=== PATIENT | female | born 1940 | race Caucasian/White ===

== ENCOUNTER 2019-02-24 22:07 | Inpatient (IN) | payer MEDICARE ==
[2019-02-24] MEDS ORDERED: NITROGLYCERIN SL TABS 0.4 MG TAB SUBLINGUAL PRN (23:20)
[2019-02-24] MEDS ORDERED: HEPARIN SODIUM,PORCINE 5,000 UNIT/ML 1 ML VIAL IV PRN (23:20)
--- NOTE | 2019-02-24 23:24 | ED ---
Weakness HPI - General Chief complaint: Chest Pain Stated complaint: Cardiac issues Time Seen by Provider: 02/24/19 22:16 Source: patient, EMS, RN notes reviewed, old records reviewed Mode of arrival: EMS Limitations: no limitations - History of Present Illness Initial comments: This is a 78-year-old female the ER for evaluation patient resents today for evaluation regards to not feel well. Patient accepted in transfer for and STEMI compounded with urinary tract infection versus pyelonephritis. Patient has no abdominal pain currently. Patient on antibiotics is elevated troponin with no chest pain. No fevers no recent travel history no sick contacts. History obtained from EMS and patient's records. Patient currently denying any chest pain some mild anterior suprapubic abdominal pain MD Complaint: generalized weakness -: unknown Location: generalized Severity: mild Improves with: none Worsens with: none Context: recent illness, recent surgery Associated Symptoms: fever/chills, nausea/vomiting - Related Data Home Medications Medication Instructions Recorded Confirmed Aspirin 81 mg PO DAILY 02/24/19 02/24/19 Atorvastatin [Lipitor] 20 mg PO DAILY 02/24/19 02/24/19 Calcium Carbonate/Vitamin D3 1 tab PO HS 02/24/19 02/24/19 [Calcium 500-Vit D3 200 Tablet] Furosemide [Lasix] 20 mg PO DAILY 02/24/19 02/24/19 Lisinopril [Zestril] 5 mg PO DAILY 02/24/19 02/24/19 Magnesium Oxide [Mag-Ox] 250 mg PO DAILY 02/24/19 02/24/19 Multivitamins, Thera [Multivitamin 1 tab PO DAILY 02/24/19 02/24/19 (formulary)] Oxybutynin Chloride [Oxybutynin 10 mg PO DAILY 02/24/19 02/24/19 Chloride ER] Tamsulosin HCl [Flomax] 0.4 mg PO DAILY 02/24/19 02/24/19 Warfarin [Coumadin] 5 mg PO MOWEFR 02/24/19 02/24/19 Warfarin [Coumadin] 7.5 mg PO SUTUTHSA 02/24/19 02/24/19 Allergies Allergy/AdvReac Type Severity Reaction Status Date / Time codeine Allergy Nausea Verified 02/24/19 23:08 Penicillins Allergy Itching Verified 02/24/19 23:08 Review of Systems ROS Statement: Those systems with pertinent positive or pertinent negative responses have been documented in the HPI. ROS Other: All systems not noted in ROS Statement are negative. Past Medical History Past Medical History: Atrial Fibrillation, Deep Vein Thrombosis (DVT), GERD/Reflux, Renal Disease, Sleep Apnea/CPAP/BIPAP, Thyroid Disorder, Vascular Disorder History of Any Multi-Drug Resistant Organisms: None Reported Past Surgical History: Ablation, Cholecystectomy, Hysterectomy Past Psychological History: No Psychological Hx Reported Smoking Status: Former smoker Past Alcohol Use History: None Reported Past Drug Use History: None Reported General Exam Limitations: no limitations General appearance: alert, in no apparent distress Head exam: Present: atraumatic, normocephalic, normal inspection Eye exam: Present: normal appearance, PERRL, EOMI. Absent: scleral icterus, conjunctival injection, periorbital swelling ENT exam: Present: normal exam, mucous membranes moist Neck exam: Present: normal inspection. Absent: tenderness, meningismus, lymphadenopathy Respiratory exam: Present: normal lung sounds bilaterally. Absent: respiratory distress, wheezes, rales, rhonchi, stridor Cardiovascular Exam: Present: regular rate, normal rhythm, normal heart sounds. Absent: systolic murmur, diastolic murmur, rubs, gallop, clicks GI/Abdominal exam: Present: soft, normal bowel sounds. Absent: distended, tenderness, guarding, rebound, rigid Extremities exam: Present: normal inspection, full ROM, normal capillary refill. Absent: tenderness, pedal edema, joint swelling, calf tenderness Back exam: Present: normal inspection Neurological exam: Present: alert, oriented X3, CN II-XII intact Psychiatric exam: Present: normal affect, normal mood Skin exam: Present: warm, dry, intact, normal color. Absent: rash Course Vital Signs 02/24/19 22:16 Temperature 98.1 F Pulse Rate 65 Respiratory 18 Rate Blood Pressure 110/55 O2 Sat by Pulse 94 L Oximetry - Reevaluation(s) Reevaluation #1: 02/24/19 23:22 Medical record and transfer paperwork have been reviewed patient does have elevated troponin, positive urinary tract infection CT head and pelvis was negative Reevaluation #2: 02/24/19 23:23 Spoke with transferring physician regarding patient, we did accept patient's transfer hospital Reevaluation #3: 02/24/19 23:23 Patient currently denies any chest pain or shortness of breath - Consultations Consultation #1: spoke w Dr Green who accepts admission Medical Decision Making - Medical Decision Making 38 female the ER for evaluation presents today for evaluation in transfer, patient with urinary tract infection complicated and NSTEMI, troponin elevation with no EKG changes, no chest pain Disposition Clinical Impression: NSTEMI (non-ST elevated myocardial infarction), UTI (urinary tract infection) Disposition: ADMITTED IP TO THIS HOSP Condition: Fair Is patient prescribed a controlled substance at d/c from ED?: No Referrals: Julieth Triana MD [Primary Care Provider] - 1-2 days
[2019-02-24] MEDS ORDERED: HEPARIN SOD,PORK IN 0.45% NACL 25,000 UNIT in 0.45% NACL 1 250ML.BAG IV SCH (23:30)
[2019-02-24] MEDS: SODIUM CHLORIDE 0.9% 1,000 ML IV SCH (23:51)
[2019-02-25 01:08] VITALS: BMI 47.2
[2019-02-25] MEDS: MORPHINE SULFATE 4 MG/ML SYRINGE IV PRN ×2 (05:45→18:04)
[2019-02-25 06:14] LABS: Mean Platelet Volume 5.8; Platelet Count 190 k/uL (150-450)
[2019-02-25 06:26] LABS: Cholesterol 133 mg/dL (<200); HDL Cholesterol 60 mg/dL (40-60); LDL Cholesterol,Calculated 59 mg/dL (0-99); Triglycerides 72 mg/dL (<150)
[2019-02-25] MEDS ORDERED: ASPIRIN 325 MG TAB PO SCH (09:00)
[2019-02-25] MEDS ORDERED: SODIUM CHLORIDE 0.9% 1,000 ML in EMPTY BAG 1 BAG IV ONE (09:03)
[2019-02-25] MEDS ORDERED: ALPRAZolam 0.25 MG TAB PO PRN (09:03)
[2019-02-25] MEDS ORDERED: ASPIRIN 325 MG TAB PO STA (09:03)
[2019-02-25] MEDS ORDERED: NITROGLYCERIN SL TABS 0.4 MG TAB SUBLINGUAL PRN (09:03)
[2019-02-25] MEDS ORDERED: ATORVASTATIN 80 MG TAB PO STA (09:03)
[2019-02-25] MEDS ORDERED: ALPRAZolam 0.5 MG TAB PO PRN (09:03)
[2019-02-25 09:20] LABS: Calcium 9.3 mg/dL (8.4-10.2); Magnesium 2.2 mg/dL (1.6-2.3); Potassium 4.3 mmol/L (3.5-5.1)
[2019-02-25 09:29] LABS: Basophils % (A) 1 %; Eosinophils % (A) 1 %; HCT 37.4 % (34.0-46.0); HGB 12.2 gm/dL (11.4-16.0); Hypochromasia Slight; Lymphocytes # (A) 0.8 k/uL (1.0-4.8); Lymphocytes % (A) 16 %; MCH 31.1 pg (25.0-35.0); MCHC 32.7 g/dL (31.0-37.0); MCV 95.1 fL (80.0-100.0); Mean Platelet Volume 6.5; Monocytes # (A) 0.4 k/uL (0-1.0); Monocytes % (A) 9 %; Neutrophils # (A) 3.3 k/uL (1.3-7.7); Neutrophils % (A) 70 %; Platelet Count 199 k/uL (150-450); RBC 3.94 m/uL (3.80-5.40); RDW 13.4 % (11.5-15.5); WBC 4.7 k/uL (3.8-10.6)
[2019-02-25] MEDS ORDERED: IV FLUID CONTINUATION 1,000 ML IV ONE (11:12)
[2019-02-25] MEDS ORDERED: fentaNYL (PF) 50 MCG/ML 2 ML AMP ONE (11:44)
[2019-02-25] MEDS ORDERED: LIDOCAINE 1% INJ 10MG/ML (20 ML MDV) SQ ONE (11:47)
[2019-02-25] MEDS ORDERED: fentaNYL (PF) 50 MCG/ML 2 ML AMP IV ONE (11:48)
[2019-02-25] MEDS ORDERED: MIDAZOLAM 2 MG/2 ML VIAL IV ONE (11:48)
--- NOTE | 2019-02-25 11:59 | P.HPIM ---
History of Present Illness 78-year-old female came in with complaints of weakness tiredness and a fall. Found to have elevated troponinof 2.5 and 1.77 patient has normal kidney function. Patient was believed to have UTI because of abnormal uterine and tiredness and apparently had some increased urinary frequency as well. Although his Fall, tiredness is probably secondary to myocardial infarction. Patient denied any syncopal episode. Patient will undergo cardiac catheterization today.patient denied any fever chills patient doesn't have any leukocytosis Review of Systems REVIEW OF SYSTEMS: CONSTITUTIONAL: as mentioned in HPI HEENT: No recent visual problems or hearing problems. Denied any sore throat. CARDIOVASCULAR: No chest pain, orthopnea, PND, no palpitations, no syncope. PULMONARY: No shortness of breath, no cough, no hemoptysis. GASTROINTESTINAL: No diarrhea, no nausea, no vomiting, no abdominal pain. NEUROLOGICAL: No headaches, no weakness, no numbness. HEMATOLOGICAL: Denies any bleeding or petechiae. GENITOURINARY: Denies any burning micturition, frequency, or urgency. MUSCULOSKELETAL/RHEUMATOLOGICAL: Denies any joint pain, swelling, or any muscle pain. ENDOCRINE: Denies any polyuria or polydipsia. The rest of the 14-point review of systems is negative. Past Medical History Past Medical History: Atrial Fibrillation, Deep Vein Thrombosis (DVT), GERD/Reflux, Renal Disease, Sleep Apnea/CPAP/BIPAP, Thyroid Disorder, Vascular Disorder History of Any Multi-Drug Resistant Organisms: None Reported Past Surgical History: Ablation, Cholecystectomy, Hysterectomy Additional Past Surgical History / Comment(s): urinary stent placed 02/23 19 Past Psychological History: No Psychological Hx Reported Smoking Status: Former smoker Past Alcohol Use History: None Reported Past Drug Use History: None Reported Medications and Allergies Home Medications Medication Instructions Recorded Confirmed Type Aspirin 81 mg PO DAILY 02/24/19 02/24/19 History Atorvastatin [Lipitor] 20 mg PO DAILY 02/24/19 02/24/19 History Calcium Carbonate/Vitamin D3 1 tab PO HS 02/24/19 02/24/19 History [Calcium 500-Vit D3 200 Tablet] Furosemide [Lasix] 20 mg PO DAILY 02/24/19 02/24/19 History Lisinopril [Zestril] 5 mg PO DAILY 02/24/19 02/24/19 History Magnesium Oxide [Mag-Ox] 250 mg PO DAILY 02/24/19 02/24/19 History Multivitamins, Thera [Multivitamin 1 tab PO DAILY 02/24/19 02/24/19 History (formulary)] Oxybutynin Chloride [Oxybutynin 10 mg PO DAILY 02/24/19 02/24/19 History Chloride ER] Tamsulosin HCl [Flomax] 0.4 mg PO DAILY 02/24/19 02/24/19 History Warfarin [Coumadin] 5 mg PO MOWEFR 02/24/19 02/24/19 History Warfarin [Coumadin] 7.5 mg PO SUTUTHSA 02/24/19 02/24/19 History Allergies Allergy/AdvReac Type Severity Reaction Status Date / Time codeine Allergy Nausea Verified 02/24/19 23:08 Penicillins Allergy Itching Verified 02/24/19 23:08 Physical Exam Vitals: Vital Signs Temp Pulse Pulse Resp BP BP Pulse Ox 02/25/19 08:00 97.9 F 63 18 134/60 96 02/25/19 04:00 97.9 F 61 19 136/81 98 02/25/19 00:00 98.1 F 60 18 134/66 94 L 02/24/19 23:53 69 18 108/60 96 02/24/19 23:41 98.4 F 60 18 133/60 94 L 02/24/19 23:20 97 02/24/19 22:16 98.1 F 65 18 110/55 94 L Intake and Output 02/24/19 02/25/19 02/25/19 22:59 06:59 14:59 Intake Total 250 Output Total 400 Balance -150 Intake: Intake, IV Titration 200 Amount Heparin Sod,Pork in 0.45% 50 NaCl 25,000 unit In 0.45 % NaCl 1 250ml.bag @ 8.33 UNITS/KG/HR 10.013 mls/ hr IV .Q24H MARILIN Rx#: [id number] Sodium Chloride 0.9% 1, 100 000 ml @ 20 mls/hr IV . Q24H [facility]ILIN Rx#:[id number] cefTRIAXone 1 gm In 50 Sodium Chloride 0.9% 50 ml @ 100 mls/hr IVPB Q24H MARILIN Rx#:[id number] Oral 50 Output: Urine 400 Other: Voiding Method Bedside Commode Bedside Commode # Voids 3 Weight 120.202 kg 121.1 kg PHYSICAL EXAMINATION: GENERAL: The patient is alert and oriented x3, not in any acute distress. obese HEENT: Pupils are round and equally reacting to light. EOMI. No scleral icterus. No conjunctival pallor. Normocephalic, atraumatic. No pharyngeal erythema. No thyromegaly. CARDIOVASCULAR: S1 and S2 present. No murmurs, rubs, or gallops. PULMONARY: Chest is clear to auscultation, no wheezing or crackles. ABDOMEN: Soft, nontender, nondistended, normoactive bowel sounds. No palpable organomegaly. MUSCULOSKELETAL: No joint swelling or deformity. EXTREMITIES: No cyanosis, clubbing, or pedal edema. NEUROLOGICAL: Gross neurological examination did not reveal any focal deficits. SKIN: No rashes. Results CBC & Chem 7: 02/25/19 05:23 02/25/19 05:23 Labs: Abnormal Lab Results - Last 24 Hours (Table) 02/24/19 02/24/19 02/25/19 Range/Units 23:40 23:40 05:23 Lymphocytes # (1.0-4.8) k/uL APTT 48.2 H 41.8 H (22.0-30.0) sec Chloride (98-107) mmol/L Troponin I 2.590 H* (0.000-0.034) ng/mL 02/25/19 02/25/19 02/25/19 Range/Units 05:23 05:23 05:23 Lymphocytes # 0.8 L (1.0-4.8) k/uL APTT (22.0-30.0) sec Chloride 110 H (98-107) mmol/L Troponin I 1.770 H* (0.000-0.034) ng/mL Thrombosis Risk Factor Assmnt - Choose All That Apply Any of the Below Risk Factors Present?: Yes Each Factor Represents 1 point: Obesity (BMI >25), Varicose veins Each Risk Factor Represents 3 Points: Age 75 years or older Thrombosis Risk Factor Assessment Total Risk Factor Score: 5 Thrombosis Risk Factor Assessment Level: High Risk Assessment and Plan Plan: -acute non-ST elevation microinfarction: that happened statin aspirin will undergo cardiac catheterization today. Patient doesn't have any chest pain. -Fatigue: Probably separate microinfarction breath and UTI -asymptomatic bacteriuria rather than urinary tract infection for now good and continue her antibiotic she received 1 dose yesterday wouldn't continue with 1 more dose today and one more dose tomorrow after that to Rocephin will be discontinued. -atrial fibrillation recent diagnosis and patient is on Coumadin which is being held for the cardiac catheterization -Gastroesophageal reflux disease -Sleep apnea -Hypothyroidism dvt prophylaxis with Pepcid
--- NOTE | 2019-02-25 12:02 | ECHOF ---
Referral Reason:lv function MEASUREMENTS -------- HEIGHT: 160.0 cm WEIGHT: 120.7 kg BP: 136/81 RVIDd: 3.4 cm (< 3.3) IVSd: 1.5 cm (0.6 - 1.1) LVIDd: 4.5 cm (3.9 - 5.3) LVPWd: 1.4 cm (0.6 - 1.1) IVSs: 1.8 cm LVIDs: 3.2 cm LVPWs: 1.8 cm LA Diam: 3.8 cm (2.7 - 3.8) LAESV Index (A-L): 31.13 ml/m Ao Diam: 3.4 cm (2.0 - 3.7) AV Cusp: 1.5 cm (1.5 - 2.6) MV EXCURSION: 15.119 mm (> 18.000) MV EF SLOPE: 67 mm/s (70 - 150) EPSS: 2.1 cm MV E Gualberto: 0.90 m/s MV DecT: 216 ms MV A Gualberto: 0.98 m/s MV E/A Ratio: 0.92 AV maxP.22 mmHg AV meanP.32 mmHg FINDINGS -------- Sinus rhythm. This was a technically adequate study. The left ventricular size is normal. There is moderate concentric left ventricular hypertrophy. O verall left ventricular systolic function is normal with, an EF between 60 - 65 %. The right ventricle is mildly enlarged. LA is midly dilated 29-33ml/m2. The right atrium is normal in size. Interatrial and interventricular septum intact. There is moderate aortic valve sclerosis. There is moderate aortic stenosis present. Peak/mean gr adient across the Aortic Valve is 51.22mmHg / 27.32mmHg. Mild mitral annular calcification present. The tricuspid valve appears structurally normal. The pulmonic valve was not well visualized. The aortic root size is normal. Normal inferior vena cava with normal inspiratory collapse consistent with estimated right atrial pre ssure of 5 mmHg. There is no pericardial effusion. CONCLUSIONS -------- 1. Sinus rhythm. 2. This was a technically adequate study. 3. The left ventricular size is normal. 4. There is moderate concentric left ventricular hypertrophy. 5. Overall left ventricular systolic function is normal with, an EF between 60 - 65 %. 6. The right ventricle is mildly enlarged. 7. LA is midly dilated 29-33ml/m2. 8. The right atrium is normal in size. 9. Interatrial and interventricular septum intact. 10. There is moderate aortic valve sclerosis. 11. There is moderate aortic stenosis present. 12. Peak/mean gradient across the Aortic Valve is 51.22mmHg / 27.32mmHg. 13. Mild mitral annular calcification present. 14. The tricuspid valve appears structurally normal. 15. The pulmonic valve was not well visualized. 16. The aortic root size is normal. 17. Normal inferior vena cava with normal inspiratory collapse consistent with estimated right atrial pressure of 5 mmHg. 18. There is no pericardial effusion. VALIDATION INTERN: Rekha Brower RDCS
--- NOTE | 2019-02-25 12:27 | CONS ---
CONSULTATION CHIEF COMPLAINT: Near syncope and chest pain. Yanna is a 78-year-old lady with history of paroxysmal atrial fibrillation, status post ablation, dyslipidemia and hypertension who had recently been diagnosed with renal stones and has had ureteric stent and also had lithotripsy. Her most recent urological intervention was 2 days ago following which she went home and felt weak, tired and was down on the ground. She was lying on the floor for an hour. She did not lose consciousness, just felt fatigued and unable to get up. She did not have any chest pain or difficulty in breathing. She was helped by her brothers and subsequently EMS was called and patient was transferred to the hospital. She has had chest discomfort that she describes as tightness, mild intensity at rest without definite radiation to neck, arm or back. Her troponin was mildly elevated. She initially presented to [facility] and from there she was transferred over to [facility]. Her troponins are elevated at 2.5 and 1.7. LABS: Show that the white cell count is normal, hemoglobin is normal. Platelet count is 199, potassium is 4.3 and creatinine is 0.8 with an LDL cholesterol of 59. The patient had acute non ST-segment elevation CT and I advised her to undergo cardiac catheterization. She also has urinary tract infection and has already received a dose of antibiotic and she does not have any fever. PAST MEDICAL HISTORY: Significant for paroxysmal atrial fibrillation status post ablation, hypertension, dyslipidemia. CURRENT MEDICATIONS: Include Coumadin, Zestril, Flomax, aspirin, Lasix, Lipitor. ALLERGIES: To CODEINE and PENICILLIN. FAMILY HISTORY: Negative for premature coronary artery disease. SOCIAL HISTORY: Negative for smoking, EtOH abuse, or drug abuse. REVIEW OF SYSTEMS: HEENT: Unremarkable. CARDIAC: As described above. RESPIRATORY: Negative. GI: Negative. GENITOURINARY: Significant for renal stones. PSYCHOSOCIAL: Negative. ENDOCRINE: Negative. DERM: Negative. CONSTITUTIONAL: Negative. ONCOLOGICAL: Negative. Rest of the system review is not relevant. PHYSICAL EXAM: Patient is comfortable at rest. Afebrile. Heart rate is 60 beats per minute, blood pressure is 136/81, respiratory rate is 18. There is no jugular venous distention. Carotid upstroke is normal. There is no bruit. CHEST: Exam reveals good air entry bilaterally. HEART: Exam reveals first and second heart sounds. No gallop. No murmur. No rub. ABDOMEN: Soft, nontender. Exam of extremities did not reveal any edema. 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 LABS: As described above. I will obtain an EKG. I will obtain an echocardiogram. ASSESSMENT: 1. Acute non ST-segment elevation myocardial infarction. 2. Paroxysmal atrial fibrillation status post ablation. PLAN: Patient will undergo cardiac catheterization and will decide on further course of action. MMODL / IJN: [id number] /
[2019-02-25] MEDS ORDERED: BIVALIRUDIN BOLUS 250 MG/50 ML IV ONE (12:32)
[2019-02-25] MEDS ORDERED: BIVALIRUDIN 250 MG in SODIUM CHLORIDE 0.9% 31 ML IV ONE (12:33)
[2019-02-25] MEDS ORDERED: CLOPIDOGREL 75 MG TAB ONE (12:44)
[2019-02-25] MEDS ORDERED: IOPAMIDOL-370 125ML BTL INJ ONE (12:46)
[2019-02-25] MEDS ORDERED: CLOPIDOGREL 75 MG TAB PO ONE (12:46)
[2019-02-25] MEDS ORDERED: WARFARIN 7.5 MG TAB PO SCH (18:00)
--- NOTE | 2019-02-25 18:10 | LTR ---
DATE OF SERVICE: 02/25/[address] Triana: I performed cardiac catheterization on Yanna Montelongo. This is a 78-year-old lady with history of paroxysmal atrial fibrillation, who presented to us with near syncope and non ST-segment elevation SD. Her cardiac catheterization revealed a 60-70 percent mid right coronary artery and patient may undergo angioplasty with stent placement of the same. Thank you for giving me the privilege to participate in the care of his pleasant lady. Sincerely, ERWIN / AIDANN: [id number] /
--- NOTE | 2019-02-25 18:10 | CC ---
CARDIAC CATHETERIZATION REPORT INDICATION: Non ST-segment elevation WI. PROCEDURE NOTE: After obtaining informed consent, left heart catheterization and coronary angiogram were performed via the right femoral artery using standard Akash catheters. Patient tolerated the procedure well without any obvious immediate complications. A femoral angiogram was performed. SEDATION: The patient received moderate conscious sedation. Total sedation time was 19 minutes. The right coronary artery was selectively engaged using a brandon catheter. FINDINGS: HEMODYNAMICS: Left ventricular end-diastolic pressure is 14-16 mm. There is no significant gradient across the aortic valve. LEFT VENTRICULOGRAM: Left ventriculogram is not performed. ANGIOGRAPHIC DATA: LEFT MAIN CORONARY ARTERY: Left main coronary artery is a normal-sized vessel and is free of stenosis. Divides into left anterior descending coronary artery and circumflex coronary artery. LEFT ANTERIOR DESCENDING CORONARY ARTERY: LAD and its branches, circumflex coronary artery and its branches are free of significant stenosis. RIGHT CORONARY ARTERY: Right coronary artery is a large dominant vessel. There is a 60- 70 percent mid RCA lesion. CONCLUSIONS: 60-70% stenosis involving mid RCA. PLAN: I am going to review angiographic data with Dr. Iza Chaney, the on-call manager discovery, and see if we should stent the mid RCA. MMODL / IJN: [id number] /
--- NOTE | 2019-02-25 18:48 | PTCA ---
PERCUTANEOUSTRANS CORORONARY ANGIOGRAPHY DATE OF SERVICE: 02/25/2019 PROCEDURE: Percutaneous transluminal coronary angioplasty and stenting of mid right coronary artery with a bare metal stent. PERFORMED BY: Dr. Iza Chaney. Moderate conscious sedation time was 15 minutes. Patient was administered Versed. Oxygen saturation, hemodynamics and EKG were monitored closely. CLINICAL INFORMATION: Mrs. Yanna Montelongo is a 78-year-old lady who has history of paroxysmal atrial fibrillation, status post ablation by Dr. Briscoe. She also has hypertension and hyperlipidemia. She is on Coumadin and lisinopril and came into the hospital upon transfer from [facility], where she presented with some nonspecific symptoms, had a troponin elevation and also had recent renal artery stones with lithotripsy and a ureteral stent. She is supposed to get her ureteral stent removal in the next week or 10 days. However, she presented to [facility], had elevated troponin of up to 2.5, was transferred here with a diagnosis of acute [id number] IN. Cardiac catheterization by Dr. Khan revealed mild disease in the left system, but there was a mid RCA plaque rupture-type lesion, best seen in the HAHN projection on picture #13 image 22. There is an eccentric 70% to 80% lesion suggestive of plaque rupture. Intervention was advised and I performed this expeditiously. Given the fact patient requires a surgical procedure for stent removal in the next one month, I recommended that we use a bare metal stent after due discussion with Dr. Khan and the patient. PROCEDURE NOTE: The existing 6-German introducer in the right femoral artery was used to perform the procedure. I used a [facility] guide catheter to cannulate the right coronary artery, a run- through wire to cross the lesion. Without predilatation, a 12 mm long, 3.0 caliber Vision bare metal stent was deployed at 12 atmospheres. Patient had mild chest pain. No significant EKG changes. Excellent angiographic result was achieved without complication. The sheath was taken out and Angio-Seal device used to secure hemostasis. Patient received Angiomax bolus and infusion as per protocol. She received 600 mg of Plavix orally. The patient can have her Ureteral stent removal ideally after one month of dual antiplatelet therapy, but if this is necessary to be done sooner, it can be done after 15 days. Results were discussed with the patient and family. I expect she will be discharged in the next 24 to 48 hours. MMYAREDL / IJN: [id number] / MTDD
[2019-02-25] MEDS: ONDANSETRON 4 MG/2 ML VIAL IVP PRN (19:01)
[2019-02-25] MEDS: METOPROLOL TARTRATE 12.5 MG TAB PO SCH (20:23)
[2019-02-25] MEDS: ATORVASTATIN 80 MG TAB PO SCH (20:23)
[2019-02-25] MEDS: LISINOPRIL 10 MG TAB PO SCH (20:23)
[2019-02-25] MEDS: FAMOTIDINE 20 MG TAB PO SCH (20:23)
[2019-02-26] MEDS: SODIUM CHLORIDE 0.9% 1,000 ML IV SCH ×2 (00:05→11:39)
[2019-02-26 00:58] LABS: Basophils # (A) 0.1 k/uL (0-0.2); Basophils % (A) 2 %; Eosinophils # (A) 0.1 k/uL (0-0.7); Eosinophils % (A) 3 %; HCT 34.2 % (34.0-46.0); HGB 11.3 gm/dL (11.4-16.0); Lymphocytes # (A) 0.6 k/uL (1.0-4.8); Lymphocytes % (A) 17 %; MCH 30.5 pg (25.0-35.0); MCV 92.3 fL (80.0-100.0); Mean Platelet Volume 6.5; Monocytes # (A) 0.2 k/uL (0-1.0); Monocytes % (A) 6 %; Neutrophils # (A) 2.5 k/uL (1.3-7.7); Neutrophils % (A) 69 %; Platelet Count 205 k/uL (150-450); RBC 3.71 m/uL (3.80-5.40); RDW 13.5 % (11.5-15.5); WBC 3.7 k/uL (3.8-10.6)
[2019-02-26 07:11] LABS: HCT 37.8 % (34.0-46.0); HGB 11.9 gm/dL (11.4-16.0); MCH 29.4 pg (25.0-35.0); MCHC 31.5 g/dL (31.0-37.0); MCV 93.4 fL (80.0-100.0); Mean Platelet Volume 6.4; Platelet Count 216 k/uL (150-450); RBC 4.05 m/uL (3.80-5.40); RDW 13.5 % (11.5-15.5); WBC 5.6 k/uL (3.8-10.6)
[2019-02-26 07:18] LABS: Prothrombin Time 10.8 sec (9.0-12.0)
[2019-02-26 07:27] LABS: Potassium 4.3 mmol/L (3.5-5.1)
[2019-02-26 08:33] VITALS: RESP 18
[2019-02-26] MEDS ORDERED: LISINOPRIL 5 MG TAB PO SCH (09:00)
[2019-02-26] MEDS: METOPROLOL TARTRATE 12.5 MG TAB PO SCH ×2 (10:02→19:46)
[2019-02-26] MEDS: CLOPIDOGREL 75 MG TAB PO SCH (10:02)
[2019-02-26] MEDS: FAMOTIDINE 20 MG TAB PO SCH (10:02)
[2019-02-26] MEDS: ASPIRIN 81 MG PO SCH (10:02)
[2019-02-26] MEDS: LISINOPRIL 10 MG TAB PO SCH (10:03)
[2019-02-26] MEDS: OXYBUTYNIN 10 MG TAB.ER.24 PO SCH (10:03)
--- NOTE | 2019-02-26 12:19 | P.PN ---
Subjective Progress Note Date: 02/26/19 This is a 78-year-old female with known history of paroxysmal atrial fibrillation and prior ablation, hyperlipidemia, hypertension, who recently was diagnosed with kidney stones, has stent placed in her ureter and also lithotripsy. Her most recent urological intervention was 2 days ago, after re turning home she felt weak and tired and was found down on the ground. For approximately an hour. According to her she did not pass out, she was just too weak to get up. She presented to the hospital, complained of some symptoms of chest discomfort, troponin was mildly elevated, so the patient was taken to the cardiac catheterization lab and subsequently underwent angioplasty and stenting of the right coronary artery. Echocardiogram with Doppler study was performed which revealed an ejection fraction of 60-65%, moderate aortic stenosis. Blood pressure 124/60 with a heart rate of 60, 96% on room air. White blood cell count 5.6, hemoglobin 11.9, platelet count 216. Sodium 140, potassium 4.3, BUN 13 and creatinine 0.8. Patient feels well this morning, denies any chest pain or difficulty in breathing. EKG from this morning showed a normal sinus rhythm with no change from post-PCI. Patient has been encouraged to be up ambulating today and we'll plan for possible discharge home in 24 hours if stable. Objective - Vital Signs Vital signs: Vital Signs Temp 97.0 F L 02/26/19 12:00 Pulse 62 02/26/19 12:00 Resp 18 02/26/19 12:00 BP 124/60 02/26/19 12:00 Pulse Ox 96 02/26/19 12:00 Intake & Output 02/25/19 02/26/19 02/26/19 18:59 06:59 18:59 Intake Total 681 480 Output Total 600 Balance 681 -600 480 Weight 120.8 kg Intake: IV 321 Oral 360 480 Output: Urine 600 Other: Voiding Method Bedside Commode Bedside Commode Bedside Commode # Voids 1 1 - Exam PHYSICAL EXAMINATION: GENERAL: 78-year-old female in no acute distress at the time of my examination HEENT: Head is atraumatic, normocephalic. Pupils equal, round. Sclera anicteric. Conjunctiva are clear. Mucous membranes of the mouth are moist. Neck is supple. There is no elevated jugular venous pressure. No carotid bruit is heard. HEART EXAMINATION: Heart S1 S2 1 systolic murmur is heard CHEST EXAMINATION: Lungs are clear to auscultation and precussion. No chest wall tenderness is noted on palpation or with deep breathing. ABDOMEN: Soft, nontender. Bowel sounds are heard. No organomegaly noted. EXTREMITIES: 2+ peripheral pulses with no evidence of peripheral edema and no calf tenderness noted. Right groin soft, there is no evidence of any hematoma. NEUROLOGIC patient is awake, alert and oriented 3 . . - Labs CBC & Chem 7: 02/26/19 05:51 02/26/19 05:51 Labs: Abnormal Lab Results - Last 24 Hours (Table) 02/26/19 Range/Units 00:38 WBC 3.7 L (3.8-10.6) k/uL RBC 3.71 L (3.80-5.40) m/uL Hgb 11.3 L (11.4-16.0) gm/dL Lymphocytes # 0.6 L (1.0-4.8) k/uL Assessment and Plan Plan: Assessment and plan #1 non-ST elevation myocardial infarction, status post angioplasty and stenting of the right coronary artery. #2 paroxysmal atrial fibrillation #3 hyperlipidemia #4 hypothyroidism #5 recent ureteral stenting #6 moderate aortic stenosis Plan We will continue the patient on her current medications, continue to monitor the patient for 24 hours and plan for possible discharge home in the morning if stable. DNP note has been reviewed, I agree with a documented findings and plan of care. Patient was seen and examined.
[2019-02-26] MEDS ORDERED: IPRATROPIUM-ALBUTEROL 3 ML NEB INHALATION PRN (12:35)
--- NOTE | 2019-02-26 12:38 | P.PN ---
Subjective 78-year-old female came in with complaints of weakness tiredness and a fall. Found to have elevated troponinof 2.5 and 1.77 patient has normal kidney function. Patient was believed to have UTI because of abnormal uterine and tiredness and apparently had some increased urinary frequency as well. Although his Fall, tiredness is probably secondary to myocardial infarction. Patient denied any syncopal episode. Patient will undergo cardiac catheterization today.patient denied any fever chills patient doesn't have any leukocytosis 02/26/2019 Patient had a cardiac catheterization and stent to RCA patient is clinically doing well at this time. Patient has some wheeze on exam patient will be started on inhaled steroids and inhalation treatments. Constitutional: Denied any fatigue denied any fever. Cardio vascular: denied any chest pain, palpitations Gastrointestinal denied any nausea vomiting Pulmonary: Denied any shortness of breath cough Neurologic denied any new focal deficits All inpatient medications were reviewed and appropriate changes in these medications as dictated in the interval history and assessment and plan. Objective - Vital Signs Vital signs: Vital Signs Temp 97.0 F L 02/26/19 12:00 Pulse 62 02/26/19 12:00 Resp 18 02/26/19 12:00 BP 124/60 02/26/19 12:00 Pulse Ox 96 02/26/19 12:00 Intake & Output 02/25/19 02/26/19 02/26/19 18:59 06:59 18:59 Intake Total 681 480 Output Total 600 Balance 681 -600 480 Weight 120.8 kg Intake: IV 321 Oral 360 480 Output: Urine 600 Other: Voiding Method Bedside Commode Bedside Commode Toilet Bedside Commode # Voids 1 1 - Exam PHYSICAL EXAMINATION: GENERAL: The patient is alert and oriented x3, not in any acute distress. obese HEENT: Pupils are round and equally reacting to light. EOMI. No scleral icterus. No conjunctival pallor. Normocephalic, atraumatic. No pharyngeal erythema. No thyromegaly. CARDIOVASCULAR: S1 and S2 present. No murmurs, rubs, or gallops. PULMONARY: Minimal expiratory wheeze on exam ABDOMEN: Soft, nontender, nondistended, normoactive bowel sounds. No palpable organomegaly. MUSCULOSKELETAL: No joint swelling or deformity. EXTREMITIES: No cyanosis, clubbing, or pedal edema. NEUROLOGICAL: Gross neurological examination did not reveal any focal deficits. SKIN: No rashes. - Labs CBC & Chem 7: 02/26/19 05:51 02/26/19 05:51 Labs: Abnormal Lab Results - Last 24 Hours (Table) 02/26/19 Range/Units 00:38 WBC 3.7 L (3.8-10.6) k/uL RBC 3.71 L (3.80-5.40) m/uL Hgb 11.3 L (11.4-16.0) gm/dL Lymphocytes # 0.6 L (1.0-4.8) k/uL Assessment and Plan Plan: -acute non-ST elevation microinfarction: that happened statin aspirin patient is status post cardiac catheterization and stenting to RCA -Fatigue: Probably due to myocardial infarction my suspicion is low for UTI patient received 3 days of antibiotics anyway and medics were discontinued -asymptomatic bacteriuria rather than urinary tract infection -atrial fibrillation recent diagnosis and patient is on Coumadin which is being resumed now patient is also on aspirin and Plavix -Mild COPD exacerbation patient will be started on inhaled steroids and inhalational treatments. -Gastroesophageal reflux disease -Sleep apnea -Hypothyroidism dvt prophylaxis with Pepcid
[2019-02-26] MEDS ORDERED: WARFARIN 5 MG TAB PO SCH (18:00)
[2019-02-26] MEDS: ATORVASTATIN 80 MG TAB PO SCH (19:46)
[2019-02-26] MEDS: SYMBICORT 160-4.5 MCG INHALER INHALATION SCH (20:20)
[2019-02-26] MEDS ORDERED: CALCIUM CARB-VIT D 500MG-200UN 1 EACH TAB PO SCH (21:00)
[2019-02-26] MEDS: ONDANSETRON 4 MG/2 ML VIAL IVP PRN (21:27)
[2019-02-27] MEDS ORDERED: LEVOTHYROXINE 88 MCG TAB PO SCH (06:30)
[2019-02-27 06:39] LABS: Mean Platelet Volume 6.4; Platelet Count 211 k/uL (150-450)
[2019-02-27 06:49] LABS: INR 1.1 (<1.2); Prothrombin Time 11.7 sec (9.0-12.0)
[2019-02-27] MEDS: SYMBICORT 160-4.5 MCG INHALER INHALATION SCH (08:23)
[2019-02-27] MEDS ORDERED: MULTIVITAMINS, THERA 1 EACH TAB PO SCH (09:00)
[2019-02-27] MEDS ORDERED: TAMSULOSIN 0.4 MG CAP.ER.24H PO SCH (09:00)
[2019-02-27] MEDS ORDERED: FUROSEMIDE 20 MG TAB PO SCH (09:00)
[2019-02-27] MEDS ORDERED: MAGNESIUM OXIDE 400 MG TAB PO SCH (09:00)
[2019-02-27] MEDS ORDERED: FAMOTIDINE 20 MG TAB PO SCH (09:00)
[2019-02-27] MEDS: CLOPIDOGREL 75 MG TAB PO SCH (09:51)
[2019-02-27] MEDS: METOPROLOL TARTRATE 12.5 MG TAB PO SCH (09:51)
[2019-02-27] MEDS: LISINOPRIL 10 MG TAB PO SCH (09:52)
[2019-02-27] MEDS: OXYBUTYNIN 10 MG TAB.ER.24 PO SCH (09:53)
--- NOTE | 2019-02-27 10:36 | P.PN ---
Subjective Progress Note Date: 02/27/19 This is a 78-year-old female with known history of paroxysmal atrial fibrillation and prior ablation, hyperlipidemia, hypertension, who recently was diagnosed with kidney stones, has stent placed in her ureter and also lithotripsy. Her most recent urological intervention was 2 days ago, after re turning home she felt weak and tired and was found down on the ground. For approximately an hour. According to her she did not pass out, she was just too weak to get up. She presented to the hospital, complained of some symptoms of chest discomfort, troponin was mildly elevated, so the patient was taken to the cardiac catheterization lab and subsequently underwent angioplasty and stenting of the right coronary artery. Echocardiogram with Doppler study was performed which revealed an ejection fraction of 60-65%, moderate aortic stenosis. Blood pressure 124/60 with a heart rate of 60, 96% on room air. White blood cell count 5.6, hemoglobin 11.9, platelet count 216. Sodium 140, potassium 4.3, BUN 13 and creatinine 0.8. Patient feels well this morning, denies any chest pain or difficulty in breathing. EKG from this morning showed a normal sinus rhythm with no change from post-PCI. Patient has been encouraged to be up ambulating today and we'll plan for possible discharge home in 24 hours if stable. 02/27/2019 Patient was seen and examined this morning, denied any chest discomfort, breathing is stable. Blood pressure 112/60 with a heart rate in the 70s, 93% on 2 L of oxygen. Objective - Vital Signs Vital signs: Vital Signs Temp 98.2 F 02/27/19 04:00 Pulse 71 02/27/19 04:00 Resp 18 02/27/19 04:00 BP 112/66 02/27/19 04:00 Pulse Ox 93 L 02/27/19 04:00 Intake & Output 02/26/19 02/27/19 02/27/19 18:59 06:59 18:59 Intake Total 960 240 Output Total 100 Balance 960 -100 240 Weight 123.5 kg Intake: Oral 960 240 Output: Urine 100 Other: Voiding Method Toilet Toilet Toilet Bedside Commode Bedside Commode Bedside Commode # Voids 1 1 - Exam PHYSICAL EXAMINATION: GENERAL: 78-year-old female in no acute distress at the time of my examination HEENT: Head is atraumatic, normocephalic. Pupils equal, round. Sclera anicteric. Conjunctiva are clear. Mucous membranes of the mouth are moist. Neck is supple. There is no elevated jugular venous pressure. No carotid bruit is heard. HEART EXAMINATION: Heart S1 S2 1 systolic murmur is heard CHEST EXAMINATION: Lungs are clear to auscultation and precussion. No chest wall tenderness is noted on palpation or with deep breathing. ABDOMEN: Soft, nontender. Bowel sounds are heard. No organomegaly noted. EXTREMITIES: 2+ peripheral pulses with no evidence of peripheral edema and no calf tenderness noted. Right groin soft, there is no evidence of any hematoma. NEUROLOGIC patient is awake, alert and oriented 3 . . - Labs CBC & Chem 7: 02/27/19 05:55 02/26/19 05:51 Assessment and Plan Plan: Assessment and plan #1 non-ST elevation myocardial infarction, status post angioplasty and stenting of the right coronary artery. #2 paroxysmal atrial fibrillation #3 hyperlipidemia #4 hypothyroidism #5 recent ureteral stenting #6 moderate aortic stenosis Plan We will continue the patient on her current medications, cleared for discharge home today from cardiology standpoint. We'll make her a follow-up appointment to see Dr. Briscoe in the office next week. DNP note has been reviewed, I agree with a documented findings and plan of care. Patient was seen and examined.
[2019-02-27] MEDS: ASPIRIN 81 MG PO SCH (11:17)
[2019-02-27 12:58] VITALS: BP 102/60; PULSE 70; TEMP 98.4
--- NOTE | 2019-02-27 13:30 | P.DS ---
Providers Date of admission: 02/24/19 23:20 Expected date of discharge: 02/27/19 Attending physician: Zehra Green Consults: 02/24/19 23:20 Consult Physician Urgent Consulting Provider: Brittnee Sotelo Consult Reason/Comments: nstemi Do you want consulting provider notified?: Yes Primary care physician: Julieth Triana [facility] Hospital Course: 78-year-old female came in with complaints of weakness tiredness and a fall. Found to have elevated troponinof 2.5 and 1.77 patient has normal kidney function. Patient was believed to have UTI because of abnormal uterine and tiredness and apparently had some increased urinary frequency as well. Although his Fall, tiredness is probably secondary to myocardial infarction. Patient denied any syncopal episode. Patient will undergo cardiac catheterization today.patient denied any fever chills patient doesn't have any leukocytosis 02/26/2019 Patient had a cardiac catheterization and stent to RCA patient is clinically doing well at this time. Patient has some wheeze on exam patient will be started on inhaled steroids and inhalation treatments. 02/27/19 Patient feels well this morning, denies any chest pain or difficulty in breathin g. EKG from this morning showed a normal sinus rhythm with no change from post- PCI. patient will b dc'ed to SNF and f/u with Cards in 1 week Patient Condition at Discharge: Fair Plan - Discharge Summary Discharge Rx Participant: No New Discharge Prescriptions: New Warfarin [Coumadin] 5 mg PO DAILY@1800 #30 tab Atorvastatin [Lipitor] 80 mg PO HS #30 tab Metoprolol Tartrate [Lopressor] 12.5 mg PO BID #30 tab Nitroglycerin Sl Tabs [Nitrostat] 0.4 mg SUBLINGUAL Q5M PRN #14 tab PRN Reason: Chest Pain Clopidogrel [Plavix] 75 mg PO DAILY #30 tab Budesonide-Formot 160-4.5 Mcg [Symbicort 160-4.5 Mcg Inhaler] 2 puff INHALATION RT-BID #1 puff Lisinopril [Zestril] 10 mg PO DAILY #30 tab No Action Oxybutynin Chloride [Oxybutynin Chloride ER] 10 mg PO DAILY Multivitamins, Thera [Multivitamin (formulary)] 1 tab PO DAILY Magnesium Oxide [Mag-Ox] 250 mg PO DAILY Lisinopril [Zestril] 5 mg PO DAILY Aspirin 81 mg PO DAILY Furosemide [Lasix] 20 mg PO DAILY Atorvastatin [Lipitor] 20 mg PO DAILY Warfarin [Coumadin] 5 mg PO MOWE Warfarin [Coumadin] 7.5 [facility] Calcium Carbonate/Vitamin D3 [Calcium 500-Vit D3 200 Tablet] 1 tab PO HS Tamsulosin HCl [Flomax] 0.4 mg PO DAILY Levothyroxine Sodium [Synthroid] 88 mcg PO DAILY Discharge Medication List Aspirin 81 mg PO DAILY 02/24/19 [History] Atorvastatin [Lipitor] 20 mg PO DAILY 02/24/19 [History] Calcium Carbonate/Vitamin D3 [Calcium 500-Vit D3 200 Tablet] 1 tab PO HS 02/24/19 [History] Furosemide [Lasix] 20 mg PO DAILY 02/24/19 [History] Lisinopril [Zestril] 5 mg PO DAILY 02/24/19 [History] Magnesium Oxide [Mag-Ox] 250 mg PO DAILY 02/24/19 [History] Multivitamins, Thera [Multivitamin (formulary)] 1 tab PO DAILY 02/24/19 [History] Oxybutynin Chloride [Oxybutynin Chloride ER] 10 mg PO DAILY 02/24/19 [History] Tamsulosin HCl [Flomax] 0.4 mg PO DAILY 02/24/19 [History] Warfarin [Coumadin] 5 mg PO MOWEFR 02/24/19 [History] Warfarin [Coumadin] 7.5 mg PO SUTUTHSA 02/24/19 [History] Levothyroxine Sodium [Synthroid] 88 mcg PO DAILY 02/26/19 [History] Atorvastatin [Lipitor] 80 mg PO HS #30 tab 02/27/19 [Rx] Budesonide-Formot 160-4.5 Mcg [Symbicort 160-4.5 Mcg Inhaler] 2 puff INHALATION RT-BID #1 puff 02/27/19 [Rx] Clopidogrel [Plavix] 75 mg PO DAILY #30 tab 02/27/19 [Rx] Lisinopril [Zestril] 10 mg PO DAILY #30 tab 02/27/19 [Rx] Metoprolol Tartrate [Lopressor] 12.5 mg PO BID #30 tab 02/27/19 [Rx] Nitroglycerin Sl Tabs [Nitrostat] 0.4 mg SUBLINGUAL Q5M PRN #14 tab 02/27/19 [Rx] Warfarin [Coumadin] 5 mg PO DAILY@1800 #30 tab 02/27/19 [Rx] Follow up Appointment(s)/Referral(s): Fantasma Briscoe MD [STAFF PHYSICIAN] - 03/06/19 11:30 am (Saturday with [employer] -Previously scheduled appointment) Julieth Triana MD [Primary Care Provider] - 1-2 days Patient Instructions/Handouts: *Surgery [facility] - After Heart Catheterization - General Freight Agent Instructions, Urinary Tract Infection in Women (DC) Activity/Diet/Wound Care/Special Instructions: CARDIAC CATHETERIZATION INSTRUCTIONS: 1. Support your puncture site by applying firm, steady pressure whenever you cough, laugh, sneeze or bear down to have a bowel movement (2-day restriction). 2. Watch for any excessive bruising, active bleeding, a firm knot forming under your skin, extreme tenderness and signs of infection (redness, swelling, fever). 3. Shower daily, do not soak puncture in a tub bath, jacuzzi, pool, jacobson etc. for 1 week. This is to prevent risk of infection. 4. Drink plenty of fluids the day of and day after your procedure to flush contrast dye out of your kidneys. 5. Take all medications as directed. Never stop any new medication without your physicians OK. 6. No driving for 2 days after procedure. 7. 10- pound weight lifting restriction for 1 week. 8. Low sodium/low fat diet. 9. Activity limited until follow up appointment with your propeller engineer. In case of any problems, please call [facility] [place] @ [phone]. Discharge Disposition: TRANSFER TO SNF/ECF
== END 2019-02-27 16:24 | DRG 249 ==
LOC: EC 22:07 → 3SCARD 23:20
PROVIDERS: ADMIT Hospitalist; ATTEND Hospitalist
PROC: 02703DZ Dilation of Coronary Artery, One Artery with Intraluminal Device, Percutaneous Approach (ICD-10-PCS; principal; 2019-02-25 11:12)
PROC: B2111ZZ Fluoroscopy of Multiple Coronary Arteries using Low Osmolar Contrast (ICD-10-PCS; 2019-02-25 11:12)
PROC: 4A023N7 Measurement of Cardiac Sampling and Pressure, Left Heart, Percutaneous Approach (ICD-10-PCS; 2019-02-25 11:12)
DX: I21.4 Non-ST elevation (NSTEMI) myocardial infarction (principal); N39.0 Urinary tract infection, site not specified; I25.10 Atherosclerotic heart disease of native coronary artery without angina pectoris; E03.9 Hypothyroidism, unspecified; E78.5 Hyperlipidemia, unspecified; G47.30 Sleep apnea, unspecified; I10 Essential (primary) hypertension; I35.0 Nonrheumatic aortic (valve) stenosis; I48.0 Paroxysmal atrial fibrillation; K21.9 Gastro-esophageal reflux disease without esophagitis; Z79.01 Long term (current) use of anticoagulants; Z79.82 Long term (current) use of aspirin; Z79.899 Other long term (current) drug therapy; Z87.442 Personal history of urinary calculi; Z87.891 Personal history of nicotine dependence; Z90.710 Acquired absence of both cervix and uterus; Z90.49 Acquired absence of other specified parts of digestive tract; Z88.5 Allergy status to narcotic agent; Z88.0 Allergy status to penicillin; Z79.890 Hormone replacement therapy
CPT/HCPCS: 80048; 80061; 83735; 84484; 85025; 85027; 85049; 85610; 85730; 92920; 93306; 93458; 94640; 99285

== ENCOUNTER 2020-07-25 09:40 | Day surgery (SDC) | payer MEDICARE ==
[2020-07-21 16:21] VITALS: BMI 48.6
[~2020-07-25 09:40] MED LIST: SODIUM CHLORIDE 0.9% 1,000 ML IV SCH
[2020-07-25 11:14] VITALS: BP 210/82; PULSE 59; RESP 18; TEMP 96.9
[2020-07-25 11:34] LABS: INR 3.3 (<1.2); Prothrombin Time 32.2 sec (9.0-12.0)
--- NOTE | 2020-07-25 15:08 | P.EPPROC ---
- EP Procedure Note Electrophysiology Procedure Note: Diagnosis Recurrent presyncope Twelve-lead EKG shows sinus bradycardia 44 beats a minute Erika prolonged MD interval [address]-T waves V3 to V6 Tilt table test for protocol Baseline heart rate 49 beats a minute Blood pressure elevated 178/70 mmHg Patient was tilted upright at night +70 per protocol. There is no symptom change in heart rate nor any significant change blood pressure With ClearSight, her blood pressure was between 130s and 150 mmHg heart rates were in the normal range The patient remained asymptomatic through the procedure She was in supine at the end of procedure Impression Abnormal ECG with a mildly prolonged MD interval narrow QRS and biphasic ST-T wa ves V3 to V6 Hypertension No evidence for neurocardiogenic syncope
== END 2020-07-25 14:20 | disposition home or self-care (01) ==
LOC: CATHEP 09:40
PROVIDERS: ATTEND Internal Medicine Clinical Cardiac Electrophysiology
DX: I49.5 Sick sinus syndrome (principal); I35.1 Nonrheumatic aortic (valve) insufficiency; I48.92 Unspecified atrial flutter; R06.02 Shortness of breath; I48.0 Paroxysmal atrial fibrillation; I10 Essential (primary) hypertension; E78.5 Hyperlipidemia, unspecified; Z72.0 Tobacco use; R53.83 Other fatigue; G47.33 Obstructive sleep apnea (adult) (pediatric); I38 Endocarditis, valve unspecified; I25.10 Atherosclerotic heart disease of native coronary artery without angina pectoris; Z95.5 Presence of coronary angioplasty implant and graft; Z79.82 Long term (current) use of aspirin; Z79.899 Other long term (current) drug therapy; Z79.01 Long term (current) use of anticoagulants; Z79.890 Hormone replacement therapy; Z88.5 Allergy status to narcotic agent; Z88.0 Allergy status to penicillin
CPT/HCPCS: 85610; 93660

== ENCOUNTER 2020-11-17 17:47 | Observation (INO) | payer MEDICARE ==
--- NOTE | 2020-11-17 18:20 | ED ---
General Adult HPI - General Chief complaint: Neuro Symptoms/Deficit Stated complaint: Numbness on Lt Side/Chest Pain Time Seen by Provider: 11/17/20 18:06 Source: patient Mode of arrival: wheelchair Limitations: no limitations - History of Present Illness Initial comments: Dictation was produced using [employer] dictation software. please excuse any gr ammatical, word or spelling errors. Chief Complaint: 80-year-old female presents to the emergency department for left sided History of Present Illness: She is 80-year-old female she states she feels numb to her left shoulder and left lower face and left upper extremity. She states that spent ongoing for the last several hours. She initially noticed it last night. States that the numbness woke her up from sleep. She has no other complaints. Denies any weakness in extremities. No history of stroke. She has history of cardiac disease. Family member at bedside reports no confusion. Patient takes Coumadin. The ROS documented in this emergency department record has been reviewed and confirmed by me. Those systems with pertinent positive or negative responses have been documented in the HPI. All other systems are other negative and/or noncontributory. PHYSICAL EXAM: General Impression: Alert and oriented x3, not in acute distress HEENT: Normocephalic atraumatic, extra-ocular movements intact, pupils equal and reactive to light bilaterally, mucous membranes moist. Cardiovascular: Heart regular rate and rhythm Chest: Able to complete full sentences, no retractions, no tachypnea Abdomen: abdomen soft, non-tender, non-distended, no organomegaly Musculoskeletal: Pulses present and equal in all extremities, no peripheral edema Motor: no focal deficits noted Neurological: CN II-XII grossly intact, no extremity weakness, non-aphasic, NIH of 1 for abnormal sensation Skin: Intact with no visualized rashes Psych: Normal affect and mood ED course: 80-year-old female presents to the emergency department for sensory issues. Clinical presentation concerning for CVA. NIH is 1. Symptoms began last night. Patient outside of the TPA window. Vital signs upon arrival are within acceptable limits. EKG interpretation: Ventricular rate 80, sinus rhythm, AR interval 240, QRS 82, QTc 459. No AR prolongation, no QTC prolongation, no ST or T-wave changes noted. EKG compared to 07/25/2020 showing no changes. Overall, this EKG is unremarkable Laboratory evaluation obtained. CBC markable. INR is therapeutic at 2.9. Metabolic panel is negative. Computed tomography scan of the brain and CT angios the head and neck shows no acute processes. Patient revived bedside at 8:25 PM she is found to be stable medical condition she is still complaining of left-sided paresthesias. At this point CVAs part of the differential. Patient be admitted with consultation to neurology. Patient given aspirin. - Related Data Home Medications Medication Instructions Recorded Confirmed Aspirin 81 mg PO DAILY 02/24/19 07/25/20 Furosemide [Lasix] 20 mg PO DAILY PRN 02/24/19 07/21/20 Magnesium Oxide [Mag-Ox] 250 mg PO BID 02/24/19 07/25/20 Multivitamins, Thera [Multivitamin 1 tab PO DAILY 02/24/19 07/25/20 (formulary)] Levothyroxine Sodium [Synthroid] 88 mcg PO DAILY 02/26/19 07/25/20 Acetaminophen [Tylenol Arthritis] 650 mg PO DAILY PRN 07/21/20 07/25/20 Atorvastatin [Lipitor] 40 mg PO HS 07/21/20 07/25/20 Carvedilol [Coreg] 3.125 mg PO BID 07/21/20 07/25/20 Cinnamon 25 mg PO BID 07/21/20 Diclofenac Sodium [Voltaren 2 gm TOPICAL DAILY PRN 07/21/20 07/25/20 Arthritis Pain 1% Gel] Gabapentin [Neurontin] 100 mg PO HS 07/21/20 07/25/20 Warfarin [Coumadin] 5 mg PO SUTUTHFR 07/21/20 07/25/20 Warfarin [Coumadin] 7.5 mg PO MOWESA 07/21/20 07/25/20 lisinopriL [Zestril] 5 mg PO DAILY 07/21/20 07/25/20 Allergies Allergy/AdvReac Type Severity Reaction Status Date / Time codeine Allergy Nausea Verified 11/17/20 17:56 Latex, Natural Rubber Allergy Itching Verified 11/17/20 17:56 Penicillins Allergy Itching Verified 11/17/20 17:56 Review of Systems ROS Statement: Those systems with pertinent positive or pertinent negative responses have been documented in the HPI. ROS Other: All systems not noted in ROS Statement are negative. Past Medical History Past Medical History: Atrial Fibrillation, Deep Vein Thrombosis (DVT), GERD/R eflux, Hyperlipidemia, Hypertension, Myocardial Infarction ([place]), Renal Disease, Sleep Apnea/CPAP/BIPAP, Thyroid Disorder, Vascular Disorder Additional Past Medical History / Comment(s): kidney stones, cpap, dizziness Last Myocardial Infarction Date:: 01/2019 History of Any Multi-Drug Resistant Organisms: None Reported Past Surgical History: Cardiac Ablation, Cholecystectomy, Heart Catheterization With Stent, Hysterectomy Additional Past Surgical History / Comment(s): urinary stent placed 02/23/19 Past Anesthesia/Blood Transfusion Reactions: No Reported Reaction, Motion Sickness Past Psychological History: No Psychological Hx Reported Smoking Status: Former smoker General Exam Limitations: no limitations Course Vital Signs 11/17/20 17:56 Temperature 98.3 F Pulse Rate 95 Respiratory 18 Rate Blood Pressure 149/69 O2 Sat by Pulse 94 L Oximetry Medical Decision Making - Lab Data Result diagrams: 11/17/20 18:17 11/17/20 18:17 Lab Results 11/17/20 11/17/20 11/17/20 Range/Units 18:17 18:17 18:17 WBC 5.1 (3.8-10.6) k/uL RBC 4.72 (3.80-5.40) m/uL Hgb 14.6 (11.4-16.0) gm/dL Hct 43.7 (34.0-46.0) % MCV 92.6 (80.0-100.0) fL MCH 30.9 (25.0-35.0) pg MCHC 33.3 (31.0-37.0) g/dL RDW 13.0 (11.5-15.5) % Plt Count 214 (150-450) k/uL MPV 7.5 Neutrophils % 69 % Lymphocytes % 20 % Monocytes % 6 % Eosinophils % 3 % Basophils % 1 % Neutrophils # 3.5 (1.3-7.7) k/uL Lymphocytes # 1.0 (1.0-4.8) k/uL Monocytes # 0.3 (0-1.0) k/uL Eosinophils # 0.2 (0-0.7) k/uL Basophils # 0.0 (0-0.2) k/uL PT 28.2 H (9.0-12.0) sec INR 2.9 H (<1.2) APTT 35.7 H (22.0-30.0) sec Sodium 140 (137-145) mmol/L Potassium 3.6 (3.5-5.1) mmol/L Chloride 106 (98-107) mmol/L Carbon Dioxide 28 (22-30) mmol/L Anion Gap 6 mmol/L BUN 21 H (7-17) mg/dL Creatinine 0.68 (0.52-1.04) mg/dL Est GFR (CKD-EPI)AfAm >90 (>60 ml/min/1.73 sqM) Est GFR (CKD-EPI)NonAf 84 (>60 ml/min/1.73 sqM) Glucose 177 H (74-99) mg/dL POC Glucose (mg/dL) (75-99) mg/dL POC Glu Surgical Services Assistant ID Calcium 9.6 (8.4-10.2) mg/dL 11/17/20 Range/Units 18:24 WBC (3.8-10.6) k/uL RBC (3.80-5.40) m/uL Hgb (11.4-16.0) gm/dL Hct (34.0-46.0) % MCV (80.0-100.0) fL MCH (25.0-35.0) pg MCHC (31.0-37.0) g/dL RDW (11.5-15.5) % Plt Count (150-450) k/uL MPV Neutrophils % % Lymphocytes % % Monocytes % % Eosinophils % % Basophils % % Neutrophils # (1.3-7.7) k/uL Lymphocytes # (1.0-4.8) k/uL Monocytes # (0-1.0) k/uL Eosinophils # (0-0.7) k/uL Basophils # (0-0.2) k/uL PT (9.0-12.0) sec INR (<1.2) APTT (22.0-30.0) sec Sodium (137-145) mmol/L Potassium (3.5-5.1) mmol/L Chloride (98-107) mmol/L Carbon Dioxide (22-30) mmol/L Anion Gap mmol/L BUN (7-17) mg/dL Creatinine (0.52-1.04) mg/dL Est GFR (CKD-EPI)AfAm (>60 ml/min/1.73 sqM) Est GFR (CKD-EPI)NonAf (>60 ml/min/1.73 sqM) Glucose (74-99) mg/dL POC Glucose (mg/dL) 178 H (75-99) mg/dL POC Glu Surgical Services Assistant ID Nabeel England Nicole Calcium (8.4-10.2) mg/dL Disposition Clinical Impression: Paresthesia of left arm Disposition: ADMITTED IP TO THIS HOSP Condition: Fair Referrals: Julieth Triana MD [Primary Care Provider] - 1-2 days
[2020-11-17 18:26] LABS: Glucose,Whole Blood 178 mg/dL (75-99)
[2020-11-17 18:48] LABS: Basophils % (A) 1 %; Eosinophils # (A) 0.2 k/uL (0-0.7); Eosinophils % (A) 3 %; HCT 43.7 % (34.0-46.0); HGB 14.6 gm/dL (11.4-16.0); Lymphocytes % (A) 20 %; MCH 30.9 pg (25.0-35.0); MCHC 33.3 g/dL (31.0-37.0); MCV 92.6 fL (80.0-100.0); Mean Platelet Volume 7.5; Monocytes # (A) 0.3 k/uL (0-1.0); Monocytes % (A) 6 %; Neutrophils # (A) 3.5 k/uL (1.3-7.7); Neutrophils % (A) 69 %; Platelet Count 214 k/uL (150-450); RBC 4.72 m/uL (3.80-5.40); WBC 5.1 k/uL (3.8-10.6)
[2020-11-17 19:12] LABS: INR 2.9 (<1.2); Partial Thromboplastin Time 35.7 sec (22.0-30.0); Prothrombin Time 28.2 sec (9.0-12.0)
[2020-11-17 19:16] LABS: African American GFR (CKD) >90 (>60 ml/min/1.73 sqM); Anion Gap 6 mmol/L; Blood Urea Nitrogen 21 mg/dL (7-17); Calcium 9.6 mg/dL (8.4-10.2); Carbon Dioxide 28 mmol/L (22-30); Chloride 106 mmol/L (98-107); Glucose 177 mg/dL (74-99); Non-African American GFR(CKD) 84 (>60 ml/min/1.73 sqM); Potassium 3.6 mmol/L (3.5-5.1); Sodium 140 mmol/L (137-145)
--- NOTE | 2020-11-17 20:12 | CT ---
EXAMINATION: CT brain wo con DATE AND TIME: 11/17/2020 7:42 PM CLINICAL INDICATION: PHH; CVA TECHNIQUE: Standard departmental protocol. Total DLP: 1093.8 mGy-cm COMPARISON: None. FINDINGS: The calvarium is intact. There is no intracranial hemorrhage. There is no intracranial mass or mass effect. No definite new intra-axial or extra-axial attenuation defect. The paranasal sinuses, middle ear cavities, and mastoid sinus air cells are clear. The orbits are unremarkable. IMPRESSION: NO ACUTE PROCESS.
--- NOTE | 2020-11-17 20:20 | CT ---
EXAMINATION TYPE: CT angio head neck DATE OF EXAM: 11/17/2020 HISTORY: CVA, LT side numbness, chest pain. COMPARISON: CT brain without contrast 11/18/2019 CT DLP: 597 mGycm. Automated Exposure Control for Dose Reduction was Utilized. TECHNIQUE: CTA scan of the neck is performed with IV Contrast, patient injected with 65 mL of Isovue 370, axial images are obtained, coronal and sagittal reformatted images are reviewed. Three-D recons tructed images are created on an independent workstation and reviewed. FINDINGS: CAROTID/VASCULAR STRUCTURES: The bilateral carotid and vertebral arterial systems are widely patent w ithout hemodynamically significant stenosis or dissection. INTRACRANIAL ANTERIOR AND POSTERIOR CIRCULATION: The anterior and posterior arterial circulation is w idely patent and without abnormality. OTHER: No incidentals. IMPRESSION: No significant abnormality is seen.
[2020-11-17] MEDS ORDERED: NALOXONE 0.4 MG/ML 1 ML VIAL IV PRN (20:23)
[2020-11-17] MEDS ORDERED: ASPIRIN 81 MG PO STA (20:25)
[2020-11-18] MEDS: SODIUM CHLORIDE 0.9% 1,000 ML IV SCH ×2 (04:07→21:07)
[2020-11-18 11:05] LABS: INR 2.7 (<1.2); Prothrombin Time 26.3 sec (9.0-12.0)
[2020-11-18 12:52] LABS: African American GFR (CKD) >90 (>60 ml/min/1.73 sqM); Anion Gap 2 mmol/L; Blood Urea Nitrogen 17 mg/dL (7-17); Calcium 9.4 mg/dL (8.4-10.2); Carbon Dioxide 32 mmol/L (22-30); Chloride 106 mmol/L (98-107); Glucose 134 mg/dL (74-99); Magnesium 2.1 mg/dL (1.6-2.3); Non-African American GFR(CKD) 84 (>60 ml/min/1.73 sqM); Potassium 4.2 mmol/L (3.5-5.1); Sodium 140 mmol/L (137-145)
[2020-11-18] MEDS: INSULIN ASPART (NovoLOG) 100 UNIT/ML VIAL SQ SCH ×3 (12:52→20:08)
--- NOTE | 2020-11-18 13:17 | P.CNNES ---
History of Present Illness Consult date: 11/18/20 Requesting physician: Fernando Trujillo Reason for Consult: left sided paresthesia, ?CVA History of Present Illness: This is a 80-year-old woman with medical history of chronic neck and lower back pain, atrial fibrillation on Coumadin, hypertension, hyperlipidemia hypothyroidism, DVT, who presented to the emergency department on 11/17/2020 for tingling over the left face and entire left upper extremity. The patient stated that on 11/17/2020 she woke up around 3:00 from sleep and noticed that her left side of the cheek and left entire left upper extremity was tingling. She said that she slept around possibly 9:00 PM on 11/16/2020. She stated that her symptoms at continues to be present the currently. She denies any associated weakness of any of the upper and lower extremity that's new. She did state that she has chronic neck pain as well as lower back pain or neck pain radiates to the left shoulder but that has been going on for years and has not been worsening. She denies of any fever, any headaches, any difficulty getting her words out, any difficulty swallowing, any tingling or numbness anywhere else. She denies any numbness in the face or the left upper extremity at. She stated that she had similar presentation 2001 where she had the cervical surgery was anterior and it was a "cadaver bone" that has resolved. She denies of any nausea or vomiting. Denies of any photophobia photophobia. She stated that the she is also having some left chest pain/pressure. Also is having redness of both eyes and that has started since she's been getting that cataract surgery she had the cataract she thinks in June the right eye and the other eye was a month after and she feels the the redness of the eye had been progressively worse initially started on the right now it's both she followed up with her sandwich counter attendant and she notified him about the redness and that she was given eye drops but not helped. She denies of any ringing of the ears or hearing loss that's more than normal. She denies of any diplopia. She does have blurry vision but again she has noticed that since she is has this cataracts. She uses a cane at baseline because of her chronic lower back pain. Some of the other patient on medication is Lipitor 40 mg daily at bedtime, Synthroid, Lexapro, gabapentin 100 mg daily at bedtime, magnesium oxide, aspirin 81 mg daily. Per cardiology team "Patient recently seen in the office earlier this month had some complaints of dizziness on and off her EKG revealed sinus bradycardia heart rate 44, she was referred for tilt table test by her primary care physician. She also had an echocardiogram which revealed an EF of 55%, severe aortic stenosis which at peak gradient around 70 mmHg such a mean gradient of 45-50 mmHg, which is a progression from her aortic stenosis since 2019" Some of the workup in the hospital consisted of: Initial vital signs: Blood pressure of 149/69, heart rate of 95, respiratory of 18, temperature of 98.3 Fahrenheit and pulse ox of 94% at room air. CBC with differential is unremarkable. Chemistry panel is initial serum glucose is 177 which is elevated otherwise the rest of the chemistry panel is unremarkable. Coagulation study: PT of 28.2, INR 2.9, PTT of 35.7 and the INR is therapeutic. CT of the head is reported as no acute process. CT angiography of the head and neck was reported as no abnormality is seen. EKG is reported as sinus rhythm with sinus arrhythmia with first-degree AV block. Otherwise normal EKG. Review of Systems Review of system: The 12 point system was reviewed and apparent positive and negative per HPI. Past Medical History Past Medical History: Atrial Fibrillation, Deep Vein Thrombosis (DVT), GERD/Reflux, Hyperlipidemia, Hypertension, Myocardial Infarction ([place]), Renal Disease, Sleep Apnea/CPAP/BIPAP, Thyroid Disorder, Vascular Disorder Additional Past Medical History / Comment(s): kidney stones, cpap, dizziness Last Myocardial Infarction Date:: 01/2019 History of Any Multi-Drug Resistant Organisms: None Reported Past Surgical History: Cardiac Ablation, Cholecystectomy, Heart Catheterization With Stent, Hysterectomy Additional Past Surgical History / Comment(s): urinary stent placed 02/23/19 Past Anesthesia/Blood Transfusion Reactions: No Reported Reaction, Motion Sickness Date of Last Stent Placement:: 01/2019 Past Psychological History: No Psychological Hx Reported Smoking Status: Former smoker Past Alcohol Use History: None Reported Additional Past Alcohol Use History / Comment(s): quit smoking 1991 Past Drug Use History: None Reported Medications and Allergies Home Medications Medication Instructions Recorded Confirmed Type Aspirin 81 mg PO DAILY 02/24/19 11/17/20 History Furosemide [Lasix] 20 mg PO DAILY PRN 02/24/19 11/17/20 History Magnesium Oxide [Mag-Ox] 250 mg PO BID 02/24/19 11/17/20 History Multivitamins, Thera [Multivitamin 1 tab PO DAILY 02/24/19 11/17/20 History (formulary)] Levothyroxine Sodium [Synthroid] 88 mcg PO DAILY 02/26/19 11/17/20 History Acetaminophen [Tylenol Arthritis] 1,300 mg PO DAILY PRN 07/21/20 11/17/20 History Atorvastatin [Lipitor] 40 mg PO HS 07/21/20 11/17/20 History Cinnamon 250 mg PO BID 07/21/20 11/17/20 History Diclofenac Sodium [Voltaren 2 gm TOPICAL DAILY PRN 07/21/20 11/17/20 History Arthritis Pain 1% Gel] Gabapentin [Neurontin] 100 mg PO HS 07/21/20 11/17/20 History Warfarin [Coumadin] 5 mg PO SUMOTUTHFR 07/21/20 11/17/20 History Clotrimazole Cream [Lotrimin Cream] 1 applic TOPICAL DAILY PRN 11/17/20 11/17/20 History Warfarin [Coumadin] 7.5 mg PO WESA 11/17/20 11/17/20 History lisinopriL [Zestril] 2.5 mg PO DAILY 11/17/20 11/17/20 History amLODIPine [Norvasc] 2.5 mg PO DAILY 11/18/20 11/18/20 History Allergies Allergy/AdvReac Type Severity Reaction Status Date / Time codeine Allergy Nausea Verified 11/17/20 22:00 Latex, Natural Rubber Allergy Itching Verified 11/17/20 22:00 Penicillins Allergy Itching Verified 11/17/20 22:00 Physical Examination - Vital Signs Vital Signs: Vital Signs Temp Pulse Pulse Resp BP BP Pulse Ox 11/18/20 07:00 97.6 F 53 L 18 164/79 95 11/18/20 02:00 98.2 F 55 L 16 133/57 11/17/20 21:26 97.9 F 71 18 154/84 96 11/17/20 20:41 74 16 120/76 94 L 11/17/20 17:56 98.3 F 95 18 149/69 94 L Intake and Output 11/17/20 11/18/20 11/18/20 22:59 06:59 14:59 Other: Voiding Method Toilet # Voids 1 Weight 122.47 kg GENERAL: The patient is lying in bed and seems in moderate acute distress. CHEST: The heart rate is regular rate rhythm. No murmurs to auscultation. No carotid bruit bilaterally. LUNG: Clear to auscultation bilaterally no wheezing noted throughout. Not labored breathing. ABDOMEN/GI: Bowel sounds present in all 4 quadrants. No tenderness to palpation throughout. NEUROLOGICAL: Higher mental function: The patient is awake, alert, oriented to self, place and time. Patient is following commands. No aphasia and no neglect. Cranial nerves: The pupils are round, equal and reactive to light and accommodation. She has erythema of both eyes (scleral portion). Visual case are full to confrontation throughout. Extraocular movement is intact no nystagmus is noted. Facial sensation is normal to touch throughout (this was test 3 three and said normal but stated it was tingling and not numb). The facial strength is normal throughout. Hearing is normal bilaterally to hand rub. Tongue is midline and moved [id number] without any difficulty. No dysarthria is noted. Shoulder shrug is normal bilaterally. Motor: Gait is some antalgic and uses cane (baseline). The strength is 5 over 5 throughout. Has Lymphedema of bilateral lower extremities. Normal tone and bulk. Cerebellum: Normal finger to nose heel to lima bilaterally. Sensation: Sensation is normal to touch throughout. Reflexes (right/left): 2+ throughout except ankles are 1+ bilaterally. Plantars are downgoing bilaterally. Results - Laboratory Findings CBC and BMP: 11/17/20 18:17 11/18/20 10:38 Abnormal Lab Findings: Abnormal Labs 11/17/20 11/17/20 11/17/20 18:17 18:17 18:24 PT 28.2 H INR 2.9 H APTT 35.7 H BUN 21 H Glucose 177 H POC Glucose (mg/dL) 178 H 11/18/20 10:38 PT 26.3 H INR 2.7 H APTT BUN Glucose POC Glucose (mg/dL) Assessment and Plan Assessment: Left facial paresthesia (V2 distribution) and entire left upper extremity since 11/17. Unknown exact cause. Rule out stroke vs intracranial lesion. Complaint of chest pain Bilateral sclera erythema since had cataract initially on the right and now both --progressively worsening per patient and blurry vision but denies diplopia (for past 1-2 months) Atrial fibrillation on Coumadin (therapeutic INR) Hypertension Hyperlipidemia Hypothyroidism History of DVT Plan: I ordered MRI of the brain and the cervical spine to rule out stroke versus cervical radiculopathy (cervical radiculopathy is unlikely as cause of this). In the ED the patient was given aspirin 324 mg once then was restarted on the patient's home medication of Coumadin as well as aspirin 81 mg daily. The patient was also started on her home dose of Lipitor 40 mg daily at bedtime for secondary stroke prophylaxis. I will not modify her medication until we get her MRI imagines results. I ordered HbA1c, Vitamin B12, folate, Vitamin B6 and TSH level. PT and OT are consulted. Will hold off on 2D echo since had recent one at her geriatric physical therapist office. Every 4 hours neuro checks lipid panel ordered. Increased Gabapentin 100mg qhs to 100mg 1 tab tid and will titrate up if needed. On continuous cardiac monitoring Cardiology is consulted. Recommend Ophthamology consult. We'll defer the rest of medical management to the primary team. The plan is discussed with the patient's nurse. Thank you for the consultation. Dennis Perla M.D. Neuro-hospitalist Time with Patient: Greater than 30
[2020-11-18] MEDS: LEVOTHYROXINE 88 MCG TAB PO SCH (13:24)
[2020-11-18] MEDS: amLODIPine 2.5 MG TAB PO SCH (13:24)
[2020-11-18] MEDS: ASPIRIN 81 MG PO SCH (13:24)
--- NOTE | 2020-11-18 14:37 | P.CRDCN ---
History of Present Illness History of present illness: HISTORY OF PRESENTING ILLNESS This is a pleasant 80-year-old female past medical history significant for coronary artery disease status post PCI to mid RCA in 2019 in the setting of NSTEMI, paroxysmal atrial fibrillation on coumadin, severe/critical aortic stenosis, hypertension, sinus bradycardia, dyslipidemia, GERD. She follows in the office with Dr. Briscoe. We have been asked to see in consultation for chest pain. Patient is seen and examined at bedside in no acute distress. She p resents emergency department for tingling over the left side of her face, left side torso, and entire left upper extremity. Patient states that she woke up around 3 PM she noticed her left side was tingling and numb. She denies any weakness. In terms of her chest pain. She started to have chest pain today after she ate lunch. It is burning in nature. She says it's similar to when she has acid reflux. This pain is nonradiating, nonexertional. She states when she takes Tums or peppermint it helps relieve her pain. Pain mostly comes on after she eats. She denies any shortness of breath, diaphoresis, nausea, vomiting, palpitations. She denies any symptoms of orthopnea or PND. She den ies use of tobacco or alcohol. Patient recently seen in the office earlier this month had some complaints of dizziness on and off her EKG revealed sinus bradycardia heart rate 44, she was referred for tilt table test by her primary care physician. She also had an echocardiogram which revealed an EF of 55%, severe aortic stenosis which at peak gradient around 70 mmHg such a mean gradient of 45-50 mmHg, which is a progression from her aortic stenosis since 2019 DIAGNOSTICS EKG today reveals sinus rhythm, heart rate 63 No significant STT wave abnormalities. No change from EKG on 11/17 Last Cardiac Catheterization 01/2019 which revealed stenosis of the mid RCA, left main coronary artery was free of stenosis. Patient underwent stenting to the mid RCA with Dr. Chaney Patient not on cardiac telemetry at the time of exam CT of the head is reported as no acute process. CT angiography of the head and neck was reported as no abnormality is seen. Laboratory reviewed, CBC unremarkable, INR 2.7, sodium 140, potassium 4.2, BUN 17, serum creatinine 0.6, magnesium 2.1, troponin negative 1 REVIEW OF SYSTEMS At the time of my exam: CONSTITUTIONAL: Denies fever or chills. CARDIOVASCULAR: Denies chest pain, shortness of breath, orthopnea, PND or palpitations. RESPIRATORY: Denies cough. GASTROINTESTINAL: +Epigastric burning apin Denies abdominal pain, diarrhea, constipation, nausea or vomiting. MUSCULOSKELETAL: Denies myalgias. NEUROLOGIC: Left sided tingling numbness Denies headacbe or weakness. ENDOCRINE: Denies fatigue, weight change, polydipsia or polyurina. GENITOURINARY: Denies burning, hematuria or urgency with micturation. HEMATOLOGIC: Denies history of anemia or bleeding. PHYSICAL EXAMINATION Blood pressure 135/77 heart rate 65 afebrile and maintaining oxygen saturation on room air CONSTITUTIONAL: No apparent distress. HEENT: Head is normocephalic. Pupils are equal, round. Sclerae anicteric. Mucous membranes of the mouth are moist. No JVD. No carotid bruit. CHEST EXAMINATION: Lungs are clear to auscultation. No chest wall tenderness is noted on palpation or with deep breathing. HEART EXAMINATION: Regular rate and rhythm. S1, S2 heard. Systolic ejection murmur aortic valve ABDOMEN: Soft, nontender. Positive bowel sounds. EXTREMITIES: 2+ peripheral pulses, no lower extremity edema and no calf tenderness. SKIN: intact NEUROLOGIC EXAMINATION: Patient is awake, alert and oriented x3. ASSESSMENT Chest pain atypical EKG with no evidence of ischemia on EKG, troponin negative GERD Left facial tingling, left torso and entire left upper extremity tingling Severe aortic stenosis Coronary artery disease status post PCI to mid RCA in 2019 in the setting of NST ANA M Paroxysmal atrial fibrillation on coumadin Severe/critical aortic stenosis Hypertension Sinus bradycardia Dyslipidemia PLAN Patient's chest pain is atypical, likely related to her GERD She had a recent echocardiogram with her primary that revealed EF of 55%, severe aortic stenosis which is a progression from her aortic stenosis since 2019, she has had conversations about possible TAVR workup which can be done as an outpatient Neurology is following Rest of management per primary and neurology Further recommendations will be forthcoming after Dr. Khan evaluates the patient this afternoon. Thank you kindly for this consultation. Nurse Practitioner note has been reviewed, I agree with a documented findings and plan of care. Patient was seen and examined. Past Medical History Past Medical History: Atrial Fibrillation, Deep Vein Thrombosis (DVT), GERD/Reflux, Hyperlipidemia, Hypertension, Myocardial Infarction ([place]), Renal Disease, Sleep Apnea/CPAP/BIPAP, Thyroid Disorder, Vascular Disorder Additional Past Medical History / Comment(s): kidney stones, cpap, dizziness Last Myocardial Infarction Date:: 01/2019 History of Any Multi-Drug Resistant Organisms: None Reported Past Surgical History: Cardiac Ablation, Cholecystectomy, Heart Catheterization With Stent, Hysterectomy Additional Past Surgical History / Comment(s): urinary stent placed 02/23/19 Past Anesthesia/Blood Transfusion Reactions: No Reported Reaction, Motion Sickness Date of Last Stent Placement:: 01/2019 Past Psychological History: No Psychological Hx Reported Smoking Status: Former smoker Past Alcohol Use History: None Reported Additional Past Alcohol Use History / Comment(s): quit smoking 1991 Past Drug Use History: None Reported Medications and Allergies Home Medications Medication Instructions Recorded Confirmed Type Aspirin 81 mg PO DAILY 02/24/19 11/17/20 History Furosemide [Lasix] 20 mg PO DAILY PRN 02/24/19 11/17/20 History Magnesium Oxide [Mag-Ox] 250 mg PO BID 02/24/19 11/17/20 History Multivitamins, Thera [Multivitamin 1 tab PO DAILY 02/24/19 11/17/20 History (formulary)] Levothyroxine Sodium [Synthroid] 88 mcg PO DAILY 02/26/19 11/17/20 History Acetaminophen [Tylenol Arthritis] 1,300 mg PO DAILY PRN 07/21/20 11/17/20 History Atorvastatin [Lipitor] 40 mg PO HS 07/21/20 11/17/20 History Cinnamon 250 mg PO BID 07/21/20 11/17/20 History Diclofenac Sodium [Voltaren 2 gm TOPICAL DAILY PRN 07/21/20 11/17/20 History Arthritis Pain 1% Gel] Gabapentin [Neurontin] 100 mg PO HS 07/21/20 11/17/20 History Warfarin [Coumadin] 5 mg PO SUMOTUTHFR 07/21/20 11/17/20 History Clotrimazole Cream [Lotrimin Cream] 1 applic TOPICAL DAILY PRN 11/17/20 11/17/20 History Warfarin [Coumadin] 7.5 mg PO WESA 11/17/20 11/17/20 History lisinopriL [Zestril] 2.5 mg PO DAILY 11/17/20 11/17/20 History amLODIPine [Norvasc] 2.5 mg PO DAILY 11/18/20 11/18/20 History Allergies Allergy/AdvReac Type Severity Reaction Status Date / Time codeine Allergy Nausea Verified 11/17/20 22:00 Latex, Natural Rubber Allergy Itching Verified 11/17/20 22:00 Penicillins Allergy Itching Verified 11/17/20 22:00 Physical Exam Vitals: Vital Signs Temp Pulse Pulse Resp BP BP Pulse Ox 11/18/20 12:31 65 16 135/77 94 L 11/18/20 07:00 97.6 F 53 L 18 164/79 95 11/18/20 02:00 98.2 F 55 L 16 133/57 11/17/20 21:26 97.9 F 71 18 154/84 96 11/17/20 20:41 74 16 120/76 94 L 11/17/20 17:56 98.3 F 95 18 149/69 94 L Intake and Output 11/17/20 11/18/20 11/18/20 22:59 06:59 14:59 Other: Voiding Method Toilet # Voids 1 Weight 122.47 kg Results 11/17/20 18:17 11/18/20 10:38 Coagulation 11/17/20 11/18/20 Range/Units 18:17 10:38 PT 28.2 H 26.3 H (9.0-12.0) sec APTT 35.7 H (22.0-30.0) sec CBC 11/17/20 Range/Units 18:17 WBC 5.1 (3.8-10.6) k/uL RBC 4.72 (3.80-5.40) m/uL Hgb 14.6 (11.4-16.0) gm/dL Hct 43.7 (34.0-46.0) % Plt Count 214 (150-450) k/uL Comprehensive Metabolic Panel 11/17/20 Range/Units 18:17 Sodium 140 (137-145) mmol/L Potassium 3.6 (3.5-5.1) mmol/L Chloride 106 (98-107) mmol/L Carbon Dioxide 28 (22-30) mmol/L BUN 21 H (7-17) mg/dL Creatinine 0.68 (0.52-1.04) mg/dL Glucose 177 H (74-99) mg/dL Calcium 9.6 (8.4-10.2) mg/dL Current Medications Generic Name Dose Route Start Last Admin Trade Name Sumanth PRN Reason Stop Dose Admin Amlodipine Besylate 2.5 mg 11/18/20 10:30 Amlodipine 2.5 Mg Tab PO DAILY [facility] Aspirin 81 mg 11/18/20 10:30 Aspirin 81 Mg PO DAILY [facility] Atorvastatin Calcium 40 mg 11/18/20 21:00 Atorvastatin 40 Mg Tab PO HS [facility] Gabapentin 100 mg 11/18/20 21:00 Gabapentin 100 Mg Cap PO HS [facility] Sodium Chloride 1,000 mls @ 20 mls/hr 11/17/20 20:30 11/18/20 04:07 Saline 0.9% IV Not Given .Q24H [facility] Insulin Aspart 0 unit 11/18/20 12:30 Insulin Aspart (Novolog) 100 Unit/Ml Vial SQ ACHS [facility] Protocol Levothyroxine Sodium 88 mcg 11/18/20 10:30 Levothyroxine 88 [place] [address]30 [facility] Lisinopril 2.5 mg 11/18/20 10:30 Lisinopril 2.5 Mg Tab PO DAILY [facility] Magnesium Oxide 400 mg 11/18/20 21:00 Magnesium Oxide 400 Mg Tab PO BID [facility] Miscellaneous Information 0 each 11/18/20 10:34 Warfarin Per Pharmacy MISCELLANE DIRECTED PRN INR Multivitamins 1 each 11/19/20 09:00 Multivitamins, Thera 1 Each Tab PO DAILY [facility] Naloxone HCl 0.2 mg 11/17/20 20:23 Naloxone 0.4 Mg/Ml 1 Ml Vial IV Q2M PRN Opioid Reversal Warfarin Sodium 5 mg 11/18/20 18:00 Warfarin 5 Mg Tab PO [id number] [facility] Protocol Warfarin Sodium 7.5 mg 11/19/20 18:00 Warfarin 7.5 Mg Tab PO [id number] [facility] Protocol Intake and Output 11/17/20 11/18/20 11/18/20 22:59 06:59 14:59 Other: Voiding Method Toilet # Voids 1 Weight 122.47 kg 11/17/20 18:17 11/17/20 18:17
--- NOTE | 2020-11-18 16:03 | XR ---
EXAMINATION TYPE: XR chest 2V DATE OF EXAM: 11/18/2020 COMPARISON: NONE HISTORY: Chest pain TECHNIQUE: Frontal and lateral views of the chest are obtained. FINDINGS: There is no focal air space opacity, pleural effusion, or pneumothorax seen. The cardiac silhouette size is within normal limits. IMPRESSION: No acute cardiopulmonary process.
[2020-11-18] MEDS: GABAPENTIN 100 MG CAP PO SCH ×2 (16:25→21:07)
[2020-11-18 17:37] LABS: Glucose,Whole Blood 91 mg/dL (75-99)
[2020-11-18] MEDS ORDERED: WARFARIN 5 MG TAB PO SCH (18:00)
[2020-11-18 20:06] LABS: Glucose,Whole Blood 110 mg/dL (75-99)
[2020-11-18 20:14] LABS: Hemoglobin A1C 6.1 % (4.0-6.0)
[2020-11-18] MEDS ORDERED: ATORVASTATIN 40 MG TAB PO SCH (21:00)
[2020-11-18] MEDS ORDERED: GABAPENTIN 100 MG CAP PO SCH (21:00)
[2020-11-18] MEDS: MAGNESIUM OXIDE 400 MG TAB PO SCH (21:07)
[2020-11-18] MEDS ORDERED: HYDROcodone/APAP 5-325MG 1 EACH TAB PO PRN (23:03)
[2020-11-18 23:56] LABS: Chol/HDL Ratio 2.42; Cholesterol 174 mg/dL (0-200)
[2020-11-19 00:55] LABS: Folate, Serum >24.0 ng/mL
[2020-11-19] MEDS: LEVOTHYROXINE 88 MCG TAB PO SCH (06:24)
[2020-11-19 06:26] LABS: INR 2.3 (<1.2); Prothrombin Time 22.2 sec (9.0-12.0)
[2020-11-19 07:29] LABS: Glucose,Whole Blood 89 mg/dL (75-99)
[2020-11-19] MEDS: ASPIRIN 81 MG PO SCH (07:39)
[2020-11-19] MEDS: MAGNESIUM OXIDE 400 MG TAB PO SCH (07:39)
[2020-11-19] MEDS: GABAPENTIN 100 MG CAP PO SCH ×2 (07:39→16:35)
[2020-11-19] MEDS: amLODIPine 2.5 MG TAB PO SCH (07:39)
[2020-11-19] MEDS: INSULIN ASPART (NovoLOG) 100 UNIT/ML VIAL SQ SCH ×2 (07:41→12:59)
[2020-11-19 08:04] VITALS: RESP 17
[2020-11-19] MEDS ORDERED: MULTIVITAMINS, THERA 1 EACH TAB PO SCH (09:00)
--- NOTE | 2020-11-19 09:12 | P.PN ---
Subjective Progress Note Date: 11/19/20 The patient seen at bedside and she stated that she has no further appears degenerative over the left side of the face or the entire left upper extremity. She stated that her paresthesias resolved but continues to have this redness of both eyes. She denies of any neurological problems. Denies of any new weakness, numbness, difficulty getting her words out, difficulty swallowing. She denies of any headache. She has been afebrile during this hospital admission and normal white blood cell. Objective - Vital Signs Vital signs: Vital Signs Temp 97.6 F 11/19/20 07:00 Pulse 51 L 11/19/20 08:00 Resp 17 11/19/20 08:00 BP 126/74 11/19/20 07:00 Pulse Ox 96 11/19/20 07:00 Intake & Output 11/18/20 11/19/20 11/19/20 18:59 06:59 18:59 Intake Total 222 Balance 222 Intake: Oral 222 Other: Voiding Method Toilet Toilet # Voids 2 2 - Exam GENERAL: The patient is lying in bed and and not in acute distress. NEUROLOGICAL: Higher mental function: The patient is awake, alert, oriented to self, place and time. Patient is following commands. No aphasia and no neglect. Cranial nerves: The pupils are round, equal and reactive to light and accommodation. She has erythema of both eyes (scleral portion). Visual case are full to confrontation throughout. Extraocular movement is intact no nystagmus is noted. Facial sensation is normal to touch throughout. The facial strength is normal throughout. Hearing is normal bilaterally to hand rub. Tongue is midline and moved [id number] without any difficulty. No dysarthria is noted. Shoulder shrug is normal bilaterally. Motor: Gait is some antalgic and uses cane (baseline). The strength is 5 over 5 throughout. Has Lymphedema of bilateral lower extremities. Normal tone and bulk. Cerebellum: Normal finger to nose heel to lima bilaterally. Sensation: Sensation is normal to touch throughout. Reflexes (right/left): 2+ throughout except ankles are 1+ bilaterally. Plantars are downgoing bilaterally. WORK-UP: CT of the head is reported as no acute process. CT angiography of the head and neck was reported as no abnormality is seen. HbA1c: 6.1 (slightly above normal), Vitamin B12: 683 (normal), serum folate >24 (normal), and TSH level: 0.800 (normal). Lipid panel is struggled*1:15, cholesterol 174, LDL 79, HDL 72. - Labs CBC & Chem 7: 11/17/20 18:17 11/18/20 10:38 Labs: Abnormal Lab Results - Last 24 Hours (Table) 11/18/20 11/18/20 11/18/20 Range/Units 10:38 10:38 13:27 PT 26.3 H (9.0-12.0) sec INR 2.7 H (<1.2) Carbon Dioxide 32 H (22-30) mmol/L Glucose 134 H (74-99) mg/dL POC Glucose (mg/dL) (75-99) mg/dL Hemoglobin A1c (4.0-6.0) % HDL Cholesterol 72.0 H (40.0-60.0) mg/dL 11/18/20 11/18/20 11/19/20 Range/Units 13:27 20:00 05:23 PT 22.2 H (9.0-12.0) sec INR 2.3 H (<1.2) Carbon Dioxide (22-30) mmol/L Glucose (74-99) mg/dL POC Glucose (mg/dL) 110 H (75-99) mg/dL Hemoglobin A1c 6.1 H (4.0-6.0) % HDL Cholesterol (40.0-60.0) mg/dL Assessment and Plan Assessment: * Transient Left facial paresthesia (V2 distribution) and entire left upper extremity since 11/17. Unknown exact cause. Rule out stroke vs intracranial lesion. * Bilateral sclera erythema since had cataract initially on the right and now both --progressively worsening per patient and blurry vision but denies diplopia (for past 1-2 months) * Atrial fibrillation on Coumadin (therapeutic INR) * Hypertension * Hyperlipidemia * Hypothyroidism * History of DVT Plan: * Pending MRI of the brain and the cervical spine to rule out stroke versus cervical radiculopathy (cervical radiculopathy is unlikely as cause of this). * On her home medication of Coumadin as well as aspirin 81 mg daily. The patient was also started on her home dose of Lipitor 40 mg daily at bedtime for secondary stroke prophylaxis. I will not modify her medication until we get her MRI imagines results. * Pending Vitamin B6 * PT and OT are consulted. * Will hold off on repat 2D echo since had recent one at her [facility]. * Every 4 hours neuro checks * Increased Gabapentin 100mg qhs to 100mg 1 tab tid on 11/18 and her symptoms has resolved. * On continuous cardiac monitoring * Cardiology is on board. * Ophthamology is consulted and is pending to be seen. * We'll defer the rest of medical management to the primary team. * Upon discharge, the patient needs to follow-up with a neurologist within 1-2 weeks as outpatient. The plan is discussed with the patient's nurse. The patient stated she wants to go home after MRI. I notified her if MRI is negative she is clear from neurological standpoint. UPDATE: MR the brain is reported as cerebral atrophy. White matter signal changes in both cerebral hemispheric could relate to some minimal microvascular ischemia. Minimal demyelinating disease not entirely excluded. While MRI of the cervical was reported as moderately severe spinal stenosis at C3-C4. Previous surgery. No fractures seen of the cervical spine. I attempted to review the MRI the brain and the cervical but there is no images uploaded and only a report that. The patient the notified the nurse that she follows up with orthopedic team (Dr. Quiroz) as outpatient regarding her neck pain and does not want any surgical intervention or Orthopedic consultation as inpatient and wants to defer it as outpatient. She is clear from neurological perspective. Dennis Perla M.D. Neuro-hospitalist Time with Patient: Less than 30
[2020-11-19] MEDS ORDERED: PROPARACAINE 0.5% OPHTH DROPS 15 ML BTL BOTH EYES STA (10:26)
--- NOTE | 2020-11-19 11:45 | P.PN ---
Subjective Progress Note Date: 11/19/20 Present 80-year-old female patient who follows in the office with Dr. Briscoe. She has a past medical history of hypertension, hyperlipidemia, CAD with prior stenting of the mid RCA in January 2019, paroxysmal atrial fibrillation, status post ablation, anticoagulated on warfarin, known severe aortic stenosis. She presented to the emergency department with complaints of left-sided facial, shoulder and arm numbness. This is since resolved. She is being evaluated by neurology. She is scheduled for an MRI today. We were asked to the patient in consultation for complaints of chest discomfort. The discomfort was a burning type discomfort that occurred after she went yesterday. She felt that was s imilar to what she experienced with her heartburn that she is gets after eating at times. She's had no further complaints of chest discomfort. She does have known severe aortic stenosis and has been recommended to pursue intervention. She was offered workup to start soon however she wants to wait that she is going to [place] in January to stay with her daughter and will pursue follow-up there. She has no family available for support here. On examination patient up and about in the room with no current complaints. She does complain of some chronic lower extremity edema that is unchanged. She complains of some mild dyspnea on exertion that is unchanged. She is not very active but her activity level has been stable. She's had no further complaints of chest discomfort. Objective - Vital Signs Vital signs: Vital Signs Temp 97.6 F 11/19/20 07:00 Pulse 51 L 11/19/20 08:00 Resp 17 11/19/20 08:00 BP 126/74 11/19/20 07:00 Pulse Ox 96 11/19/20 07:00 Intake & Output 11/18/20 11/19/20 11/19/20 18:59 06:59 18:59 Intake Total 222 236 Balance 222 236 Intake: Oral 222 236 Other: Voiding Method Toilet Toilet # Voids 2 2 - Exam PHYSICAL EXAMINATION: HEENT: Head is atraumatic, normocephalic. Pupils equal, round. Neck is supple. There is no elevated jugular venous pressure. HEART EXAMINATION: Heart sounds regular, S1 and S2 with a harsh systolic ejection murmur at the base with radiation to the neck. CHEST EXAMINATION: Lungs are clear to auscultation. No chest wall tenderness is noted on palpation or with deep breathing. ABDOMEN: Soft, nontender. Bowel sounds are heard. No organomegaly noted. EXTREMITIES: 2+ peripheral pulses with evidence of trace peripheral edema and no calf tenderness noted. NEUROLOGIC patient is awake, alert and oriented x3. . - Labs CBC & Chem 7: 11/17/20 18:17 11/18/20 10:38 Labs: Abnormal Lab Results - Last 24 Hours (Table) 11/18/20 11/18/20 11/18/20 Range/Units 10:38 13:27 13:27 PT (9.0-12.0) sec INR (<1.2) Carbon Dioxide 32 H (22-30) mmol/L Glucose 134 H (74-99) mg/dL POC Glucose (mg/dL) (75-99) mg/dL Hemoglobin A1c 6.1 H (4.0-6.0) % HDL Cholesterol 72.0 H (40.0-60.0) mg/dL 11/18/20 11/19/20 Range/Units 20:00 05:23 PT 22.2 H (9.0-12.0) sec INR 2.3 H (<1.2) Carbon Dioxide (22-30) mmol/L Glucose (74-99) mg/dL POC Glucose (mg/dL) 110 H (75-99) mg/dL Hemoglobin A1c (4.0-6.0) % HDL Cholesterol (40.0-60.0) mg/dL Assessment and Plan Assessment: #1 chest pain, atypical, EKG with no evidence of ischemia, troponin negative, likely secondary to GERD #2 left facial and upper extremity numbness, being evaluated by neurology, scheduled for MRI today #3 severe/critical aortic stenosis, patient awaiting workup for intervention until after she goes to [place] in January #4 paroxysmal atrial fibrillation, status post ablation, on Coumadin #5 CAD status post PCI to the mid RCA in 2019 in the setting of non-STEMI #6 hypertension #7 sinus bradycardia #8 dyslipidemia Plan: From corporate legal manager perspective medications were reviewed and we'll continue the same. No further cardiac workup is necessary at as an inpatient. Patient will follow-up in the office with Dr. Briscoe as an outpatient. INDUSTRIAL DESIGN ENGINEER note has been reviewed, I agree with a documented findings and plan of care. Patient was seen and examined.
--- NOTE | 2020-11-19 11:59 | P.CON ---
Consult Note - . Consult date: 11/19/20 Assessment/Plan:: Asked to see, STAT, a patient for red eyes. However, on arrival for consultation patient was undergoing MRI procedure. Therefore, patient was not seen. History has been gleaned from records and a discussion with patient's nurse. She ind icated that the patient has been experiencing conjunctival injection with occasional discharge and mild discomfort on awakening. Vision has been intermittently blurry as well. Dr. Kern has been addressing the issue for the last few weeks. Some medication has been used, however, it is unknown as to what medication may have been applied. Patient's nurse indicated the patient recalled her cataract surgery was in July and then in August for each of the eyes. There are no known other eye problems by current history. PE - not performed - patient unavailable A: Dry Eye (possible KCS) - Based solely on available history, the most likely diagnosis is dry eye which is affected by recent surgery, less than 3 months ago, age-related changes, gender, and environmental, e.g., seasonal allergy. P: recommend beginning preservative free tears consistently, several times daily, nighttime ointment while hospitalized and returning to Dr. Kern for assessment and treatment. If patient remains in house tomorrow, will attempt to obtain a more definitive diagnosis with physical examination.
[2020-11-19] MEDS ORDERED: ARTIFICIAL TEARS-HYPROMELLOSE DROPS 15 ML BTL BOTH EYES PRN (12:04)
[2020-11-19 12:48] LABS: Glucose,Whole Blood 73 mg/dL (75-99)
--- NOTE | 2020-11-19 15:20 | MR ---
EXAMINATION TYPE: MR brain/cspine wo/w DATE OF EXAM: 11/19/2020 COMPARISON: None HISTORY: pareshtesia. over left face and upper extremity CONTRAST: Standard multiplanar, multisequence MRI departmental protocol utilizing 12.5 mL intravenous Gadavist gadolinium contrast. Multiplanar multiecho imaging of the brain and cervical spine without and with IV contrast. There is diffuse cerebral atrophy. There is no mass effect nor midline shift. Diffusion images show n o evidence of an acute infarct. There is minimal linear increased signal adjacent to the lateral vent ricles on the T2 and FLAIR images. There are a few scattered areas of periventricular white matter in creased signal that measure up to 4 mm. Total number is approximately 5. The brainstem is intact. The corpus callosum is intact. Sella turcica is intact. The contrast images show no pathologic enhancement. There is normal enhancement of the venous sinuses . The cervical vertebra have normal alignment. There is previous fusion surgery at C4-5 and C5-6. There is moderate narrowing of the spinal canal at C3-4 with posterior disc herniation and facet arthropat hy. Spinal canal measures 4 mm and there is flattening of the cervical spinal cord. I do not see sign ificant increased signal in the cord on the T2 images. There is no evidence of a spinal cord mass. Th ere is no pathologic enhancement of the cervical spine. There is C6-7 and C7-T1 small posterior disc herniation. There is not a significant impingement on the spinal canal. Canal measures 7 mm at C7-T1 and 8 mm at C6-7. There is no compression fracture. IMPRESSION: Cerebral atrophy. White matter signal changes in both cerebral hemispheres could relate to some minim al microvascular ischemia. Minimal demyelinating disease not entirely excluded. There is moderately severe spinal stenosis at C3-4. Previous surgery. No fracture seen of the cervica l spine.
[2020-11-19 15:24] VITALS: BP 129/70; PULSE 69; TEMP 97.4
[2020-11-19] MEDS ORDERED: WARFARIN 7.5 MG TAB PO SCH (18:00)
[2020-11-19] MEDS ORDERED: ARTIFICIAL TEARS OINTMENT 3.5 GM TUBE BOTH EYES SCH (21:00)
--- NOTE | 2020-11-20 11:30 | P.DS ---
Providers Date of admission: 11/17/20 20:24 Expected date of discharge: 11/19/20 Attending physician: Adrien Ross Consults: 11/17/20 20:24 Consult Physician Routine Consulting Provider: Dennis Perla Consult Reason/Comments: left sided paresthesias, cva? Do you want consulting provider notified?: Yes 11/18/20 12:01 Consult Physician Routine Consulting Provider: Fantasma Briscoe Consult Reason/Comments: chest pressure Do you want consulting provider notified?: Yes 11/18/20 16:24 Consult Physician Stat Consulting Provider: Joe Gleason Consult Reason/Comments: increased redness post cataract surgery Do you want consulting provider notified?: Yes Primary care physician: Julieth Triana [facility] Course: Chief Complaint: Chest pain, numbness History of presenting complaint: This is a pleasant 80-year-old patient of Dr. Triana. Chronic stable medical conditions include atrial fibrillation, GERD, hypertension, hyperlipidemia, chronic kidney disease, obstructive sleep apnea, uses CPAP. Coronary artery disease with a stent in January 2019. About 2 AM patient woke up with feeling of numbness of the left cheek left arm left chest. [place] like a zapping sensation. Also felt some discomfort in the left arm. Also had some heartburn. She gets occasionally. Also noticed some chest tightness. Symptoms present intermittently. Patient has been lifting some heavy boxes that she is moving in January to [place] with her daughter since her sister were used to live with her diet. Weeks ago. Patient normally uses a cane to get about. Does feel a bit tired. No dizziness no lightheadedness. No visual or swallowing symptoms. Computed tomography scan of the brain, CT angiogram of the brain. Unremarkable. MRI of the brain: Cerebral atrophy. White matter signal changes in both cerebral hemispheres. Moderate severe spinal stenosis C3-C4. With prior surgery. She has known severe aortic stenosis. She has been offered to have intervention for her aortic stenosis but she was to wait until she moves to [place] in January to move in with her daughter. I did explain the importance of this. Symptoms have improved. She does follow with Dr. Fantasma Briscoe from cardiology. Possible angina from aortic stenosis. TIA. Patient was told of the meantime to take it easy and not except herself excessively as she has been doing with packing. Discussion and discharge planning more than 35 minutes Consultation: Dr. Sotelo from cardiology Dr. Perla from neurology Past medical history to include: Atrial fibrillation, GERD, DVT, hypertension, hyperlipidemia, renal disease, obstructive sleep apnea uses CPAP, appetite, kidney stones, coronary ablation, coronary artery disease with stent, Social history: Patient stopped smoking in 1991. Lives alone. Does use a cane. No alcohol Family history: Reviewed, noncontributory to presentation Physical examination: VITAL SIGNS: 97.4, 69, 17, 1 29 x 70, 98% room air GENERAL:, sitting of the edges of bed, awake. EYES: Pupils equal. Conjunctiva normal. HEENT: External appearance of nose and ears normal, oral cavity grossly normal. NECK: JVD not raised; masses not palpable. HEART: First and second heart sounds are normal; no edema. LUNGS: Respiratory rate normal; clear to auscultation. ABDOMEN: Soft, nontender, liver spleen not palpable, no masses palpable. PSYCH: Alert and oriented x3; mood and affect normal. MUSCULAR skeletal: Evidence of OA. NEUROLOGICAL: Cranial nerves grossly intact; no facial asymmetry, power and sensation grossly intact. INVESTIGATIONS, reviewed in the clinical context: November 19: INR 2.3 MRI brain: Cerebral atrophy. Nonspecific finding. WBC 5.1 hemoglobin 14.6 platelets 214 INR 2.7 potassium 4.2 creatinine 0.66 Troponin I less than 0.012 EKG tracing personally reviewed by me-normal sinus rhythm, possible ST segment depression in inferior leads Computed tomography scan of the brain: Negative Computed tomography angiogram the brain: Negative Assessment and plan: -Possible TIA Continue aspirin. Coumadin. Lipitor. -Possible angina from severe aortic stenosis, with activity Follow-up with Dr. Fantasma Briscoe from cardiology -Coronary artery disease with stent, or 2 years ago Amlodipine. Lipitor. Coumadin. Aspirin -Paroxysmal atrial fibrillation. Currently in sinus rhythm Coumadin -Essential hypertension Amlodipine -Cervical spine stenosis at C3-C4 -Primary osteoarthritis multiple joints bilateral Use pain medications as needed -Hypothyroid Synthroid -Morbid obesity BMI 47.8 Weight loss measures and follow with PCP -Chronic gait dysfunction uses a cane at the baseline Fall precautions Disposition: Home Patient Condition at Discharge: Fair Plan - Discharge Summary Discharge Rx Participant: Yes New Discharge Prescriptions: New Artificial Tears-Hypromellose [Artificial Tear Drops] 1 drops BOTH EYES QID PRN #1 bottle PRN Reason: Dry Eye(S) Artificial Tears Ointment [Lubrifresh Pm Ointment] 1 applic BOTH EYES HS #1 applic Continue Multivitamins, Thera [Multivitamin (formulary)] 1 tab PO DAILY Magnesium Oxide [Mag-Ox] 250 mg PO BID Aspirin 81 mg PO DAILY Levothyroxine Sodium [Synthroid] 88 mcg PO DAILY Diclofenac Sodium [Voltaren Arthritis Pain 1% Gel] 2 gm TOPICAL DAILY PRN PRN Reason: Pain Gabapentin [Neurontin] 100 mg PO HS Atorvastatin [Lipitor] 40 mg PO HS lisinopriL [Zestril] 2.5 mg PO DAILY amLODIPine [Norvasc] 2.5 mg PO DAILY Warfarin [Coumadin] 5 mg PO SUMOTUTHFR Acetaminophen [Tylenol Arthritis] 1,300 mg PO DAILY PRN PRN Reason: Pain Clotrimazole Cream [Lotrimin Cream] 1 applic TOPICAL DAILY PRN PRN Reason: FUNGAL INFECTION Warfarin [Coumadin] 7.5 mg PO WESA Discontinued Furosemide [Lasix] 20 mg PO DAILY PRN PRN Reason: Edema No Action Cinnamon 250 mg PO BID Discharge Medication List Aspirin 81 mg PO DAILY 02/24/19 [History] Magnesium Oxide [Mag-Ox] 250 mg PO BID 02/24/19 [History] Multivitamins, Thera [Multivitamin (formulary)] 1 tab PO DAILY 02/24/19 [History] Levothyroxine Sodium [Synthroid] 88 mcg PO DAILY 02/26/19 [History] Acetaminophen [Tylenol Arthritis] 1,300 mg PO DAILY PRN 07/21/20 [History] Atorvastatin [Lipitor] 40 mg PO HS 07/21/20 [History] Cinnamon 250 mg PO BID 07/21/20 [History] Diclofenac Sodium [Voltaren Arthritis Pain 1% Gel] 2 gm TOPICAL DAILY PRN 07/21/20 [History] Gabapentin [Neurontin] 100 mg PO HS 07/21/20 [History] Warfarin [Coumadin] 5 mg PO SUMOTUTHFR 07/21/20 [History] Clotrimazole Cream [Lotrimin Cream] 1 applic TOPICAL DAILY PRN 11/17/20 [History] Warfarin [Coumadin] 7.5 mg PO WESA 11/17/20 [History] lisinopriL [Zestril] 2.5 mg PO DAILY 11/17/20 [History] amLODIPine [Norvasc] 2.5 mg PO DAILY 11/18/20 [History] Artificial Tears Ointment [Lubrifresh Pm Ointment] 1 applic BOTH EYES HS #1 applic 11/19/20 [Rx] Artificial Tears-Hypromellose [Artificial Tear Drops] 1 drops BOTH EYES QID PRN #1 bottle 11/19/20 [Rx] Follow up Appointment(s)/Referral(s): 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 ) Nir Easton MD [Medical Doctor] - 10 Days Julieth Triana MD [Primary Care Provider] - 1-2 days Discharge Disposition: HOME SELF-CARE
--- NOTE | 2020-11-23 09:12 | P.HPIM ---
History of Present Illness H&P Date: 11/18/20 Chief Complaint: Chest pain, numbness History of presenting complaint: This is a pleasant 80-year-old patient of Dr. Triana. Chronic stable medical conditions include atrial fibrillation, GERD, hypertension, hyperlipidemia, chronic kidney disease, obstructive sleep apnea, uses CPAP. Coronary artery disease with a stent in January 2019. About 2 AM patient woke up with feeling of numbness of the left cheek left arm left chest. Bent like a zapping sensation. Also felt some discomfort in the left arm. Also had some heartburn. She gets occasionally. Also noticed some c hest tightness. Symptoms present intermittently. Patient has been lifting some heavy boxes that she is moving in January to [place] with her daughter since her sister were used to live with her diet. Weeks ago. Patient normally uses a cane to get about. Does feel a bit tired. No dizziness no lightheadedness. No visual or swallowing symptoms. Review of systems: GEN.: Tired EYES: None HEENT: None NECK: None RESPIRATORY: None CARDIOVASCULAR: None GASTROINTESTINAL: Occasional heartburn GENITOURINARY: None MUSCULOSKELETAL: Joint pains LYMPHATICS: None HEMATOLOGICAL: None PSYCHIATRY: None NEUROLOGICAL: As above Past medical history to include: Atrial fibrillation, GERD, DVT, hypertension, hyperlipidemia, renal disease, obstructive sleep apnea uses CPAP, appetite, kidney stones, coronary ablation, coronary artery disease with stent, Social history: Patient stopped smoking in 1991. Lives alone. Does use a cane. No alcohol Family history: Reviewed, noncontributory to presentation Physical examination: VITAL SIGNS: 97.6, 53, 18, 1 64 x 79, 95% on room air GENERAL: BMI is 47.8, sitting of the edges of bed, awake. EYES: Pupils equal. Conjunctiva normal. HEENT: External appearance of nose and ears normal, oral cavity grossly normal. NECK: JVD not raised; masses not palpable. HEART: First and second heart sounds are normal; no edema. LUNGS: Respiratory rate normal; clear to auscultation. ABDOMEN: Soft, nontender, liver spleen not palpable, no masses palpable. PSYCH: Alert and oriented x3; mood and affect normal. MUSCULAR skeletal: Evidence of OA. NEUROLOGICAL: Cranial nerves grossly intact; no facial asymmetry, power and sensation grossly intact. LYMPHATICS: No lymph nodes palpable in the axilla and neck INVESTIGATIONS, reviewed in the clinical context: WBC 5.1 hemoglobin 14.6 platelets 214 INR 2.7 potassium 4.2 creatinine 0.66 Troponin I less than 0.012 EKG tracing personally reviewed by me-normal sinus rhythm, possible ST segment depression in inferior leads Computed tomography scan of the brain: Negative Computed tomography angiogram the brain: Negative Assessment and plan: -Patient presents with numbness tingling on the left side of the face left chest wall left arm (2:00 this morning. This could be due to TIA Neuro checks. Neurology consultation. Amelia of the spine in the brain. -Some chest tightness with some heartburn. Rule out unstable angina Initial troponin negative. Consult cardiology. -Coronary artery disease with stent, or 2 years ago Albuterol. In. Lipitor. Coumadin. Aspirin -Paroxysmal atrial fibrillation. Currently in sinus rhythm Coumadin -Essential hypertension Amlodipine -Primary osteoarthritis multiple joints bilateral Use pain medications as needed -Hypothyroid Synthroid -Morbid obesity BMI 47.8 Weight loss measures and follow with PCP -Chronic gait dysfunction uses a cane at the baseline Fall precautions Cardiology and neurology consultation. MRI of the brain. Serial troponins. Home medications resumed. Aspirin. Coumadin. Past Medical History Past Medical History: Atrial Fibrillation, Deep Vein Thrombosis (DVT), GERD/Reflux, Hyperlipidemia, Hypertension, Myocardial Infarction (PA), Renal Disease, Sleep Apnea/CPAP/BIPAP, Thyroid Disorder, Vascular Disorder Additional Past Medical History / Comment(s): kidney stones, cpap, dizziness Last Myocardial Infarction Date:: 01/2019 History of Any Multi-Drug Resistant Organisms: None Reported Past Surgical History: Cardiac Ablation, Cholecystectomy, Heart Catheterization With Stent, Hysterectomy Additional Past Surgical History / Comment(s): urinary stent placed 02/23/19 Past Anesthesia/Blood Transfusion Reactions: No Reported Reaction, Motion Sickness Date of Last Stent Placement:: 01/2019 Past Psychological History: No Psychological Hx Reported Smoking Status: Former smoker Past Alcohol Use History: None Reported Additional Past Alcohol Use History / Comment(s): quit smoking 1991 Past Drug Use History: None Reported Medications and Allergies Home Medications Medication Instructions Recorded Confirmed Type Aspirin 81 mg PO DAILY 02/24/19 11/17/20 History Furosemide [Lasix] 20 mg PO DAILY PRN 02/24/19 11/17/20 History Magnesium Oxide [Mag-Ox] 250 mg PO BID 02/24/19 11/17/20 History Multivitamins, Thera [Multivitamin 1 tab PO DAILY 02/24/19 11/17/20 History (formulary)] Levothyroxine Sodium [Synthroid] 88 mcg PO DAILY 02/26/19 11/17/20 History Acetaminophen [Tylenol Arthritis] 1,300 mg PO DAILY PRN 07/21/20 11/17/20 History Atorvastatin [Lipitor] 40 mg PO HS 07/21/20 11/17/20 History Cinnamon 250 mg PO BID 07/21/20 11/17/20 History Diclofenac Sodium [Voltaren 2 gm TOPICAL DAILY PRN 07/21/20 11/17/20 History Arthritis Pain 1% Gel] Gabapentin [Neurontin] 100 mg PO HS 07/21/20 11/17/20 History Warfarin [Coumadin] 5 mg PO SUMOTUTHFR 07/21/20 11/17/20 History Clotrimazole Cream [Lotrimin Cream] 1 applic TOPICAL DAILY PRN 11/17/20 11/17/20 History Warfarin [Coumadin] 7.5 mg PO WESA 11/17/20 11/17/20 History lisinopriL [Zestril] 2.5 mg PO DAILY 11/17/20 11/17/20 History amLODIPine [Norvasc] 2.5 mg PO DAILY 11/18/20 11/18/20 History Allergies Allergy/AdvReac Type Severity Reaction Status Date / Time codeine Allergy Nausea Verified 11/17/20 22:00 Latex, Natural Rubber Allergy Itching Verified 11/17/20 22:00 Penicillins Allergy Itching Verified 11/17/20 22:00 Physical Exam Vitals: Vital Signs Temp Pulse Pulse Resp BP BP Pulse Ox 11/18/20 07:00 97.6 F 53 L 18 164/79 95 11/18/20 02:00 98.2 F 55 L 16 133/57 11/17/20 21:26 97.9 F 71 18 154/84 96 11/17/20 20:41 74 16 120/76 94 L 11/17/20 17:56 98.3 F 95 18 149/69 94 L Intake and Output 11/17/20 11/18/20 11/18/20 22:59 06:59 14:59 Other: Voiding Method Toilet # Voids 1 Weight 122.47 kg Results CBC & Chem 7: 11/17/20 18:17 11/18/20 10:38 Labs: Abnormal Lab Results - Last 24 Hours (Table) 11/17/20 11/17/20 11/17/20 Range/Units 18:17 18:17 18:24 PT 28.2 H (9.0-12.0) sec INR 2.9 H (<1.2) APTT 35.7 H (22.0-30.0) sec BUN 21 H (7-17) mg/dL Glucose 177 H (74-99) mg/dL POC Glucose (mg/dL) 178 H (75-99) mg/dL
== END 2020-11-19 17:33 | disposition home or self-care (01) ==
LOC: EC 17:47 → 6NMEDSUR 20:24
PROVIDERS: ADMIT Hospitalist; ATTEND Hospitalist
DX: R20.2 Paresthesia of skin (principal); R07.89 Other chest pain; I35.0 Nonrheumatic aortic (valve) stenosis; I12.9 Hypertensive chronic kidney disease with stage 1 through stage 4 chronic kidney disease, or unspecified chronic kidney disease; N18.9 Chronic kidney disease, unspecified; I25.10 Atherosclerotic heart disease of native coronary artery without angina pectoris; I44.0 Atrioventricular block, first degree; M48.02 Spinal stenosis, cervical region; R20.0 Anesthesia of skin; E78.5 Hyperlipidemia, unspecified; I25.2 Old myocardial infarction; I48.0 Paroxysmal atrial fibrillation; G47.33 Obstructive sleep apnea (adult) (pediatric); K21.9 Gastro-esophageal reflux disease without esophagitis; M15.9 Polyosteoarthritis, unspecified; E03.9 Hypothyroidism, unspecified; R00.1 Bradycardia, unspecified; R26.9 Unspecified abnormalities of gait and mobility; E66.01 Morbid (severe) obesity due to excess calories; Z68.42 Body mass index [BMI] 45.0-49.9, adult; G89.29 Other chronic pain; M54.5 Low back pain; R60.0 Localized edema; R06.09 Other forms of dyspnea; H04.123 Dry eye syndrome of bilateral lacrimal glands; H53.8 Other visual disturbances; Z79.82 Long term (current) use of aspirin; Z79.890 Hormone replacement therapy; Z79.01 Long term (current) use of anticoagulants; Z79.899 Other long term (current) drug therapy; Z88.5 Allergy status to narcotic agent; Z88.0 Allergy status to penicillin; Z91.040 Latex allergy status; Z87.442 Personal history of urinary calculi; Z90.49 Acquired absence of other specified parts of digestive tract; Z90.710 Acquired absence of both cervix and uterus; Z95.5 Presence of coronary angioplasty implant and graft; Z98.890 Other specified postprocedural states; Z87.891 Personal history of nicotine dependence; Z86.718 Personal history of other venous thrombosis and embolism; Z98.42 Cataract extraction status, left eye; Z98.41 Cataract extraction status, right eye
CPT/HCPCS: 93005 ×2; 99285; 36415; 84207; 82747; 80061; 80048 ×2; 84443; 82607; 82746; 83735; 84484; 85025; 85610 ×3; 85730; 83036; 71046; 70496; 70450; 70498; 70553; 72156; G0378 ×3; A9585; Q9967

== ENCOUNTER → 2020-11-30 | Outpatient (CLI) | payer MEDICARE ==
[2020-11-30 11:14] LABS: HCT 45.3 % (34.0-46.0); HGB 14.9 gm/dL (11.4-16.0); MCH 31.1 pg (25.0-35.0); MCHC 32.9 g/dL (31.0-37.0); MCV 94.4 fL (80.0-100.0); Mean Platelet Volume 7.1; Platelet Count 225 k/uL (150-450); RDW 13.3 % (11.5-15.5); WBC 4.2 k/uL (3.8-10.6)
[2020-11-30 12:26] LABS: African American GFR (CKD) >90 (>60 ml/min/1.73 sqM); Anion Gap 7 mmol/L; Blood Urea Nitrogen 21 mg/dL (7-17); Carbon Dioxide 28 mmol/L (22-30); Chloride 104 mmol/L (98-107); Non-African American GFR(CKD) 79 (>60 ml/min/1.73 sqM); Potassium 4.2 mmol/L (3.5-5.1); Sodium 139 mmol/L (137-145)
== END | disposition home or self-care (01) ==
LOC: LABPAT 10:06
PROVIDERS: ATTEND Internal Medicine
DX: Z01.812 Encounter for preprocedural laboratory examination (principal); I35.0 Nonrheumatic aortic (valve) stenosis
CPT/HCPCS: 36415; 80051; 82565; 84520; 85027

== ENCOUNTER → 2020-12-05 | Day surgery (SDC) | payer MEDICARE ==
[2020-11-30 16:06] VITALS: BMI 49.4
[~2020-12-05] MED LIST changes: +ALPRAZolam 0.25 MG TAB PO PRN; +ALPRAZolam 0.5 MG TAB PO PRN; +ASPIRIN 325 MG TAB PO ONE; +HEPARIN SODIUM,PORCINE 10,000 UNIT in SODIUM CHLORIDE 0.9% 1,000 ML IRRIGATION PRN; +HEPARIN SODIUM,PORCINE 2,500 UNIT in SODIUM CHLORIDE 0.9% 250 ML IRRIGATION PRN; +NITROGLYCERIN SL TABS 0.4 MG TAB SUBLINGUAL PRN; +SODIUM CHLORIDE 0.9% 1,000 ML IV ONE; -SODIUM CHLORIDE 0.9% 1,000 ML IV SCH; +SODIUM CHLORIDE 0.9% 1,000 ML in EMPTY BAG 1 BAG IV ONE
[2020-12-05 08:51] VITALS: BP 147/65; PULSE 75; RESP 16; TEMP 98.8
[2020-12-05 09:14] LABS: INR 2.2 (<1.2)
[2020-12-05 09:15] LABS: Prothrombin Time 21.9 sec (9.0-12.0)
== END ==
LOC: CATHCVL 08:15
PROVIDERS: ATTEND Internal Medicine
DX: I10 Essential (primary) hypertension (principal); I44.30 Unspecified atrioventricular block; Z79.01 Long term (current) use of anticoagulants; Z79.899 Other long term (current) drug therapy; Z88.5 Allergy status to narcotic agent; Z88.0 Allergy status to penicillin; Z53.9 Procedure and treatment not carried out, unspecified reason
CPT/HCPCS: 85610

== ENCOUNTER 2020-12-09 08:17 | Day surgery (SDC) | payer MEDICARE ==
[2020-12-07 12:08] VITALS: BMI 49.7
[~2020-12-09 08:17] MED LIST changes: -ASPIRIN 325 MG TAB PO ONE; +ASPIRIN 325 MG TAB PO STA; +ATORVASTATIN 80 MG TAB PO STA; -HEPARIN SODIUM,PORCINE 10,000 UNIT in SODIUM CHLORIDE 0.9% 1,000 ML IRRIGATION PRN; -HEPARIN SODIUM,PORCINE 2,500 UNIT in SODIUM CHLORIDE 0.9% 250 ML IRRIGATION PRN; -SODIUM CHLORIDE 0.9% 1,000 ML IV ONE
[2020-12-09] MEDS ORDERED: SODIUM CHLORIDE 0.9% 1,000 ML IV ONE (08:27)
[2020-12-09 09:10] LABS: Prothrombin Time 10.4 sec (9.0-12.0)
[2020-12-09] MEDS ORDERED: fentaNYL (PF) 50 MCG/ML 2 ML AMP ONE (09:46)
[2020-12-09] MEDS ORDERED: VERAPAMIL 2.5 MG/ML 2 ML AMP ONE (09:51)
[2020-12-09] MEDS ORDERED: LIDOCAINE 1% INJ 10MG/ML (20 ML MDV) ONE (09:51)
[2020-12-09] MEDS: BENZOCAINE SPRAY 1 CAN MUCOUS MEM ONE ×2 (09:58→10:24)
[2020-12-09] MEDS: fentaNYL (PF) 50 MCG/ML 2 ML AMP IVP ONE ×2 (10:26→10:28)
[2020-12-09] MEDS ORDERED: MIDAZOLAM 2 MG/2 ML VIAL IVP ONE ×2 (10:26→10:29)
[2020-12-09] MEDS ORDERED: IV FLUID CONTINUATION 1,000 ML IV ONE (11:00)
[2020-12-09] MEDS ORDERED: LIDOCAINE 1% INJ 10MG/ML (20 ML MDV) SQ ONE (11:15)
[2020-12-09] MEDS ORDERED: VERAPAMIL SYRINGE (5 MG/10 ML) INTRAARTER ONE (11:18)
[2020-12-09] MEDS ORDERED: HEPARIN SODIUM 1,000 UN/ML (10ML VL) ONE (11:19)
[2020-12-09] MEDS ORDERED: HEPARIN SODIUM 1,000 UN/ML (10ML VL) IV ONE (11:20)
[2020-12-09] MEDS ORDERED: IOPAMIDOL-370 125ML BTL INJ ONE (11:48)
[2020-12-09] MEDS ORDERED: SODIUM CHLORIDE 0.9% 1,000 ML IV SCH (12:07)
[2020-12-09 15:26] VITALS: RESP 16
[2020-12-09 16:10] VITALS: BP 110/58; PULSE 81
--- NOTE | 2020-12-09 21:51 | P.TEE ---
Description of Procedure(s): Procedure performed: Transesophageal Echocardiogram with color flow doppler, pulsed wave doppler and continuous wave doppler, moderate conscious sedation Moderate conscious sedation: Moderate conscious sedation was supplied with direct supervision of myself using Versed and Fentanyl. Complications: none Indications: Severe History: Patient is a pleasant 80-year-old female with history of coronary artery disease status post stenting of the RCA, hypertension, obesity and severe aortic stenosis. She had most recent echo which showed ejection fraction 55% and severe aortic stenosis with a peak gradient of 70 mmHg and a mean gradient of 45-50 mmHg. Therefore SAUL and left heart catheterization was recommended. PROCEDURE: After the risks, benefits and alternatives of the above mentioned procedure was explained in detail with the patient, informed consent was obtained. Patient was brought to the lab in a fasting state. Patient was given IV Versed and Fentanyl for sedation. The throat was sprayed with Hurricane to anesthetize the throat. A lubricated Omni probe was then introduced into the esophagus and stomach and multiple views were obtained. 2D echo with color flow doppler, pulsed wave doppler and continuous wave doppler was utilized. Agitated saline bubbles were injected to assess for any intra-atrial shunt. The probe was then removed. Patient tolerated the procedure well. Patient was transferred to the post procedure area in stable and satisfactory condition. FINDINGS: 1. The aortic valve is tricuspid with calcified leaflets with decreased leaflet excursion. There is some discrepancy of aortic valve area with RYAN by planimetry of 1.2cm2 however peak Vmax 4.4m/s and mean gradient 41mmHg consistent with severe aortic stenosis. 2. The mitral valve appears be normal with mild regurgitation. 3. Tricuspid valve appears to be normal. 4. The interatrial septum is intact. No evidence of PFO. 5. Left atrial appendage is free of clot. 6. Left ventricular size and function appear to be normal with EF 55%
--- NOTE | 2020-12-09 22:04 | P.CARDCATH ---
Description of Procedure: PROCEDURES PERFORMED: [Left heart catheterization,] bilateral coronary angiography INDICATION: Severe HISTORY: Patient is a pleasant 80-year-old female with history of coronary artery disease status post stenting of the RCA, hypertension, obesity and severe aortic stenosis. She had most recent echo which showed ejection fraction 55% and severe aortic stenosis with a peak gradient of 70 mmHg and a mean gradient of 45-50 mmHg. Therefore SAUL and left heart catheterization was recommended. Patient had a SAUL performed earlier today which showed some mild discrepancy in RYAN by planimetry vs gradients. CONSENT:I have discussed the risks, benefits and alternative therapies for the above-mentioned procedure and for both sedation/analgesia as well as necessary blood product administration, if indicated, as they pertain to this patient. The patient has indicated understanding and acceptance of the risks and procedures discussed. PROCEDURE: After the risks, benefits and alternatives of the above mentioned procedure explained in detail with the patient, informed consent was obtained. Patient was taken to the catheterization lab and prepped and draped in usual fashion. 1% lidocaine was used to anesthetize the right radial artery. A 6- Marshallese sheath was placed in the right radial artery using modified Seldinger technique. Left coronary angiography was performed with a 5-Marshallese JL 3.5 catheter and right coronary angiography was performed with a 5-Marshallese JR5 catheter in various views. With the help of a 5Fr WR catheter and a 0.035 straight wire, the aortic valve was able to be crossed and pressure measurements were obtained. A pullback was performed. The right radial sheath was removed and a TR band was placed with hemostasis achieved. The patient tolerated the procedure well. Patient was transported back to the post catheterization holding area in stable condition. Conscious Sedation: Patient was monitored under the direct supervision of vision of myself for conscious sedation using Versed and fentanyl for a total duration of 40 minutes HEMODYNAMICS: Ao: 108/71 LV: 180/5, LVEDP 12mmHg Aortic gradient by pullback: peak to peak 70, mean gradient 50mmHg SELECTIVE CORONARY ARTERIOGRAPHY: LEFT MAIN: The left main is a large caliber vessel which trifurcates into the LAD and circumflex. There is 20% distal left main stenosis. LEFT ANTERIOR DESCENDING CORONARY ARTERY: LAD is a large caliber vessel which wraps around to the apex. There are mild luminal irregularities. RAMUS INTERMEDIUS: The ramus is a moderate caliber vessel with mild luminal irregularities. LEFT CIRCUMFLEX CORONARY ARTERY: Left circumflex is a moderate caliber vessel without significant stenosis. RIGHT CORONARY ARTERY: The right coronary artery is a large caliber vessel which gives off a PDA and PLV branch and is the dominant vessel. There is a patent RCA stent with mild luminal irregularities. FINAL IMPRESSION: 1. Mild CAD as described above with only mild luminal irregularities and patent RCA stent 2. Severe aortic stenosis with pullback across aortic valve with peak to peak of 70 and mean gradient of 50 mmHg PLAN: 1. Aggressive risk factor modification per most recent ACC/AHA guidelines. 2. Follow-up in the office in 1-[address] Briscoe.
== END 2020-12-09 16:29 | disposition home or self-care (01) ==
LOC: CATHCVL 08:17
PROVIDERS: ATTEND Internal Medicine
DX: I25.10 Atherosclerotic heart disease of native coronary artery without angina pectoris (principal); I35.0 Nonrheumatic aortic (valve) stenosis
CPT/HCPCS: 93458; 85610; C1769; C1894; J2250; J2001; J3010; J1644; Q9967

== ENCOUNTER → 2021-01-05 | Outpatient (CLI) | payer MEDICARE ==
[2021-01-05 08:40] LABS: INR 3.3 (<1.2); Partial Thromboplastin Time 40.8 sec (22.0-30.0)
[2021-01-05 09:01] LABS: Anion Gap 5 mmol/L; Blood Urea Nitrogen 21 mg/dL (7-17); Carbon Dioxide 29 mmol/L (22-30); Chloride 105 mmol/L (98-107); Glucose 104 mg/dL (74-99); Potassium 4.1 mmol/L (3.5-5.1); Sodium 139 mmol/L (137-145)
[2021-01-05 09:02] LABS: ALT 39 U/L (4-34); AST 51 U/L (14-36); African American GFR (CKD) >90 (>60 ml/min/1.73 sqM); Albumin 3.9 g/dL (3.5-5.0); Albumin/Globulin Ratio 1.4; Alkaline Phosphatase 106 U/L (38-126); Bilirubin,Unconjugated 0.6 mg/dL (0.0-1.1); Globulin 2.7 g/dL; Magnesium 2.2 mg/dL (1.6-2.3); Non-African American GFR(CKD) 81 (>60 ml/min/1.73 sqM); Total Bilirubin 0.7 mg/dL (0.2-1.3); Total Protein 6.6 g/dL (6.3-8.2)
--- NOTE | 2021-01-05 09:24 | US ---
EXAMINATION TYPE: US carotid duplex BILAT DATE OF EXAM: 01/05/2021 COMPARISON: CT angio head/neck November 17, 2020 CLINICAL HISTORY: R55 SYNCOPE. Syncope EXAM MEASUREMENTS: RIGHT: Peak Systolic Velocity (PSV) cm/sec ----- Right CCA: 56.0 ----- Right ICA: 82.6 ----- Right ECA: 79.1 ICA/CCA ratio: 1.5 RIGHT: End Diastole cm/sec ----- Right CCA: 14.7 ----- Right ICA: 26.7 ----- Right ECA: 4.5 LEFT: Peak Systolic Velocity (PSV) cm/sec ----- Left CCA: 66.9 ----- Left ICA: 68.6 ----- Left ECA: 80.0 ICA/CCA ratio: 1.0 LEFT: End Diastole cm/sec ----- Left CCA: 13.6 ----- Left ICA: 22.3 ----- Left ECA: 9.3 VERTEBRALS (direction of flow): Right Vertebral: Antegrade Left Vertebral: Antegrade Rhythm: Arrhythmia No significant stenosis seen Corresponding to recent CT mild peripheral plaque at bilateral carotid bulb level. Velocity measureme nts and ratios remain within normal limits. IMPRESSION: No hemodynamically significant stenosis identified in either internal carotid artery. Note is made of arrhythmia during real-time scanning, correlate clinically. Criteria for Assigning % of Stenosis / Diameter reduction (Estimation based on the indirect measurements of the internal carotid artery velocities (ICA PSV). 1. Normal (no stenosis)=ICA PSV < 125 cm/s: ratio < 2.0: ICA EDV<40 cm/s. 2. Less than 50% stenosis=ICA PSV < 125 cm/s: ratio < 2.0: ICA EDV<40 cm/s. 3. 50 to 69% stenosis=ICA PSV of 125 to 230 cm/s: ration 2.0 ? 4.0: ICA EDV 40-100 cm/s. 4. Greater than 70% stenosis to near occlusion= ICA PSV > 230 cm/s: ratio > 4.0: ICA EDV > 100 cm/s. 5. Near occlusion= ICA PSV velocities may be low or undetectable: variable ratio and ICA EDV. 6. Total occlusion=unable to detect flow.
[2021-01-05 09:57] LABS: Appearance,Urine Clear (Clear); Bilirubin,Urine Negative (Negative); Blood,Urine Negative (Negative); Color,Urine Yellow; Glucose,Urine (UA) Negative (Negative); Ketones,Urine Negative (Negative); Leukocyte Esterase,Urine Trace (Negative); Mucus,Urine Rare /hpf; Nitrite,Urine Negative (Negative); Protein,Urine Negative (Negative); RBC,Urine 1 /hpf (0-5); Specific Gravity,Urine 1.022 (1.001-1.035); Urobilinogen,Urine <2.0 mg/dL (<2.0); WBC,Urine 3 /hpf (0-5)
--- NOTE | 2021-01-05 11:04 | CT ---
EXAMINATION TYPE: CT TAVR Planning DATE OF EXAM: 01/05/2021 HISTORY: pre op TAVR valve procedure; nontraumatic aortic valve insufficiency CT DLP: 2775.9 mGycm Automated Exposure Control for Dose Reduction was Utilized. CONTRAST: CTA scan of the chest, abdomen and pelvis is performed with IV Contrast, patient injected with 125 mL of Isovue 370. COMPARISON: None. TECHNIQUE: Helical imaging obtained through the chest, abdomen and pelvis during arterial phase emanuel viki administration of radiographic contrast intravenously. Gated imaging performed. MIP images are cr eated on CT scanner and reviewed. FINDINGS: See report from [facility] regarding preprocedural planning CHEST: Lower Neck and Thyroid: No significant findings Lungs: Elevated left hemidiaphragm with mild left basilar linear scarring. There is 6 mm peripheral c alcified right upper lobe nodule or benign granuloma series 10 image 18. Central Airway: No significant findings Pleura: No significant findings Pulmonary Arteries: Enlarged main pulmonary artery, CT findings consistent with underlying pulmonary artery hypertension. Heart and Pericardium: Moderate to severe three-vessel coronary artery calcification should be correl ated with additional cardiac risk factors. Severe calcification at level of the aortic valve Lymph Nodes: Calcified right hilar lymph nodes. Mediastinum & Esophagus: No significant findings ABDOMEN/PELVIS: Please note arterial phase of the imaging limits detailed evaluation of the solid abdominal organs. Liver: No significant findings Spleen: No significant findings Kidneys: Are occasional simple appearing thin-walled cysts scattered throughout the left kidney Adrenal Glands: No significant findings Pancreas: No significant findings Gallbladder: Cholecystectomy clips Bowel and Mesentery: No significant findings for nonenhanced study. Lymph Nodes: No significant findings Urinary Bladder: No significant findings Pelvic Organs: Uterus surgically absent or markedly atrophic. Occasional scattered pelvic phlebolith. Other: Prominent superficial vessels in the bilateral groin region perhaps varicose veins. Moderate t o severe calcified plaque of the aorta extends into branch vessels. Moderate narrowing in both hip joints. [id number] multilevel spurring and disc space narrowin g throughout the thoracolumbar spine. Postsurgical change near cervicothoracic junction. IMPRESSION: Exam performed for surgical planning. Incidental findings as detailed above.
[2021-01-05 12:12] LABS: Basophils # (A) 0.03 X 10*3/uL (0.00-0.10); Basophils % (A) 0.9 %; Eosinophils # (A) 0.19 X 10*3/uL (0.04-0.35); Eosinophils % (A) 5.5 %; HCT 41.4 % (37.2-46.3); HGB 13.2 g/dL (12.0-15.0); Lymphocytes # (A) 1.08 X 10*3/uL (0.90-5.00); Lymphocytes % (A) 31.2 %; MCH 29.9 pg (27.0-32.0); MCHC 31.9 g/dL (32.0-37.0); MCV 93.9 fL (80.0-97.0); Mean Platelet Volume 9.5 fL (9.5-12.2); Monocytes # (A) 0.35 X 10*3/uL (0.20-1.00); Monocytes % (A) 10.1 %; Platelet Count 213 X 10*3/uL (140-440); RBC 4.41 X 10*6/uL (4.10-5.20); RDW 13.9 % (11.5-14.5); WBC 3.46 X 10*3/uL (4.50-10.00)
[2021-01-05 15:07] LABS: Hemoglobin A1C 5.7 % (4.0-6.0)
[2021-01-05 22:12] LABS: Chol/HDL Ratio 2.14; Cholesterol 156 mg/dL (0-200); LDL Cholesterol,Calculated 62.4 mg/dL (0.0-131.0)
== END | disposition home or self-care (01) ==
LOC: LABWHC1 07:46
PROVIDERS: ATTEND Thoracic Surgery (Cardiothoracic Vascular Surgery)
DX: Z01.812 Encounter for preprocedural laboratory examination (principal); I49.9 Cardiac arrhythmia, unspecified; I35.1 Nonrheumatic aortic (valve) insufficiency; N28.9 Disorder of kidney and ureter, unspecified; E87.8 Other disorders of electrolyte and fluid balance, not elsewhere classified; E78.5 Hyperlipidemia, unspecified; E07.9 Disorder of thyroid, unspecified; R55 Syncope and collapse; R58 Hemorrhage, not elsewhere classified; R35.0 Frequency of micturition; Z79.899 Other long term (current) drug therapy; E11.9 Type 2 diabetes mellitus without complications
CPT/HCPCS: 94150; 83880; 80061; 80053; 84443; 82248; 83735; 85025; 85610; 85730; 81001; 87086; 83036; 93880; 71275; 36415 ×2; 74174; Q9967

== ENCOUNTER → 2021-01-20 | Outpatient (CLI) | payer MEDICARE | END | disposition home or self-care (01) | LOC: LABPAT 09:21 | PROVIDERS: ATTEND Thoracic Surgery (Cardiothoracic Vascular Surgery) | DX: Z53.9 Procedure and treatment not carried out, unspecified reason (principal) ==

== ENCOUNTER 2021-01-25 05:46 | Inpatient (IN) | payer MEDICARE ==
[~2021-01-25 05:46] MED LIST changes: -ALPRAZolam 0.25 MG TAB PO PRN; -ALPRAZolam 0.5 MG TAB PO PRN; +ASPIRIN 325 MG TAB PO ONE; -ASPIRIN 325 MG TAB PO STA; +ATORVASTATIN 10 MG TAB PO ONE; -ATORVASTATIN 80 MG TAB PO STA; +CLEVIDIPINE BUTYRATE 25 MG in EMPTY BAG 1 BAG IV PRN; +CLOPIDOGREL 75 MG TAB PO ONE; +ELECTROLYTE-A SOLUTION 1,000 ML with POTASSIUM CHLORIDE 100 MEQ, MAGNESIUM SULFATE 16 M... IV PRN; +LACTATED RINGERS 1,000 ML IV SCH; +MD COMMUNICATION TO PHARMACY 1 EACH MISC PO ONE; +METOPROLOL TARTRATE 25 MG TAB PO ONE; -NITROGLYCERIN SL TABS 0.4 MG TAB SUBLINGUAL PRN; +NITROGLYCERIN-D5W PMX 25 MG/250 ML BTL IV PRN; +PROTAMINE SULFATE 250 MG in EMPTY BAG 1 BAG IV PRN; -SODIUM CHLORIDE 0.9% 1,000 ML in EMPTY BAG 1 BAG IV ONE; +TRANEXAMIC ACID 2,000 MG in SODIUM CHLORIDE 0.9% 80 ML IV PRN; +ceFAZolin 3 GM in SODIUM CHLORIDE 0.9% 100 ML IVPB ONE
[2021-01-25] MEDS ORDERED: SODIUM CHLORIDE 0.9% 1,000 ML IV ONE (06:40)
[2021-01-25 06:43] LABS: Basophils % (A) 1 %; Eosinophils # (A) 0.3 k/uL (0-0.7); Eosinophils % (A) 6 %; HCT 45.1 % (34.0-46.0); HGB 14.9 gm/dL (11.4-16.0); Lymphocytes # (A) 1.7 k/uL (1.0-4.8); Lymphocytes % (A) 35 %; MCH 31.5 pg (25.0-35.0); MCV 95.6 fL (80.0-100.0); Mean Platelet Volume 7.2; Monocytes # (A) 0.3 k/uL (0-1.0); Monocytes % (A) 6 %; Neutrophils # (A) 2.5 k/uL (1.3-7.7); Neutrophils % (A) 51 %; Platelet Count 246 k/uL (150-450); RBC 4.71 m/uL (3.80-5.40); RDW 13.7 % (11.5-15.5); WBC 4.8 k/uL (3.8-10.6)
[2021-01-25 06:54] LABS: INR 0.9 (<1.2); Prothrombin Time 10.2 sec (9.0-12.0)
[2021-01-25] MEDS ORDERED: LIDOCAINE 1% INJ 10MG/ML (20 ML MDV) ONE (07:41)
[2021-01-25] MEDS ORDERED: GLYCOPYRROLATE 0.2 MG/ML 2 ML VIAL ONE (07:41)
[2021-01-25] MEDS ORDERED: MIDAZOLAM 2 MG/2 ML VIAL ONE (07:41)
[2021-01-25] MEDS ORDERED: NEOSTIGMINE 1 MG/ML 10 ML VIAL ONE (07:41)
[2021-01-25] MEDS ORDERED: SUCCINYLCHOLINE CHLORIDE VIAL 200 MG/10 ML VIAL IV ONE (07:41)
[2021-01-25] MEDS ORDERED: fentaNYL (PF) 50 MCG/ML 2 ML AMP ONE (07:41)
[2021-01-25] MEDS ORDERED: PROPOFOL 10 MG/ML 20 ML VIAL IV ONE (07:41)
[2021-01-25] MEDS ORDERED: VECURONIUM 10 MG VIAL IV ONE (07:41)
--- NOTE | 2021-01-25 07:54 | P.ANPRN ---
Procedure Note - Anesthesia - Invasive Line Right Central Line Time Out Performed: Yes (0720) Date of Procedure: 01/25/21 Time of Procedure: 07:20 Location of Patient: PreOp Preparation: Sterile Prep, Sterile Dressing Ultrasound Used: Yes Purpose - Visualization and Identification of Vasculature: Yes Image Stored and Saved: Yes Narrative: Informed consent obtained. Central line placement per sterile protocol utilized. Right Internal jugular vein cannulated under aseptic precautions. 3cc 1% l idocaine infiltrated initially after cleaning with iodine based prep and draping. Ultrasound used to locate the vein and selginger technique used. 7Fr triple-lumen central line inserted and after the finding the needle with ferry pilot needle/catheter. Central line site is dressed with biopatch and tegaderm. Patient tolerated the procedure well. - SAUL Intraop Pre Bypass SAUL Intraop - Anesthesia Indication: Transcatheter aortic valve replacement surgery Date of Procedure: 01/25/21 Pre-operative Diagnosis: Severe aortic stenosis Post-operative Diagnosis: Trancatheter aortic valve replacement Surgeon: Stan Lagos Left Ventricle: Ejection fraction 55-60% Ejection Fraction: Normal Regional Wall Motion Abnormalities: None Left Ventricle Hypertrophy: No R. Ventricle Function: Normal Aortic Valve: Severe aortic stenosis seen valve area 0.7 cm peak gradient is 98 mmHg and a mean gradient of 62 mmHg. Calcifications seen Anatomy: Trileaflet Aortic Stenosis: Severe Aortic Regurgitation: None Mitral Stenosis: None Mitral Regurgitation: Mild Tricuspid Stenosis: None Tricuspid Regurgitation: Trace Pulmonic Stenosis: None Pulmonic Regurgitation: None R. Atrial Dilation: No R. Atrial PFO: No L. Atrial Dilation: No Aortic Dissection: No Aortic Calcification: None Plural Effusion: None - SAUL Intraop Post Bypass SAUL Intraop Post Bypass Procedure Performed: Transcatheter aortic valve replacement Left Ventricle: Ejection fraction 55-60% Ejection Fraction: Other (No pericardial effusion seen) Regional Wall Motion Abnormalities: None R. Ventricle Function: Normal Aortic Valve: Prosthetic valve in situ in aortic position. Appears to be seated well. Transvalvular gradient days 10 mm peek and 5 mm mean of mercury. Trace aortic regurgitation seen. Mitral Valve: Unchanged Tricuspid: Unchanged Pulmonic: Unchanged Aortic Dissection: No
[2021-01-25] MEDS ORDERED: IOPAMIDOL-370 100ML BTL INJ ONE (09:43)
[2021-01-25] MEDS ORDERED: ONDANSETRON 4 MG/2 ML VIAL IVP PRN (10:37)
[2021-01-25] MEDS ORDERED: IPRATROPIUM-ALBUTEROL 3 ML NEB INHALATION PRN (10:37)
--- NOTE | 2021-01-25 10:53 | P.OP ---
Date of Procedure: 01/25/21 Preoperative Diagnosis: Aortic valvular stenosis Postoperative Diagnosis: Same Procedure(s) Performed: Transcatheter aortic valve implantation with a 29 mm Korbel probe plus via right percutaneous transfemoral approach with temporary pacing wire placed via right subclavian venous percutaneous approach Implants: Screw-in Medtronic pacemaker lead in the right subclavian vein, 29 mm Korbel probe plus aortic valve prosthesis Anesthesia: GETA Surgeon: Stan Lagos [employer] Project Manager #1: Kahlil Roberts (Primary paralegal legal secretary) [employer] Project Manager #2: Nate Middleton (Secondary paralegal legal secretary) Estimated Blood Loss (ml): 25 IV fluids (ml): 1,000 Urine output (ml): 0 Pathology: none sent Condition: stable Disposition: ICU Indications for Procedure: 80-year-old morbidly obese female presents with worsening exertional dyspnea was found to have severe calcific aortic stenosis. She was worked up for and scheduled for elective transcatheter aortic valve replacement. Operative Findings: Heavily calcified tricuspid aortic valve with high intrinsic gradients mean of 50 and peak of 80. Good transcatheter valve implantation with levels of 5. Final SAUL demonstrates only very mild paravalvular aortic insufficiency with no significant gradient across the valve. Successful transfemoral closure by cardiology. Description of Procedure: Patient was brought to the cardiac slab puller and placed supine on the table. Gen. anesthesia was induced. She was appropriately positioned and draped. I punctured the right subclavian vein with an 18-gauge needle and a guidewire threaded into the right atrium. G Duser and dilator were placed over the guidewire and a screw-in ventricular lead was placed through the introducer and manipulated in the apex of the right ventricle. It was screwed in here and the introducer sheath was removed. Pacing threshold was less than 1 V. Bilateral femoral access was obtained by cardiology under ultrasonic guidance. On the left a long 6-[place]atorial [place] sheath was placed up into the descending thoracic aorta and a pigtail catheter advanced into the noncoronary cusp of the aortic valve. On the right 6-[place] sheath was placed and 2 Perclose devices were deployed. An 8-[place] sheath was then placed. The patient was systemically heparinized. Stiff wire was advanced through the right groin and the femoral artery dilated 10 and 12-[place]atorial [place] dilators and then a 16-[place] sheath was placed. Through this the valve was crossed by Dr. Roberts with a floppy wire. Pigtail catheter was positioned in the apex of the ventricle. Transverse valvular gradients were obtained. Over the stiff wire a 23 true balloon was advanced across the aortic valve. I performed an aortic valvuloplasty under rapid ventricular pacing. Wire was left in the apex of the ventricle and the balloon was removed. 29 core valve had been loaded on the back table. This was checked under fluoroscopy. We then exchanged the 16-[place] sheath for the core valve delivery system. This was advanced across the valve. The valve was deployed under rapid ventricular pacing at levels of [address] Roberts. SAUL demonstrated moderate paravalvular leak and the frame appeared to be under deployed. The delivery system was exchanged for the 16-Equ[place] sheath with the wire being left in the apex of the ventricle. Balloon valvuloplasty of the core valve prosthesis was performed with a 24 true balloon under rapid ventricular pacing. Following this the aortic insufficiency decreased to only mild. Stiff wire and balloon were removed and heparin was reversed with protamine. Bilateral femoral access was obtained by cardiology. Patient was transferred to the ICU in stable condition.
[2021-01-25 10:54] LABS: Glucose,Whole Blood 91 mg/dL (75-99)
[2021-01-25] MEDS: LACTATED RINGERS 1,000 ML IV SCH (11:28)
[2021-01-25 11:33] LABS: Basophils % (A) 0 %; Eosinophils # (A) 0.2 k/uL (0-0.7); Eosinophils % (A) 3 %; HCT 40.2 % (34.0-46.0); Lymphocytes % (A) 16 %; MCH 30.9 pg (25.0-35.0); MCHC 32.3 g/dL (31.0-37.0); MCV 95.7 fL (80.0-100.0); Mean Platelet Volume 7.6; Monocytes # (A) 0.4 k/uL (0-1.0); Monocytes % (A) 6 %; Neutrophils # (A) 4.5 k/uL (1.3-7.7); Neutrophils % (A) 73 %; Platelet Count 191 k/uL (150-450); RDW 13.7 % (11.5-15.5); WBC 6.2 k/uL (3.8-10.6)
--- NOTE | 2021-01-25 11:33 | XR ---
EXAMINATION TYPE: XR chest 1V portable DATE OF EXAM: 01/25/2021 HISTORY: Post Op CABG COMPARISON: 11/18/2020 TECHNIQUE: Single view of the chest is submitted. FINDINGS: Right IJ central venous line in place. Cardiac stent in place. Post operative changes of CABG. No sizeable pneumothorax. Scattered Pleural-parenchymal opacities may reflect atelectasis. The heart is not enlarged. IMPRESSION: 1. Post operative changes.
[2021-01-25 11:47] LABS: Partial Thromboplastin Time 24.7 sec (22.0-30.0); Prothrombin Time 10.8 sec (9.0-12.0)
[2021-01-25 11:54] LABS: Ionized Calcium 5.5 mg/dL (4.5-5.3)
[2021-01-25 12:04] LABS: Anion Gap 3 mmol/L; Blood Urea Nitrogen 20 mg/dL (7-17); Carbon Dioxide 27 mmol/L (22-30); Chloride 108 mmol/L (98-107); Glucose 114 mg/dL (74-99); Sodium 138 mmol/L (137-145)
[2021-01-25 12:05] LABS: ALT 66 U/L (4-34); AST 79 U/L (14-36); African American GFR (CKD) >90 (>60 ml/min/1.73 sqM); Albumin 3.1 g/dL (3.5-5.0); Alkaline Phosphatase 95 U/L (38-126); Calcium 9.1 mg/dL (8.4-10.2); Non-African American GFR(CKD) 85 (>60 ml/min/1.73 sqM); Total Bilirubin 0.6 mg/dL (0.2-1.3); Total Protein 5.7 g/dL (6.3-8.2)
[2021-01-25] MEDS: ACETAMINOPHEN TAB 325 MG TAB PO PRN ×2 (14:04→21:36)
--- NOTE | 2021-01-25 14:59 | P.CNPUL ---
History of Present Illness Consult date: 01/25/21 Requesting physician: Kahlil Roberts Reason for consult: dyspnea Chief complaint: Exertional dyspnea, aortic valvular stenosis History of present illness: This is a 80-year-old morbidly obese female patient, with past medical history of hypertension, coronary artery disease with previous history of stenting of the RCA, morbid obesity, obstructive sleep apnea compliant with CPAP, hypothyroidism, paroxysmal atrial fibrillation status post ablation, previous history of tobacco abuse, mild COPD, and severe symptomatic aortic stenosis who was seen in the structural heart clinic for the same. She has been following with Dr. Adkins for aortic stenosis, and most recent echocardiogram from October 2020 showed ejection fraction of 55% and Vmax of 4.4 m/s. Patient had a trans- esophageal echocardiogram on 12/09/2020 which showed a valve area of 1.2 cm with continued elevated velocity. Patient has been having increased dyspnea on exertion, lightheadedness and chest tightness. Patient had a heart catheterization on 12/09/2020 which showed mild CAD with mild luminal irregularities and patent RCA stent, and severe aortic stenosis. On 01/25/2021 patient came in for elective transcatheter aortic valve implantation via a right percutaneous transfemoral approach with temporary pacing wire placed via right subclavian venous percutaneous approach. Patient is seen in the postoperative period, doing well, resting comfortably in bed, having some mild generalized discomfort, but no acute distress. Hemodynamically stable, she is in sinus mechanism, with a rate of 52 BPM, afebrile, blood pressure is 149/61, patient is on the simple oxygen mask, with a pulse ox of 97%. Patient is on lactated Ringer's at 50 ML per hour, no other drips. Patient has a FemoStop in place, bilateral femoral puncture sites are clean dry and intact, distal pulses are palpable. Right subclavian temporary pacemaker wire in place, insertion site is clean dry and intact, soft, no evidence of hematoma. Review of Systems All systems: negative Constitutional: Denies chills, Denies fever Eyes: denies blurred vision, denies pain Ears, nose, mouth and throat: Denies headache, Denies sore throat Cardiovascular: Denies chest pain, Denies shortness of breath Respiratory: Reports dyspnea, Denies cough Gastrointestinal: Denies abdominal pain, Denies diarrhea, Denies nausea, Denies vomiting Genitourinary: Denies dysuria, Denies hematuria Musculoskeletal: Denies myalgias Integumentary: Denies pruritus, Denies rash Neurological: Denies numbness, Denies weakness Psychiatric: Denies anxiety, Denies depression Endocrine: Denies fatigue, Denies weight change Past Medical History Past Medical History: Atrial Fibrillation, Diabetes Mellitus, Deep Vein Thrombosis (DVT), GERD/Reflux, Hyperlipidemia, Hypertension, Myocardial Infarction (MO), Osteoarthritis (OA), Renal Disease, Sleep Apnea/CPAP/BIPAP, Thyroid Disorder Additional Past Medical History / Comment(s): kidney stones, cpap, dizziness, SOB w/exertion, "valve problem" per pt., diet controlled diabetic, occasional leg & feet swelling, had an aluminum ladder fall on left arm recently-lots of bruising from wrist all the way up arm, still w/half grapefruit size welt between shoulder & elbow Last Myocardial Infarction Date:: 01/2019 History of Any Multi-Drug Resistant Organisms: None Reported Past Surgical History: Cardiac Ablation, Cholecystectomy, Heart Catheterization With Stent, Hysterectomy Additional Past Surgical History / Comment(s): urinary stent placed 02/23/19, cervical neck surg. Past Anesthesia/Blood Transfusion Reactions: Previous Problems w/ Anesthesia, Motion Sickness Additional Past Anesthesia/Blood Transfusion Reaction / Comment(s): had problem in recovery after neck surg-turned blue & possibly stopped breathing? Date of Last Stent Placement:: 01/2019 Smoking Status: Former smoker Medications and Allergies Home Medications Medication Instructions Recorded Confirmed Type Aspirin 81 mg PO DAILY 02/24/19 01/25/21 History Magnesium Oxide [Mag-Ox] 250 mg PO BID 02/24/19 01/25/21 History Multivitamins, Thera [Multivitamin 1 tab PO DAILY 02/24/19 01/25/21 History (formulary)] Levothyroxine Sodium [Synthroid] 88 mcg PO DAILY 02/26/19 01/25/21 History Acetaminophen [Tylenol Arthritis] 1,300 mg PO DAILY PRN 07/21/20 01/25/21 History Atorvastatin [Lipitor] 40 mg PO HS 07/21/20 01/25/21 History Cinnamon Bark [Cinnamon] 250 mg PO BID 07/21/20 01/25/21 History Diclofenac Sodium [Voltaren 2 gm TOPICAL DAILY PRN 07/21/20 01/25/21 History Arthritis Pain 1% Gel] Gabapentin [Neurontin] 100 mg PO HS 07/21/20 01/25/21 History Warfarin [Coumadin] 2.5 mg PO SUTUWETHSA 07/21/20 01/25/21 History Clotrimazole Cream [Lotrimin Cream] 1 applic TOPICAL DAILY PRN 11/17/20 01/25/21 History Warfarin [Coumadin] 3.75 mg PO MOFR 11/17/20 01/25/21 History lisinopriL [Zestril] 2.5 mg PO DAILY 11/17/20 01/25/21 History amLODIPine [Norvasc] 2.5 mg PO DAILY 11/18/20 01/25/21 History Eye Drop For Allergies 1 drop BOTH EYES DIRECTED 11/30/20 01/25/21 History Furosemide [Lasix] 20 mg PO DAILY PRN 11/30/20 01/25/21 History Allergies Allergy/AdvReac Type Severity Reaction Status Date / Time codeine Allergy Nausea Verified 01/25/21 06:11 Latex, Natural Rubber Allergy Itching Verified 01/25/21 06:11 Penicillins Allergy Itching Verified 01/25/21 06:11 silver Allergy itchy, red Verified 01/25/21 06:11 [From [employer]esh] skin Physical Exam Vitals: Vital Signs Temp Pulse Pulse Resp BP BP BP 01/25/21 12:30 41 L 15 01/25/21 12:20 40 L 14 01/25/21 12:10 38 L 14 01/25/21 12:00 40 L 14 01/25/21 11:50 41 L 15 01/25/21 11:40 45 L 13 01/25/21 11:30 49 L 16 01/25/21 11:20 45 L 21 01/25/21 11:10 55 L 15 01/25/21 11:00 52 L 16 01/25/21 10:50 48 L 17 01/25/21 10:40 50 L 16 123/63 01/25/21 10:30 54 L 17 01/25/21 06:49 98.2 F 58 L 19 151/60 158/85 BP Pulse Ox 01/25/21 12:30 99 01/25/21 12:20 98 01/25/21 12:10 99 01/25/21 12:00 98 01/25/21 11:50 97 01/25/21 11:40 95 01/25/21 11:30 96 01/25/21 11:20 95 01/25/21 11:10 96 01/25/21 11:00 96 01/25/21 10:50 95 01/25/21 10:40 97 01/25/21 10:30 96 01/25/21 06:49 151/68 98 Intake and Output 01/24/21 01/25/21 01/25/21 22:59 06:59 14:59 Intake Total 100 700 Output Total 0 Balance 100 700 Intake: IV 100 600 Intake, IV Titration 100 Amount Lactated Ringers 1,000 ml 100 @ 50 mls/hr IV .Q20H [facility] Rx#:[id number] Output: Urine 0 Other: Voiding Method External Catheter Weight 125 kg ABP, PAP, CO, CI - Last 8 Hours Arterial Blood Pressure 146/62 Arterial Blood Pressure 148/61 Arterial Blood Pressure 146/57 Arterial Blood Pressure 148/62 Arterial Blood Pressure 149/61 Arterial Blood Pressure 147/62 Arterial Blood Pressure 142/60 Arterial Blood Pressure 142/57 Arterial Blood Pressure 145/55 Arterial Blood Pressure 147/53 Arterial Blood Pressure 145/55 Arterial Blood Pressure 140/54 Arterial Blood Pressure 151/61 GENERAL EXAM: Alert, 80-year-old white female on a simple oxygen mask, with O2 sat at 97%, in mild generalized discomfort, comfortable in no apparent distress. HEAD: Normocephalic/atraumatic. EYES: Normal reaction of pupils, equal size. Conjunctiva pink, sclera white. NOSE: Clear with pink turbinates. THROAT: No erythema or exudates. NECK: No masses, no JVD, no thyroid enlargement, no adenopathy. CHEST: No chest wall deformity. Symmetrical expansion. Right subclavian temporary pacemaker wire insertion site is clean dry and intact LUNGS: Equal air entry with no crackles, wheeze, rhonchi or dullness. CVS: Regular rate and rhythm, normal S1 and S2, no gallops, no murmurs, no rubs ABDOMEN: Soft, nontender. No hepatosplenomegaly, normal bowel sounds, no guar ding or rigidity. EXTREMITIES: No clubbing, no edema, no cyanosis, 2+ pulses and upper and lower extremities. Bilateral femoral artery puncture site clean dry and intact, there is a FemoStop in place, distal pulses are intact MUSCULOSKELETAL: Muscle strength and tone normal. SPINE: No scoliosis or deformity SKIN: No rashes, patient has a scab on the right upper arm, and areas of fading bruising on left arm from recent fall CENTRAL NERVOUS SYSTEM: Alert and oriented -3. No focal deficits, tone is normal in all 4 extremities. PSYCHIATRIC: Alert and oriented -3. Appropriate affect. Intact judgment and insight. Results - Laboratory Findings CBC and BMP: 01/25/21 11:13 01/25/21 11:13 PT/INR, D-dimer PT 10.8 sec (9.0-12.0) 01/25/21 11:13 INR 1.0 (<1.2) 01/25/21 11:13 Abnormal lab findings: Abnormal Labs 01/20/21 01/25/21 09:01 11:13 Chloride 108 H BUN 20 H Glucose 114 H Ionized Calcium Bianca 5.5 H AST 79 H ALT 66 H Total Protein 5.7 L Albumin 3.1 L Crossmatch See Detail - Diagnostic Findings Chest x-ray: report reviewed, image reviewed Assessment and Plan Plan: Assessment: #1. Symptomatic severe calcific aortic stenosis, status post transcatheter aortic valve implantation via right percutaneous transfemoral approach, postop day #0 #2. Mild coronary artery disease, with previous history of stenting #3. History of atrial fibrillation status post ablation, currently in sinus mechanism with a rate of 52 BPM #4. Hypertension #5. Mild COPD #6. Previous tobacco use #7. Morbid obesity #8. Obstructive sleep apnea Plan: Postoperative chest x-ray has been reviewed Patient was seen and examined with Dr. Damon Hemodynamically stable Wean FiO2, and switch the patient to nasal cannula Continue cefazolin per CT surgery Incentive spirometry to the bedside GI and DVT prophylaxis per cardiology and surgery Home meds have been reordered Echocardiogram has been ordered for morning I performed a history & physical examination of the patient and discussed their management with my nurse practitioner, Harleen Henry. I reviewed the nurse practitioner's note and agree with the documented findings and plan of care. Lung sounds are positive for diminished breath sounds throughout the lung case. The findings and the impression was discussed with the patient. I attest to the documentation by the nurse practitioner. Time with Patient: Greater than 30
[2021-01-25] MEDS: ceFAZolin 3 GM in SODIUM CHLORIDE 0.9% 100 ML IVPB SCH (16:52)
--- NOTE | 2021-01-25 17:28 | P.OP ---
Description of Procedure: Transcatheter Aoritc Valve Replacement Operative report PROCEDURE PERFORMED: 1. Percutaneous Aortic Valve Implantation using a 29 mm Core-Valve Evolut-Pro Plus. 2. Transesophageal echocardiography (performed by anesthesia) 3. Ultrasound guided access and repair of right femoral artery access site by Perclose closure device. 4. Placement of temporary pacemaker wire. 5. Aortic root angiography 6. Pre and post balloon aortic valvuloplasty with a 22mm and 24mm True balloon INDICATIONS: 1. 80 year-old with a history of severe symptomatic aortic valve stenosis. PERFORMING PHYSICIANS: 1. Nate Middleton DO Interventional Cardiology 2. Kahlil Roberts MD Interventional Cardiology. 3. Stan Lagos MD, Cardiothoracic Surgeon. 4. Eduar Mendez MD Proctoring Interventional cardiology SEDATION: General anesthesia provided by anesthesia, see separate note APPROACH: Right femoral artery via percutaneous approach PROCEDURE DESCRIPTION: The patient was discussed at valve clinic with multidisciplinary approach with cardiothoracic surgeon as well as advisory intern and thought better treated with TAVR. Risks, benefits, and alternatives of the procedure had been explained to the patient who understood the risks and agreed to proceed. After consents were obtained, patient was brought to the transcatheter aortic valve implantation r oom in the cardiac woven label designer and general anesthesia was provided by the anesthesiologist (see separate report). Once full body sterile prep was performed, right subclavian venous access was obtained and a temporary pacemaker was screwed in, performed by cardiothoracic surgery. Pacing threshholds were checked and deemed appropriate. Next the right femoral artery was accessed using a modified Seldinger technique, ultrasound guidance and micropuncture technique. A 6 [place]uan 65 cm destination sheath was placed in the left femoral artery. Next, a 6-[place] pigtail catheter was advanced into the aorta and positioned in the aortic root, aortic root angiography was performed to determine optimal deployment angle. The right femoral artery was accessed using modified Seldinger technique, micropuncture technique and under direct ultrasound guidance. Femoral angiogram was done showing access in the common femoral artery and a 6Fr sheath was placed. Next preclose technique was performed using 2 Percloses at 10 and 2 oclock position. Next a 0.035 Lunderquist wire was placed in the Aorta via a pigtail catheter. Over that the arteriotomy was serially dilated and a 14 Fr Marston sheath was placed. Next a 6F- AL1 catheter was advanced over a wire to the aortic root. A straight wire was advanced through the catheter and used to cross the severely stenotic valve. The AL1 was then exchanged for a 6Fr pigtail catheter and pressure measurements were obtained. The 0.035 Lunderquist wire was then positioned in the apex. Next per TAVR BAV was performed with a 22mm True balloon with rapid pacing. Next a 29 mm Corevalve Evolut-Pro Plus was advanced. The valve was then positioned across the aortic valve and confirmed with aortic root angiography. The valve was initially partially deployed however needed repositioning and therefore was partially recaptured. The valve was then deployed in proper position using slow deployment and with rapid pacing in conjuncture with aortic root angiography and SAUL. The delivery system was withdrawn back into the arch. There was still mild to moderate aortic regurgitation and therefore post TAVR BAV was performed with a 24mm True balloon with rapid pacing. Aortic root injection in conjunction with SAUL demonstrated a satisfactory result. There was mild para valvular leak. There was no evidence of any other significant abnormalities. The preclose Perclose was then deployed in the right femoral artery and hemostasis was achieved. The pigtail was then advanced to the level of the iliac bifurcation via the left femoral access. Femoral angiogram was performed that showed initial small contrast leak however this resolved after 5 minutes of manual pressure. The left femoral angiogram demonstrated an arteriotomy in the common femoral artery and this was repaired using a 6F angioseal device with complete hemostasis. The temporary venous pacemaker was sutured in place. The patient was then transported to the ICU in hemodynamically stable condition, requiring no pressor support. COMPLICATIONS: None CONCLUSION: 1. Implantaion of 29mm Core-Valve Evolut-Pro Plus transcatheter aortic valve via right femoral approach under SAUL and fluoro guidance. 2. Placement of temporary pacemaker wire 3. Aortic Root Aortogram. 4. Pre and post balloon aortic valvuloplasty with a 22mm and 24mm True balloon RECOMMENDATIONS: The patient will be monitored in the ICU for hemodynamic and electrical stability. Patient will be on aspirin and Plavix, and then transitioned to Plavix and Coumadin.
[2021-01-25] MEDS: ATORVASTATIN 40 MG TAB PO SCH (21:36)
[2021-01-25] MEDS: MAGNESIUM OXIDE 400 MG TAB PO SCH (21:36)
[2021-01-25] MEDS: GABAPENTIN 100 MG CAP PO SCH (21:36)
[2021-01-26] MEDS: HEPARIN SODIUM,PORCINE/PF 5,000 UNIT/0.5 ML SYRINGE SQ SCH (00:14)
[2021-01-26] MEDS: ceFAZolin 3 GM in SODIUM CHLORIDE 0.9% 100 ML IVPB SCH (00:14)
[2021-01-26] MEDS: ACETAMINOPHEN TAB 325 MG TAB PO PRN ×2 (01:16→17:13)
[2021-01-26 05:12] LABS: Basophils % (A) 0 %; Eosinophils # (A) 0.1 k/uL (0-0.7); Eosinophils % (A) 2 %; HCT 38.7 % (34.0-46.0); HGB 12.5 gm/dL (11.4-16.0); Lymphocytes # (A) 0.7 k/uL (1.0-4.8); Lymphocytes % (A) 12 %; MCH 30.6 pg (25.0-35.0); MCHC 32.2 g/dL (31.0-37.0); Mean Platelet Volume 7.6; Monocytes # (A) 0.4 k/uL (0-1.0); Monocytes % (A) 6 %; Neutrophils # (A) 4.8 k/uL (1.3-7.7); Neutrophils % (A) 78 %; Platelet Count 188 k/uL (150-450); RBC 4.07 m/uL (3.80-5.40); RDW 13.5 % (11.5-15.5); WBC 6.1 k/uL (3.8-10.6)
[2021-01-26 05:46] LABS: Prothrombin Time 10.3 sec (9.0-12.0)
[2021-01-26] MEDS: PANTOPRAZOLE 40 MG TABLET PO SCH (06:44)
[2021-01-26] MEDS: LEVOTHYROXINE 88 MCG TAB PO SCH (06:44)
[2021-01-26] MEDS: LACTATED RINGERS 1,000 ML IV SCH (06:45)
[2021-01-26 07:49] LABS: Ionized Calcium 5.4 mg/dL (4.5-5.3)
[2021-01-26 07:56] LABS: ALT 51 U/L (4-34); AST 60 U/L (14-36); African American GFR (CKD) >90 (>60 ml/min/1.73 sqM); Albumin 3.1 g/dL (3.5-5.0); Alkaline Phosphatase 90 U/L (38-126); Anion Gap 5 mmol/L; Blood Urea Nitrogen 16 mg/dL (7-17); Calcium 9.2 mg/dL (8.4-10.2); Carbon Dioxide 25 mmol/L (22-30); Chloride 106 mmol/L (98-107); Glucose 129 mg/dL (74-99); Non-African American GFR(CKD) 84 (>60 ml/min/1.73 sqM); Potassium 4.1 mmol/L (3.5-5.1); Sodium 136 mmol/L (137-145); Total Bilirubin 0.6 mg/dL (0.2-1.3); Total Protein 5.7 g/dL (6.3-8.2)
--- NOTE | 2021-01-26 08:32 | CT ---
EXAMINATION TYPE: CODE STROKE: CT brain wo contr DATE OF EXAM: 01/26/2021 COMPARISON: None HISTORY: Lt arm weakness CT DLP: 1119.[address] of the brain was performed. The ventricles, basal cisterns and sulci overlying the cerebral convexities demonstrate mild enlargem ent. There is no evidence for intracranial hemorrhage or sulcal effacement. There is decreased attenuation about the periventricular white matter and deep white matter of both c erebral hemispheres, compatible with chronic small vessel ischemia. Differential diagnosis does inclu de demyelination. No mass effects are seen.No midline shift. Osseous calvarium is intact. If symptoms persist consider MRI. IMPRESSION: 1. Age related atrophic and chronic small vessel ischemic change without acute intracranial process s een at this time.
[2021-01-26] MEDS ORDERED: HEPARIN SOD,PORK IN 0.45% NACL 25,000 UNIT in 0.45% NACL 1 250ML.BAG IV SCH (08:45)
[2021-01-26] MEDS ORDERED: HEPARIN SODIUM 1,000 UN/ML (10ML VL) IV ONE (08:45)
[2021-01-26] MEDS ORDERED: HEPARIN SODIUM 1,000 UN/ML (10ML VL) IV PRN (08:45)
[2021-01-26] MEDS ORDERED: MAGNESIUM HYDROXIDE 2,400 MG/10 ML CUP PO PRN (09:00)
[2021-01-26] MEDS ORDERED: ASPIRIN 81 MG PO SCH (09:00)
[2021-01-26] MEDS: amLODIPine 2.5 MG TAB PO SCH (09:10)
[2021-01-26] MEDS: CLOPIDOGREL 75 MG TAB PO SCH (09:10)
[2021-01-26] MEDS: MULTIVITAMINS, THERA 1 EACH TAB PO SCH (09:10)
[2021-01-26] MEDS: MAGNESIUM OXIDE 400 MG TAB PO SCH ×2 (09:10→20:09)
--- NOTE | 2021-01-26 09:18 | P.PN ---
Subjective Progress Note Date: 01/26/21 Principal diagnosis: Severe symptomatic aortic valve stenosis. Previous medical history of coronary artery disease with myocardial infarction status post stent placement to the [facility] coronary artery, sinus bradycardia with first-degree AV block, paroxysmal atrial fibrillation status post ablation on Coumadin for anticoagulation, hypertension, diet controlled diabetes, obstructive sleep apnea with home CPAP use, hypothyroid, previous tobacco dependence, obesity, and family history of premature coronary artery disease POD #1 catheter aortic valve implantation with a 29 mm core valve evolut pro plus via right percutaneous transfemoral approach with temporary pacing wire pl aced via right subclavian venous percutaneous approach, transesophageal echocardiogram performed by anesthesia, ultrasound-guided access and repair of right femoral artery access site by Perclose closure device, aortic root angiography, pre-and post balloon aortic valvuloplasty with a 22 mm and 24 mm True Blue The patient was seen and examined in the intensive care unit this morning sitting up in the recliner. She denies any chest pain or shortness of breath. She does complain, however, of left arm weakness and dexterity issues. She states it feels like her arm is not connected to her body and she is able to allergist/md objects but it takes her a while. She was sent for stat CT of the brain [facility] radiology reading no acute intracranial bleed, no acute process. Neurology was consulted. Remains in sinus rhythm with first-degree AV block. Hemodynamically stable, currently on room air with oxygen saturation in the low to mid 90s. Able to achieve 1250 mL on incentive spirometry. Bilateral groin sites soft, ecchymotic, without drainage. Right-sided transvenous pacemaker wires remain present, grounded. No other new concerns. Objective - Vital Signs Vital signs: Vital Signs Temp 97.7 F 01/26/21 06:00 Pulse 61 01/26/21 07:00 Resp 12 01/26/21 07:00 BP 111/54 01/26/21 06:00 Pulse Ox 92 L 01/26/21 07:00 Intake & Output 01/25/21 01/26/21 01/26/21 18:59 06:59 18:59 Intake Total 800 100 Output Total 0 950 150 Balance 800 -850 -150 Weight 125 kg 128 kg Intake: IV 600 Intake, IV Titration 200 100 Amount Lactated Ringers 1,000 ml 100 @ 50 mls/hr IV .Q20H [facility] Rx#:[id number] ceFAZolin 3 gm In Sodium 100 100 Chloride 0.9% 100 ml @ 200 mls/hr IVPB Q8HR [facility] Rx#:[id number] Output: Urine 0 950 150 Other: Voiding Method Bedpan Bedpan External Catheter External Catheter # Voids 1 0 ABP, PAP, CO, CI - Last Documented Arterial Blood Pressure 132/49 - Exam CONSTITUTIONAL: Appears comfortable, cooperative RESPIRATORY: Lungs sounds diminished bilaterally. Respirations even, nonlabored. Currently on room air with oxygen saturation 92%. Able to achieve 1250 mL on incentive spirometry. Strong cough. CARDIOVASCULAR: S1, S2 present. Regular rate and rhythm, sinus rhythm with first-degree AV block on telemetry. Transvenous pacemaker wire present, grounded. Doppler lower extremity pulses bilaterally. No calf pain or tenderness noted. Antiembolism stockings, SCDs present. GASTROINTESTINAL: Abdomen soft, nontender, nondistended. Active bowel sounds present 4 quadrants. Tolerating diet. Positive bowel movement. GENITOURINARY: Continues to void clear, yellow urine. INTEGUMENTARY: Skin is warm and dry. Bilateral groin sites soft, nontender, ecchymotic. Dressings in place without drainage present NEUROLOGIC: Cranial nerves II through XII intact MUSKULOSKELETAL: Able to move all extremities. Patient does have some noted mild left upper extremity weakness and dexterity issues PSYCHIATRIC: Alert and oriented to person place and time, appropriate affect, intact judgment and insight - Allied health notes Allied health notes reviewed: nursing - Labs CBC & Chem 7: 01/26/21 04:30 01/26/21 04:30 Labs: Abnormal Lab Results - Last 24 Hours (Table) 01/20/21 01/25/21 01/26/21 Range/Units 09:01 11:13 04:30 Lymphocytes # 0.7 L (1.0-4.8) k/uL Sodium (137-145) mmol/L Chloride 108 H (98-107) mmol/L BUN 20 H (7-17) mg/dL Glucose 114 H (74-99) mg/dL Ionized Calcium Bianca 5.5 H (4.5-5.3) mg/dL AST 79 H (14-36) U/L ALT 66 H (4-34) U/L Total Protein 5.7 L (6.3-8.2) g/dL Albumin 3.1 L (3.5-5.0) g/dL Crossmatch See Detail 01/26/21 Range/Units 04:30 Lymphocytes # (1.0-4.8) k/uL Sodium 136 L (137-145) mmol/L Chloride (98-107) mmol/L BUN (7-17) mg/dL Glucose 129 H (74-99) mg/dL Ionized Calcium Bianca 5.4 H (4.5-5.3) mg/dL AST 60 H (14-36) U/L ALT 51 H (4-34) U/L Total Protein 5.7 L (6.3-8.2) g/dL Albumin 3.1 L (3.5-5.0) g/dL Crossmatch - Imaging and Cardiology Chest x-ray: image reviewed CT Scan - head: report reviewed, image reviewed Assessment and Plan Assessment: 1. Severe symptomatic aortic valve stenosis, status post TAVR with 29 mm core valve evolut pro plus 2. History of coronary artery disease with myocardial infarction status post stent placement to the right coronary artery 3. Sinus bradycardia with first-degree AV block 4. Paroxysmal atrial fibrillation status post ablation on Coumadin for anticoagulation 5. History of hypertension 6. History of diet controlled diabetes, recent hemoglobin A1c 5.7% 7. Obstructive sleep apnea with home CPAP use 8. Hypothyroid 9. Previous tobacco dependence, severe restrictive lung disease with preoperative FEV1 48% of predicted 10. Obesity 11. Family history of premature coronary artery disease Plan: 1. Will continue Plavix, statin. Stop aspirin. No beta dc, contraindicated due to significant bradycardia 2. Will initiate IV heparin. Will restart patient's home dose of Coumadin this evening 3. Will continue transvenous pacemaker wire for another 24 hours 4. Neurology consulted, appreciate recommendations 5. Increase activity as tolerated. Will add PT/OT for left arm weakness 6. Continue other home medications 7. Echocardiogram completed this morning, report pending 8. More recommendations to follow Time with Patient: Greater than 30
--- NOTE | 2021-01-26 09:47 | P.PN ---
Subjective Progress Note Date: 01/26/21 Principal diagnosis: Aortic stenosis status post TAVR procedure This is a 80-year-old morbidly obese female patient, with past medical history of hypertension, coronary artery disease with previous history of stenting of the RCA, morbid obesity, obstructive sleep apnea compliant with CPAP, hypothyroidism, paroxysmal atrial fibrillation status post ablation, previous history of tobacco abuse, mild COPD, and severe symptomatic aortic stenosis who was seen in the structural heart clinic for the same. She has been following with Dr. Adkins for aortic stenosis, and most recent echocardiogram from October 2020 showed ejection fraction of 55% and Vmax of 4.4 m/s. Patient had a trans- esophageal echocardiogram on 12/09/2020 which showed a valve area of 1.2 cm with continued elevated velocity. Patient has been having increased dyspnea on exertion, lightheadedness and chest tightness. Patient had a heart catheterization on 12/09/2020 which showed mild CAD with mild luminal irregularities and patent RCA stent, and severe aortic stenosis. On 01/25/2021 patient came in for elective transcatheter aortic valve implantation via a right percutaneous transfemoral approach with temporary pacing wire placed via right subclavian venous percutaneous approach. Patient is seen in the postoperative period, doing well, resting comfortably in bed, having some mild generalized di scomfort, but no acute distress. Hemodynamically stable, she is in sinus mechanism, with a rate of 52 BPM, afebrile, blood pressure is 149/61, patient is on the simple oxygen mask, with a pulse ox of 97%. Patient is on lactated Ringer's at 50 ML per hour, no other drips. Patient has a FemoStop in place, bilateral femoral puncture sites are clean dry and intact, distal pulses are palpable. Right subclavian temporary pacemaker wire in place, insertion site is clean dry and intact, soft, no evidence of hematoma. The patient is seen today 01/26/2021 in follow-up in the intensive care unit. This is postoperative day #1. She is currently sitting up in a chair at the bedside. She is having some left upper extremity weakness and dexterity issues. Difficulty in reaching and grasping objects. Her arm feels slightly heavy. Her hand grasp is slightly weaker than the right. Computed tomography scan of the brain revealed no evidence of acute intracranial bleed or acute process. She remains in normal sinus rhythm. She denies any worsening shortness of breath, cough or congestion. Pulling approximately [id number] of the incentive spirometer. Right-sided subclavian transvenous pacer wires remain present. Chest x-ray shows no evidence of pneumothorax. Some atelectatic changes in the left lung base. White count 6.1. Hemoglobin 12.5. Platelets 188. Sodium 136. Potassium 4.1. Creatinine 0.68. AST 60, ALT 51. Glucose 129. She's been initiated on a heparin drip. She was on warfarin in the outpatient setting. Objective - Vital Signs Vital signs: Vital Signs Temp 97.7 F 01/26/21 06:00 Pulse 61 01/26/21 07:00 Resp 12 01/26/21 07:00 BP 111/54 01/26/21 06:00 Pulse Ox 92 L 01/26/21 07:00 Intake & Output 01/25/21 01/26/21 01/26/21 18:59 06:59 18:59 Intake Total 800 100 Output Total 0 950 150 Balance 800 -850 -150 Weight 125 kg 128 kg Intake: IV 600 Intake, IV Titration 200 100 Amount Lactated Ringers 1,000 ml 100 @ 50 mls/hr IV .Q20H [facility] Rx#:[id number] ceFAZolin 3 gm In Sodium 100 100 Chloride 0.9% 100 ml @ 200 mls/hr IVPB Q8HR [facility] Rx#:[id number] Output: Urine 0 950 150 Other: Voiding Method Bedpan Bedpan External Catheter External Catheter # Voids 1 0 ABP, PAP, CO, CI - Last Documented Arterial Blood Pressure 132/49 - Exam GENERAL EXAM: Alert, 80-year-old female on room air, with O2 sat at 92%, she is having some weakness in the left upper extremity, comfortable in no apparent distress. HEAD: Normocephalic/atraumatic. EYES: Normal reaction of pupils, equal size. Conjunctiva pink, sclera white. NOSE: Clear with pink turbinates. THROAT: No erythema or exudates. NECK: No masses, no JVD, no thyroid enlargement, no adenopathy. CHEST: No chest wall deformity. Symmetrical expansion. Right subclavian temporary pacemaker wire insertion site is clean dry and intact LUNGS: Equal air entry with no crackles, wheeze, rhonchi or dullness. CVS: Regular rate and rhythm, normal S1 and S2, no gallops, no murmurs, no rubs ABDOMEN: Soft, nontender. No hepatosplenomegaly, normal bowel sounds, no guarding or rigidity. EXTREMITIES: She is having some weakness and dexterity issues with her left upper extremity. No clubbing, no edema, no cyanosis, 2+ pulses and upper and lower extremities. MUSCULOSKELETAL: Muscle strength and tone normal. SPINE: No scoliosis or deformity SKIN: No rashes, patient has a scab on the right upper arm, and areas of fading bruising on left arm from recent fall CENTRAL NERVOUS SYSTEM: Alert and oriented -3. Left upper extremity weakness, tone is normal in all 4 extremities. PSYCHIATRIC: Alert and oriented -3. Appropriate affect. Intact judgment and insight. - Labs CBC & Chem 7: 01/26/21 04:30 01/26/21 04:30 Labs: Abnormal Lab Results - Last 24 Hours (Table) 01/20/21 01/25/21 01/26/21 Range/Units 09:01 11:13 04:30 Lymphocytes # 0.7 L (1.0-4.8) k/uL Sodium (137-145) mmol/L Chloride 108 H (98-107) mmol/L BUN 20 H (7-17) mg/dL Glucose 114 H (74-99) mg/dL Ionized Calcium Bianca 5.5 H (4.5-5.3) mg/dL AST 79 H (14-36) U/L ALT 66 H (4-34) U/L Total Protein 5.7 L (6.3-8.2) g/dL Albumin 3.1 L (3.5-5.0) g/dL Crossmatch See Detail 01/26/21 Range/Units 04:30 Lymphocytes # (1.0-4.8) k/uL Sodium 136 L (137-145) mmol/L Chloride (98-107) mmol/L BUN (7-17) mg/dL Glucose 129 H (74-99) mg/dL Ionized Calcium Bianca 5.4 H (4.5-5.3) mg/dL AST 60 H (14-36) U/L ALT 51 H (4-34) U/L Total Protein 5.7 L (6.3-8.2) g/dL Albumin 3.1 L (3.5-5.0) g/dL Crossmatch Assessment and Plan Assessment: 1 Symptomatic severe calcific aortic stenosis, status post transcatheter aortic valve implantation via right percutaneous transfemoral approach, postop day #1 2 Left upper extremity weakness which is new, computed tomography scan of the brain reveals no acute process 3 History of atrial fibrillation status post ablation, currently in sinus mechanism on warfarin in the outpatient setting 4 Hypertension 5 Mild COPD 6 Previous tobacco use 7 Morbid obesity 8 Obstructive sleep apnea 9 Mild coronary artery disease, with previous history of stenting Plan: The patient was seen and evaluated by Dr. Damon Chest x-ray, CAT scan of the brain and labs reviewed Some issues with left upper extremity weakness Heparin drip initiated Pacer wires to remain in place today Stable from the pulmonary standpoint, utilizing the incentive spirometer, on room air We will continue to follow and make further recommendations based on her clinical status I, the cosigning physician, performed a history & physical examination of the patient. Lungs sounds are clear, diminished. Maintaining good O2 saturations in the 90s on room air. I discussed the assessment and plan of care with my nurse practitioner, Yumiko Ernst. I attest to the above note as dictated by her.
[2021-01-26 10:12] VITALS: BMI 51.6
--- NOTE | 2021-01-26 10:27 | XR ---
EXAMINATION TYPE: XR chest 1V portable DATE OF EXAM: 01/26/2021 Comparison: 01/25/2021 Clinical History: 80-year-old female Post Operative Cardiac Surgery Findings: ACDF hardware. Endovascular aortic valve replacement. Patchy opacity at the left base remains and has slightly improved. No other consolidation or increasing pleural effusion. Transvenous right ventricu lar pacer lead. Impression: Endovascular aortic valve replacement. Focal left basilar opacity, probably atelectasis shows some im provement.
--- NOTE | 2021-01-26 10:52 | ECHOF ---
Referral Reason:post TAVR MEASUREMENTS -------- HEIGHT: 157.5 cm WEIGHT: 124.7 kg BP: RVIDd: 2.6 cm (< 3.3) IVSd: 1.2 cm (0.6 - 1.1) LVIDd: 3.9 cm (3.9 - 5.3) LVPWd: 1.4 cm (0.6 - 1.1) IVSs: 1.7 cm LVIDs: 2.0 cm LVPWs: 2.1 cm Ao Diam: 2.7 cm (2.0 - 3.7) LA Diam: 3.4 cm (2.7 - 3.8) MV EXCURSION: 16.898 mm (> 18.000) MV EF SLOPE: 80 mm/s (70 - 150) EPSS: 0.6 cm MV E Gualberto: 0.64 m/s MV DecT: 277 ms MV A Gualberto: 0.68 m/s MV E/A Ratio: 0.94 AV maxP.70 mmHg AV meanP.33 mmHg RAP: 5.00 mmHg RVSP: 9.49 mmHg FINDINGS -------- This was a technically difficult study with suboptimal views. The left ventricular size is normal. There is mild concentric left ventricular hypertrophy. Overa ll left ventricular systolic function is normal with, an EF between 55 - 60 %. The right ventricle is normal in size. The left atrial size is normal. The right atrial size is normal. Lumason used There is no evidence of aortic regurgitation. Peak/mean gradient across the Aortic Valve is 17.70mm Hg / 10.33mmHg. Normally functioning bioprosthetic valve. The mitral valve is normal. There is trace mitral regurgitation. The tricuspid valve appears structurally normal. Trace tricuspid regurgitation present. Right kelle tricular systolic pressure is normal at < 35 mmHg. There is no pulmonic regurgitation present. The aortic root size is normal. IVC Not well visulized. There is no pericardial effusion. CONCLUSIONS -------- 1. The left ventricular size is normal. 2. There is mild concentric left ventricular hypertrophy. 3. Overall left ventricular systolic function is normal with, an EF between 55 - 60 %. 4. There is no evidence of aortic regurgitation. 5. Peak/mean gradient across the Aortic Valve is 17.70mmHg / 10.33mmHg. 6. Normally functioning bioprosthetic valve. 7. There is trace mitral regurgitation. 8. Trace tricuspid regurgitation present. 9. There is no pericardial effusion. NEONATAL CRITICAL CARE NURSE: Flakita Mckeon RDCS
--- NOTE | 2021-01-26 11:45 | P.PN ---
Subjective HISTORY OF PRESENTING ILLNESS This is a pleasant 80 female with a history of coronary artery disease with history of PCI of the RCA in the past, sinus bradycardia, paroxysmal atrial fibrillation status post ablation, hypertension, diabetes mellitus type 2 diet controlled, obstructive sleep apnea, hypothyroidism, previous tobacco abuse, obesity. Patient underwent transcatheter aortic valve replacement 01/25/2021 from right femoral approach. She still does have an externalized pacemaker from the right subclavian approach. Telemetry does not reveal any significant bradycardia. She has been having some left arm weakness and feeling "weak all over ". She also has been having some disequilibrium with feeling like she cannot note her depth when using her left hand. No significant hematoma from the femoral approaches. She denies any chest pain, pressure, tightness. PHYSICAL EXAMINATION Vital signs reviewed. CONSTITUTIONAL: No apparent distress. HEENT: Head is normocephalic. Pupils are equal, round. Sclerae anicteric. Mucous membranes of the mouth are moist. No JVD. No carotid bruit. CHEST EXAMINATION: Lungs are clear to auscultation. No chest wall tenderness is noted on palpation or with deep breathing. HEART EXAMINATION: Regular rate and rhythm. S1, S2 heard. No murmurs, gallops or rub. ABDOMEN: Soft, nontender. Positive bowel sounds. EXTREMITIES: 2+ peripheral pulses, no lower extremity edema and no calf tenderness. NEUROLOGIC EXAMINATION: Patient is awake, alert and oriented x3. ASSESSMENT 1. Severe symptomatic aortic stenosis status post TAVR with a 29 mm Evolut Pro + 2. History of coronary artery disease status post PCI of the RCA 3. Hypertension 4. Paroxysmal atrial fibrillation 5. New-onset of left-sided weakness and disequilibrium, rule out stroke versus other 6. Hypothyroidism 7. Obstructive sleep apnea 8. Diabetes mellitus type 2 PLAN Patient underwent successful TAVR from a right femoral approach and sites appear good without any hematoma, mild ecchymosis noted. No beta blockers at this time given history of bradycardia. We will start heparin drip and start Coumadin with goal INR 2-3. Continue Plavix and we will refrain from triple therapy at this point given increased risk of bleeding. Neurology recommendations appreciated regarding left-sided weakness and disequilibrium. Continue working with physical therapy and discussed goal of up to chair and walking if able. Hopeful discharge in next 24-48 hours. Objective - Vital Signs Vital signs: Vital Signs Temp 97.7 F 01/26/21 06:00 Pulse 61 01/26/21 07:00 Resp 12 01/26/21 07:00 BP 111/54 01/26/21 06:00 Pulse Ox 92 L 01/26/21 07:00 Intake & Output 01/25/21 01/26/21 01/26/21 18:59 06:59 18:59 Intake Total 800 100 Output Total 0 950 150 Balance 800 -850 -150 Weight 125 kg 128 kg 128 kg Intake: IV 600 Intake, IV Titration 200 100 Amount Lactated Ringers 1,000 ml 100 @ 50 mls/hr IV .Q20H [facility] Rx#:[id number] ceFAZolin 3 gm In Sodium 100 100 Chloride 0.9% 100 ml @ 200 mls/hr IVPB Q8HR [facility] Rx#:[id number] Output: Urine 0 950 150 Other: Voiding Method Bedpan Bedpan External Catheter External Catheter # Voids 1 0 ABP, PAP, CO, CI - Last Documented Arterial Blood Pressure 132/49 - Labs CBC & Chem 7: 01/26/21 04:30 01/26/21 04:30 Labs: Abnormal Lab Results - Last 24 Hours (Table) 01/20/21 01/25/21 01/26/21 Range/Units 09:01 11:13 04:30 Lymphocytes # 0.7 L (1.0-4.8) k/uL Sodium (137-145) mmol/L Chloride 108 H (98-107) mmol/L BUN 20 H (7-17) mg/dL Glucose 114 H (74-99) mg/dL Ionized Calcium Bianca 5.5 H (4.5-5.3) mg/dL AST 79 H (14-36) U/L ALT 66 H (4-34) U/L Total Protein 5.7 L (6.3-8.2) g/dL Albumin 3.1 L (3.5-5.0) g/dL Crossmatch See Detail 01/26/21 Range/Units 04:30 Lymphocytes # (1.0-4.8) k/uL Sodium 136 L (137-145) mmol/L Chloride (98-107) mmol/L BUN (7-17) mg/dL Glucose 129 H (74-99) mg/dL Ionized Calcium Bianca 5.4 H (4.5-5.3) mg/dL AST 60 H (14-36) U/L ALT 51 H (4-34) U/L Total Protein 5.7 L (6.3-8.2) g/dL Albumin 3.1 L (3.5-5.0) g/dL Crossmatch
--- NOTE | 2021-01-26 12:26 | P.CNNES ---
History of Present Illness Consult date: 01/26/21 Requesting physician: Flakita Gomez Reason for Consult: new left arm weakness post TAVR History of Present Illness: This is a 80-year-old woman with medical history of atrial fibrillation status post ablation and is on coumadin, severe symptomatic aortic stenosis, hypertension, coronary artery disease with the stenting, hypogonadism, morbid obesity, obstructive sleep apnea on CPAP is having increased dyspnea on exertion lightheadedness and chest tightness. Neurologist consulted for new left hand weakness. On 01/25/2021 patient came in for elective transcatheter aortic valve implantation. Per the patient's nurse she has history of the some left-sided weakness but she noticed worsening of the weakness after the surgery. Unknown 1 last normal state that she said was right after surgery but per the patient nurse she didn't notify anybody and that her left hand is weak on told was 6:40 AM today. She denies of any visual disturbance, any difficulty getting her words out, any difficulty swallowing, any numbness or tingling. She denies any weakness on the right side. According to patient she had an injury about a week ago in which a ladder fell on her but the per the nurse she had an incident about 6 weeks ago that she was notified of and has bruises on left side. Some other workup in the hospital consisted of: CT of the head is reported as age-related atrophic and chronic small vessel ischemic change without acute intracranial process seen at this time. 2D echo was reported as mild concentric left ventricle hypertrophy. Ejection fraction of 55-60%. Left atrial size is normal. Patient had a recent carotid duplex on the 01/05/2021 inch reported as no hemodynamically significant stenosis identified in either internal carotid artery. Note is made of arrhythmia during the real-time scanning. Correlate clinically. CBC with differential is unremarkable. Chemistry panel is sodium is 136, creatinine is 0.68, glucose of 129, calcium is 9.2, magnesium 2.0, AST of 60 and ALT of 51 Hooper virus per chart nondetected Patient is not given TPA since unknown last normal and unknown if this isn't th is is truly a stroke or not as well as the patient is on Coumadin at home and currently is on heparin. Review of Systems Review of system: The 12 point system was reviewed and apparent positive and negative per HPI. Past Medical History Past Medical History: Atrial Fibrillation, Diabetes Mellitus, Deep Vein Thr ombosis (DVT), GERD/Reflux, Hyperlipidemia, Hypertension, Myocardial Infarction (NE), Osteoarthritis (OA), Renal Disease, Sleep Apnea/CPAP/BIPAP, Thyroid Disorder Additional Past Medical History / Comment(s): kidney stones, cpap, dizziness, SOB w/exertion, "valve problem" per pt., diet controlled diabetic, occasional leg & feet swelling, had an aluminum ladder fall on left arm recently-lots of bruising from wrist all the way up arm, still w/half grapefruit size welt betw een shoulder & elbow Last Myocardial Infarction Date:: 01/2019 History of Any Multi-Drug Resistant Organisms: None Reported Past Surgical History: Cardiac Ablation, Cholecystectomy, Heart Catheterization With Stent, Hysterectomy Additional Past Surgical History / Comment(s): urinary stent placed 02/23/19, cervical neck surg. Past Anesthesia/Blood Transfusion Reactions: Previous Problems w/ Anesthesia, Motion Sickness Additional Past Anesthesia/Blood Transfusion Reaction / Comment(s): had problem in recovery after neck surg-turned blue & possibly stopped breathing? Date of Last Stent Placement:: 01/2019 Smoking Status: Former smoker Medications and Allergies Home Medications Medication Instructions Recorded Confirmed Type Aspirin 81 mg PO DAILY 02/24/19 01/25/21 History Magnesium Oxide [Mag-Ox] 250 mg PO BID 02/24/19 01/25/21 History Multivitamins, Thera [Multivitamin 1 tab PO DAILY 02/24/19 01/25/21 History (formulary)] Levothyroxine Sodium [Synthroid] 88 mcg PO DAILY 02/26/19 01/25/21 History Acetaminophen [Tylenol Arthritis] 1,300 mg PO DAILY PRN 07/21/20 01/25/21 History Atorvastatin [Lipitor] 40 mg PO HS 07/21/20 01/25/21 History Cinnamon Bark [Cinnamon] 250 mg PO BID 07/21/20 01/25/21 History Diclofenac Sodium [Voltaren 2 gm TOPICAL DAILY PRN 07/21/20 01/25/21 History Arthritis Pain 1% Gel] Gabapentin [Neurontin] 100 mg PO HS 07/21/20 01/25/21 History Warfarin [Coumadin] 2.5 mg PO SUTUWETHSA 07/21/20 01/25/21 History Clotrimazole Cream [Lotrimin Cream] 1 applic TOPICAL DAILY PRN 11/17/20 01/25/21 History Warfarin [Coumadin] 3.75 mg PO MOFR 11/17/20 01/25/21 History lisinopriL [Zestril] 2.5 mg PO DAILY 11/17/20 01/25/21 History amLODIPine [Norvasc] 2.5 mg PO DAILY 11/18/20 01/25/21 History Eye Drop For Allergies 1 drop BOTH EYES DIRECTED 11/30/20 01/25/21 History Furosemide [Lasix] 20 mg PO DAILY PRN 11/30/20 01/25/21 History Allergies Allergy/AdvReac Type Severity Reaction Status Date / Time codeine Allergy Nausea Verified 01/25/21 06:11 Latex, Natural Rubber Allergy Itching Verified 01/25/21 06:11 Penicillins Allergy Itching Verified 01/25/21 06:11 silver Allergy itchy, red Verified 01/25/21 06:11 [From Tegaderm AG Mesh] skin Physical Examination - Vital Signs Vital Signs: Vital Signs Temp Pulse Resp BP Pulse Ox 01/26/21 07:00 61 12 92 L 01/26/21 06:00 97.7 F 59 L 111/54 96 01/26/21 05:00 65 16 138/61 91 L 01/26/21 04:00 70 14 92 L 01/26/21 03:00 76 19 95 01/26/21 02:00 60 24 89 L 01/26/21 01:00 91 L 01/26/21 00:22 77 18 91 L 01/26/21 00:00 97.9 F 63 21 91 L 01/25/21 23:00 78 23 91 L 01/25/21 22:00 66 21 86 L 01/25/21 21:00 61 20 133/78 98 01/25/21 20:30 95 01/25/21 20:00 65 8 L 93 L 01/25/21 19:00 57 L 20 93 L 01/25/21 18:00 56 L 12 94 L 01/25/21 17:30 55 L 11 L 93 L 01/25/21 17:00 54 L 16 95 01/25/21 16:30 57 L 18 93 L 01/25/21 16:00 97.6 F 58 L 16 96 01/25/21 15:30 52 L 14 95 01/25/21 15:00 59 L 16 95 01/25/21 14:30 57 L 15 127/61 93 L 01/25/21 14:00 58 L 18 96 01/25/21 13:30 56 L 16 98 01/25/21 13:00 48 L 18 99 01/25/21 12:30 41 L 15 99 01/25/21 12:20 40 L 14 98 01/25/21 12:10 38 L 14 99 01/25/21 12:00 40 L 14 98 01/25/21 11:50 41 L 15 97 01/25/21 11:40 45 L 13 95 01/25/21 11:30 49 L 16 96 Intake and Output 01/25/21 01/26/21 01/26/21 22:59 06:59 14:59 Intake Total 100 100 Output Total 500 450 150 Balance -400 -350 -150 Intake: Intake, IV Titration 100 100 Amount ceFAZolin 3 gm In Sodium 100 100 Chloride 0.9% 100 ml @ 200 mls/hr IVPB Q8HR [facility] Rx#:[id number] Output: Urine 500 450 150 Other: Voiding Method Bedpan Bedpan External Catheter External Catheter # Voids 0 0 Weight 128 kg 128 kg ABP, PAP, CO, CI - Last 8 Hours Arterial Blood Pressure 132/49 GENERAL: The patient is a pleasant 80 y/o morbid obese woman, sitting on her chair and is not in acute distress. CHEST: The heart rate is regular rate rhythm. No murmurs to auscultation. No carotid bruit bilaterally. LUNG: Clear to auscultation bilaterally no wheezing noted throughout. Not labored breathing. ABDOMEN/GI: Bowel sounds present in all 4 quadrants. No tenderness to palpation throughout. NEUROLOGICAL: Higher mental function: The patient is awake, alert, oriented to self, place and time. Patient is following commands. No aphasia and no neglect. Cranial nerves: The pupils are round, equal and reactive to light. Visual case are full to confrontation throughout. Extraocular movement is intact no nystagmus is noted. Facial sensation is normal to touch throughout. The facial strength is mild left nasolabial flattening. Hearing is moderately decreased b ilaterally to hand rub. Tongue is midline and moved [id number] without any difficulty. No dysarthria is noted. Shoulder shrug is normal bilaterally. Motor: Gait is deferred. The strength is left upper extremity proximally is 4 and left hand deputy sheriff is 4+. Left lower extremity is 4+ but is limited because of pain. Otherwise 5 over 5 throughout. Normal tone and bulk. Cerebellum: Normal finger to nose bilaterally. Sensation: Sensation is normal to touch throughout. Reflexes (right/left): 2+ throughout uppers and 1+ in lowers. Plantars are mute bilaterally. Results - Laboratory Findings CBC and BMP: 01/26/21 04:30 01/26/21 04:30 Abnormal Lab Findings: Abnormal Labs 01/20/21 01/25/21 01/26/21 09:01 11:13 04:30 Lymphocytes # 0.7 L Sodium Chloride 108 H BUN 20 H Glucose 114 H Ionized Calcium Bianca 5.5 H AST 79 H ALT 66 H Total Protein 5.7 L Albumin 3.1 L Crossmatch See Detail 01/26/21 04:30 Lymphocytes # Sodium 136 L Chloride BUN Glucose 129 H Ionized Calcium Bianca 5.4 H AST 60 H ALT 51 H Total Protein 5.7 L Albumin 3.1 L Crossmatch Assessment and Plan Assessment: Acute left upper extremity weakness (per patient it is worse than baseline post- op). Unsure exact cause. Possibly stroke/TIA or possibly compression of left upper extremity due to her position during her surgery. Symptomatic severe aortic stenosis status post transcatheter aortic valve implantation postop day 1 History of atrial fibrillation status post ablation and is on the Coumadin as an outpatient Circumflex sleep apnea Mild coronary artery disease with previous history of 79 Hypertension COPD Morbid obesity Previous nicotine use Plan: Patient is currently on heparin drip. She is also on Plavix 75 mg daily per cardiothoracic team Continue Lipitor 40 mg daily at bedtime for secondary stroke prophylaxis. I ordered CT cervical spine. Cannot get MRI of the brain since patient has TAVR. Every 4 hours neuro checks Ordered TSH is level. Physical therapy and occupation therapy are consulted We'll defer the rest of the medical management to the cardiothoracic team We'll also defer the rest the medical management to the ICU team. Upon discharged at patient needs to follow-up with a neurologist in outpatient within 1-2 weeks. The plan is discussed with the patient's nurse. Thank you for the consultation. Dennis Perla MD Neuro-Hospitalist Time with Patient: Greater than 30
--- NOTE | 2021-01-26 13:55 | CT ---
EXAMINATION TYPE: CT cervical spine wo con DATE OF EXAM: 01/26/2021 COMPARISON: None HISTORY: Neck pain and left arm weakness. CT DLP: 694.[address] of the cervical spine was performed with bone and soft tissue window settings submitted . Coronal and sagittal reconstruction is obtained. There is normal alignment and prevertebral soft tissues. I do not see evidence for fracture or subluxation. C2-3: Within normal limits C3-4: Moderate degenerative disc space narrowing. Posterior disc bulge. No herniation protrusion or c entral stenosis. Bilateral neural foraminal encroachment. C4-C7: There are changes of anterior cervical discectomy and fusion at each of these levels. Anterior fixation plate and screws are in place. Alignment is anatomic. No evidence for recurrent or residual disease. Mild posterior ridging noted particularly at C6-7. C7-T1: Mild degenerative narrowing. No disc herniation protrusion or central stenosis. IMPRESSION: 1. Bilateral foraminal encroachment C3-4 secondary to degenerative hypertrophic change of the cervica l apophyseal joints. 2. Postoperative changes of ACDF extending from C4 through C7 with normal alignment and no evidence f or recurrent disease.
[2021-01-26 14:07] LABS: T4, Free (Free Thyroxine) 1.27 ng/dL (0.78-2.19)
[2021-01-26] MEDS ORDERED: WARFARIN 2.5 MG TAB PO ONE (18:00)
[2021-01-26] MEDS ORDERED: WARFARIN 2 MG TAB PO ONE (18:00)
[2021-01-26] MEDS ORDERED: WARFARIN 5 MG TAB PO ONE (18:00)
[2021-01-26] MEDS: GABAPENTIN 100 MG CAP PO SCH (20:09)
[2021-01-26] MEDS: ATORVASTATIN 40 MG TAB PO SCH (20:09)
[2021-01-26] MEDS ORDERED: SENNOSIDES-DOCUSATE SODIUM 1 EACH TAB PO SCH (21:00)
[2021-01-27] MEDS: HEPARIN SODIUM,PORCINE/PF 5,000 UNIT/0.5 ML SYRINGE SQ SCH (00:30)
[2021-01-27] MEDS: PANTOPRAZOLE 40 MG TABLET PO SCH (06:06)
[2021-01-27] MEDS: LEVOTHYROXINE 88 MCG TAB PO SCH (06:06)
[2021-01-27 07:56] LABS: HGB 13.3 gm/dL (11.4-16.0); MCH 31.2 pg (25.0-35.0); MCHC 32.4 g/dL (31.0-37.0); MCV 96.3 fL (80.0-100.0); Mean Platelet Volume 7.2; Platelet Count 191 k/uL (150-450); RBC 4.26 m/uL (3.80-5.40); RDW 13.6 % (11.5-15.5); WBC 6.1 k/uL (3.8-10.6)
[2021-01-27 08:02] VITALS: RESP 18
[2021-01-27 08:16] LABS: INR 0.9 (<1.2); Partial Thromboplastin Time 49.4 sec (22.0-30.0)
[2021-01-27 08:30] LABS: Albumin 3.6 g/dL (3.5-5.0); Calcium 9.6 mg/dL (8.4-10.2); Total Bilirubin 0.8 mg/dL (0.2-1.3); Total Protein 6.3 g/dL (6.3-8.2)
--- NOTE | 2021-01-27 08:37 | P.PN ---
Subjective Progress Note Date: 01/27/21 Principal diagnosis: Severe symptomatic aortic valve stenosis. Previous medical history of coronary artery disease with myocardial infarction status post stent placement to the [facility] coronary artery, sinus bradycardia with first-degree AV block, paroxysmal atrial fibrillation status post ablation on Coumadin for anticoagulation, hypertension, diet controlled diabetes, obstructive sleep apnea with home CPAP use, hypothyroid, previous tobacco dependence, obesity, and family history of premature coronary artery disease POD #2 catheter aortic valve implantation with a 29 mm core valve evolut pro plus via right percutaneous transfemoral approach with temporary pacing wire pl aced via right subclavian venous percutaneous approach, transesophageal echocardiogram performed by anesthesia, ultrasound-guided access and repair of right femoral artery access site by Perclose closure device, aortic root angiography, pre-and post balloon aortic valvuloplasty with a 22 mm and 24 mm True Blue Left arm weakness, dexterity issues after TAVR, uncertain if stroke/TIA versus compression of left upper extremity, CT of brain negative for any acute process The patient was seen and examined this morning on the cardiac stepdown unit. She denies any chest pain or shortness of breath. Her left arm weakness and dexterity issues seem to be resolving, she does still have some weakness in the left arm but she is able to barge loader appropriately, no other neurological deficits. Remains in sinus rhythm with first-degree AV block. Hemodynamically stable, currently on room air with oxygen saturation in the mid to high 90s. Able to achieve 1000 mL on incentive spirometry. Bilateral groin sites soft, ecchymotic, without drainage. Right-sided transvenous pacemaker wires remain present, grounded. She did ambulate to the bathroom this morning with a cane and standby assist. The patient lacks motivation and needs significant encouragement to get up and move. No other new concerns. Objective - Vital Signs Vital signs: Vital Signs Temp 98.4 F 01/27/21 08:02 Pulse 74 01/27/21 08:02 Resp 18 01/27/21 08:02 BP 120/62 01/27/21 08:02 Pulse Ox 98 01/27/21 08:02 Intake & Output 01/26/21 01/27/21 01/27/21 18:59 06:59 18:59 Intake Total 424.158 94.611 Output Total 700 100 Balance -275.842 -5.389 Weight 128 kg 128.5 kg Intake: Intake, IV Titration 174.158 94.611 Amount Heparin Sod,Pork in 0.45% 84.158 94.611 NaCl 25,000 unit In 0.45 % NaCl 1 250ml.bag @ 7. 812 UNITS/KG/HR 9.999 mls /hr IV .Q24H [facility] Rx#: [id number] Sodium Chloride 0.9% 1, 90 000 ml @ 0 mls/hr IV .[facility] Rx#:[id number] Oral 250 Output: Urine 700 100 Other: Voiding Method Bedpan Bedside Commode ABP, PAP, CO, CI - Last Documented Arterial Blood Pressure 132/49 - Exam CONSTITUTIONAL: Appears comfortable, cooperative RESPIRATORY: Lungs sounds diminished bilaterally. Respirations even, nonlabored. Currently on room air with oxygen saturation 98%. Able to achieve 1000 mL on incentive spirometry. Strong cough. CARDIOVASCULAR: S1, S2 present. Regular rate and rhythm, sinus rhythm with first-degree AV block on telemetry. Transvenous pacemaker wire present, grounded. Doppler lower extremity pulses bilaterally. No calf pain or tenderness noted. SCDs present. GASTROINTESTINAL: Abdomen soft, nontender, nondistended, obese. Active bowel sounds present 4 quadrants. Tolerating diet. GENITOURINARY: Continues to void INTEGUMENTARY: Skin is warm and dry. Bilateral groin sites soft, nontender, ecchymotic. NEUROLOGIC: Cranial nerves II through XII intact MUSKULOSKELETAL: Able to move all extremities, walks with a 4 pronged cane. Patient does have some noted mild left upper extremity weakness which is less than yesterday PSYCHIATRIC: Alert and oriented to person place and time - Labs CBC & Chem 7: 01/27/21 07:35 01/26/21 04:30 Labs: Abnormal Lab Results - Last 24 Hours (Table) 01/26/21 01/26/21 01/26/21 Range/Units 04:30 16:39 23:32 APTT 36.6 H 71.4 H (22.0-30.0) sec TSH 0.453 L (0.465-4.680) mIU/L 01/27/21 Range/Units 07:35 APTT 49.4 H (22.0-30.0) sec TSH (0.465-4.680) mIU/L Assessment and Plan Assessment: 1. Severe symptomatic aortic valve stenosis, status post TAVR with 29 mm core valve evolut pro plus 2. History of coronary artery disease with myocardial infarction status post stent placement to the right coronary artery 3. Sinus bradycardia with first-degree AV block 4. Paroxysmal atrial fibrillation status post ablation on Coumadin for anticoagulation 5. History of hypertension 6. History of diet controlled diabetes, recent hemoglobin A1c 5.7% 7. Obstructive sleep apnea with home CPAP use 8. Hypothyroid 9. Previous tobacco dependence, severe restrictive lung disease with preoperative FEV1 48% of predicted 10. Obesity 11. Family history of premature coronary artery disease 12. Left arm weakness, CT of brain negative for acute process Plan: 1. Will continue Plavix, statin. No beta dc, contraindicated due to significant bradycardia 2. Continue Coumadin with goal INR 2-3 3. Will discontinue transvenous pacemaker wire today 4. Neurology consulted, appreciate recommendations 5. Increase activity as tolerated. PT/OT following 6. Continue other home medications 7. Will order home care for RN, PT, OT to follow at home 8. Discharge planning in progress. Anticipate discharge to home later today versus tomorrow 9. More recommendations to follow Time with Patient: Greater than 30
[2021-01-27] MEDS: ACETAMINOPHEN TAB 325 MG TAB PO PRN (11:22)
[2021-01-27] MEDS: MAGNESIUM OXIDE 400 MG TAB PO SCH (11:23)
[2021-01-27] MEDS: amLODIPine 2.5 MG TAB PO SCH (11:23)
[2021-01-27] MEDS: CLOPIDOGREL 75 MG TAB PO SCH (11:23)
[2021-01-27] MEDS: MULTIVITAMINS, THERA 1 EACH TAB PO SCH (11:23)
[2021-01-27 11:41] VITALS: BP 148/64; PULSE 56; TEMP 97.9
--- NOTE | 2021-01-27 13:16 | P.PN ---
Subjective Progress Note Date: 01/27/21 The patient seen at bedside and she stated that she continues to have weakness over the left side but seems somewhat better but not back to baseline. She denies of any neurological problems Objective - Vital Signs Vital signs: Vital Signs Temp 97.9 F 01/27/21 11:41 Pulse 56 L 01/27/21 11:41 Resp 18 01/27/21 11:41 BP 148/64 01/27/21 11:41 Pulse Ox 97 01/27/21 11:41 Intake & Output 01/26/21 01/27/21 01/27/21 18:59 06:59 18:59 Intake Total 424.158 94.611 180 Output Total 700 100 Balance -275.842 -5.389 180 Weight 128 kg 128.5 kg Intake: Intake, IV Titration 174.158 94.611 Amount Heparin Sod,Pork in 0.45% 84.158 94.611 NaCl 25,000 unit In 0.45 % NaCl 1 250ml.bag @ 7. 812 UNITS/KG/HR 9.999 mls /hr IV .Q24H [facility] Rx#: [id number] Sodium Chloride 0.9% 1, 90 000 ml @ 0 mls/hr IV .[facility] Rx#:[id number] Oral 250 180 Output: Urine 700 100 Other: Voiding Method Bedpan Bedside Commode # Voids 2 ABP, PAP, CO, CI - Last Documented Arterial Blood Pressure 132/49 - Exam GENERAL: The patient is a pleasant 80 y/o morbid obese woman, sitting on her chair and is not in acute distress. NEUROLOGICAL: Higher mental function: The patient is awake, alert, oriented to self, place and time. Patient is following commands. No aphasia and no neglect. Cranial nerves: The pupils are round, equal and reactive to light. Visual case are full to confrontation throughout. Extraocular movement is intact no nystagmus is noted. Facial sensation is normal to touch throughout. The facial strength is mild left nasolabial flattening. Hearing is moderately decreased bilaterally to hand rub. Tongue is midline and moved [id number] without any difficulty. No dysarthria is noted. Shoulder shrug is normal bilaterally. Motor: Gait is deferred. The strength is left upper extremity proximally is 4 and left hand sound effects technician is 4+. Left lower extremity is 4+ but is limited because of pain. Otherwise 5 over 5 throughout. Normal tone and bulk. Cerebellum: Normal finger to nose bilaterally. Sensation: Sensation is normal to touch throughout. Reflexes (right/left): 2+ throughout uppers and 1+ in lowers. Plantars are mute bilaterally. WORK-UP: CT of the head is reported as age-related atrophic and chronic small vessel ischemic change without acute intracranial process seen at this time. CT cervicals reported as bilateral foraminal encroachment at C3-C4 secondary due to degenerative hypertrophic changes of the cervical apophyseal joint. Postoperative changes of the ACDF extending from C4 through C7 with normal alignment and no evidence for recurrent disease. 2D echo was reported as mild concentric left ventricle hypertrophy. Ejection fraction of 55-60%. Left atrial size is normal. TSH is 0.453 which is low but the free T4 is 1.27 - Labs CBC & Chem 7: 01/27/21 07:35 01/27/21 07:35 Labs: Abnormal Lab Results - Last 24 Hours (Table) 01/26/21 01/26/21 01/26/21 Range/Units 04:30 16:39 23:32 APTT 36.6 H 71.4 H (22.0-30.0) sec Sodium (137-145) mmol/L BUN (7-17) mg/dL Glucose (74-99) mg/dL AST (14-36) U/L ALT (4-34) U/L TSH 0.453 L (0.465-4.680) mIU/L 01/27/21 01/27/21 Range/Units 07:35 07:35 APTT 49.4 H (22.0-30.0) sec Sodium 136 L (137-145) mmol/L BUN 20 H (7-17) mg/dL Glucose 112 H (74-99) mg/dL AST 76 H (14-36) U/L ALT 48 H (4-34) U/L TSH (0.465-4.680) mIU/L Assessment and Plan Assessment: Acute left upper extremity weakness (per patient it is worse than baseline post- op). Unsure exact cause. Possibly stroke or possibly compression of left upper extremity due to her position during her surgery. Cervical spondylosis with history of cervical fusion Symptomatic severe aortic stenosis status post transcatheter aortic valve implantation postop day 1 History of atrial fibrillation status post ablation and is on the Coumadin as an outpatient Obstructive sleep apnea Mild coronary artery disease with previous history of 79 Hypertension COPD Morbid obesity Previous nicotine use Plan: Patient is currently on heparin drip. She is also on Plavix 75 mg daily per cardiothoracic team Continue Lipitor 40 mg daily at bedtime for secondary stroke prophylaxis. Cannot get MRI of the brain since patient has TAVR. Patient does not want any further repeat CT of the head (to assess if any changes compared to yesterday CT). She doesn't want a further workup and was to be discharged home Every 4 hours neuro checks Physical therapy and occupation therapy are consulted We'll defer the rest of the medical management to the cardiothoracic team Upon discharged at patient needs to follow-up with a neurologist in outpatient within 1-2 weeks. The plan is discussed with the patient's nurse. There is no further work-up. Dennis Perla MD Neuro-Hospitalist Time with Patient: Less than 30
--- NOTE | 2021-01-27 13:26 | P.PN ---
Subjective Progress Note Date: 01/27/21 Plan 1 2020, the patient is also the intensive care unit. Left upper extremity weakness is improving.He is also improving her left arm. The patient is post TAVR procedure. She is postop day 2.. On today's evaluation, she is hemodynamically stable. She is using incentive spirometer. She is in a sinus rhythm with a first-degree AV block. The groins are clear. After removing the triple-lumen catheter from the right neck, she developed some oozing and bleeding from the right neck puncture site. Currently there is a pressure dressing and there is no hematoma. Meanwhile, some Surgicel was applied to the right neck area. No active bleeding for now. She is on room air oxygen. No other concerns otherwise for now. She is known to have CAD, previous CT, previous coronary stent, and she has paroxysmal atrial fibrillation and she has been ablated in the past and she is on warfarin. Other 4 L of fluid hypertension, diabetes and obstructive sleep apnea and hypothyroidism. No altered mentation. The CAT scan of the C-spine showed foraminal encroachment at the level of C3-C4 secondary to degenerative hypertrophic changes and there is also some old postop changes involving the C4 through C7. No new onset neurologic onset sepsis. Neurologically on the case. Objective - Vital Signs Vital signs: Vital Signs Temp 97.9 F 01/27/21 11:41 Pulse 56 L 01/27/21 11:41 Resp 18 01/27/21 11:41 BP 148/64 01/27/21 11:41 Pulse Ox 97 01/27/21 11:41 Intake & Output 01/26/21 01/27/21 01/27/21 18:59 06:59 18:59 Intake Total 424.158 94.611 180 Output Total 700 100 Balance -275.842 -5.389 180 Weight 128 kg 128.5 kg Intake: Intake, IV Titration 174.158 94.611 Amount Heparin Sod,Pork in 0.45% 84.158 94.611 NaCl 25,000 unit In 0.45 % NaCl 1 250ml.bag @ 7. 812 UNITS/KG/HR 9.999 mls /hr IV .Q24H [facility] Rx#: [id number] Sodium Chloride 0.9% 1, 90 000 ml @ 0 mls/hr IV .[facility] Rx#:[id number] Oral 250 180 Output: Urine 700 100 Other: Voiding Method Bedpan Bedside Commode # Voids 2 ABP, PAP, CO, CI - Last Documented Arterial Blood Pressure 132/49 - Exam GENERAL EXAM: Alert, 80-year-old female on room air, with O2 sat at 92%, she is having some weakness in the left upper extremity, comfortable in no apparent distress. HEAD: Normocephalic/atraumatic. EYES: Normal reaction of pupils, equal size. Conjunctiva pink, sclera white. NOSE: Clear with pink turbinates. THROAT: No erythema or exudates. NECK: No masses, no JVD, no thyroid enlargement, no adenopathy. CHEST: No chest wall deformity. Symmetrical expansion. Right subclavian temporary pacemaker wire insertion site is clean dry and intact LUNGS: Equal air entry with no crackles, wheeze, rhonchi or dullness. CVS: Regular rate and rhythm, normal S1 and S2, no gallops, no murmurs, no rubs ABDOMEN: Soft, nontender. No hepatosplenomegaly, normal bowel sounds, no guarding or rigidity. EXTREMITIES: She is having some weakness and dexterity issues with her left upper extremity. No clubbing, no edema, no cyanosis, 2+ pulses and upper and lower extremities. MUSCULOSKELETAL: Muscle strength and tone normal. SPINE: No scoliosis or deformity SKIN: No rashes, patient has a scab on the right upper arm, and areas of fading bruising on left arm from recent fall CENTRAL NERVOUS SYSTEM: Alert and oriented -3. Left upper extremity weakness, tone is normal in all 4 extremities. PSYCHIATRIC: Alert and oriented -3. Appropriate affect. Intact judgment and insight. - Labs CBC & Chem 7: 01/27/21 07:35 01/27/21 07:35 Labs: Abnormal Lab Results - Last 24 Hours (Table) 01/26/21 01/26/21 01/27/21 Range/Units 16:39 23:32 07:35 APTT 36.6 H 71.4 H (22.0-30.0) sec Sodium 136 L (137-145) mmol/L BUN 20 H (7-17) mg/dL Glucose 112 H (74-99) mg/dL AST 76 H (14-36) U/L ALT 48 H (4-34) U/L 01/27/21 Range/Units 07:35 APTT 49.4 H (22.0-30.0) sec Sodium (137-145) mmol/L BUN (7-17) mg/dL Glucose (74-99) mg/dL AST (14-36) U/L ALT (4-34) U/L Assessment and Plan Plan: 1 Symptomatic severe calcific aortic stenosis, status post transcatheter aortic valve implantation via right percutaneous transfemoral approach, postop day #2 2 Left upper extremity weakness post op , consider CVA post TAVR, neurology is also on the case. Motor function is improving grossly left upper extremity. The patient was not interested in obtaining a follow-up computed tomography scan of the head today. No new onset neurologic deficits for now. She is on warfarin and Plavix 3 History of atrial fibrillation status post ablation, currently in sinus mechanism on warfarin in the outpatient setting, the patient was restarted on warfarin and she is also on Plavix. 4 Hypertension 5 Mild COPD 6 Previous tobacco use 7 Morbid obesity 8 Obstructive sleep apnea 9 Mild coronary artery disease, with previous history of stenting 10 bleeding from a right IJ puncture site and Surgicel was applied along with p ressure dressing. Is being monitored. Plan: continue aspirin and warfarin and monitor the patient's PT/INR. INR from today is at subtherapeutic level. Monitor for any signs of bleeding from the right IJ site Neurologist on the case and the patient's motor function the left upper extremit y improving Computed tomography scan of the neck was noted Stable from the pulmonary standpoint, utilizing the incentive spirometer, on room air We will sign off the case and we'll leave the rest of the management of cardiology and neurology on the medical team.
--- NOTE | 2021-01-27 14:38 | P.DS ---
Providers Date of admission: 01/25/21 05:46 Expected date of discharge: 01/27/21 Attending physician: Nate Middleton DO Consults: 01/23/21 10:19 Consult to Anesthesia Routine Consulting Provider: Anesthesia,Services Consult Reason/Comments: Cardiac Surgery Pre-Op 01/25/21 10:37 Consult Physician Routine Consulting Provider: Lucie Damon Consult Reason/Comments: [employer] Consult: post cardiac surgery Do you want consulting provider notified?: Yes 01/25/21 10:44 Consult Physician Routine Consulting Provider: Stan Lagos Consult Reason/Comments: tavr Do you want consulting provider notified?: Already Contacted 01/26/21 07:47 Consult Physician Routine Consulting Provider: Dennis Perla Consult Reason/Comments: new left arm weakness post TAVR Do you want consulting provider notified?: Yes Primary care physician: Julieth Triana Hospital Course: FINAL DIAGNOSIS: 1. Severe symptomatic aortic valve stenosis 2. History of coronary artery disease with myocardial infarction status post stent placement to the right coronary artery 3. Sinus bradycardia with first-degree AV block 4. Paroxysmal atrial fibrillation status post ablation on Coumadin for anticoagulation 5. History of hypertension 6. History of diet-controlled diabetes, recent hemoglobin A1c 5.7% 7. Obstructive sleep apnea with home CPAP use 8. Hypothyroid 9. Previous tobacco dependence, severe restrictive lung disease with preoperative FEV1 48% of predicted 10. Obesity 11. Family history of premature coronary artery disease 12. Left arm weakness, CT of brain negative for acute process PRINCIPAL PROCEDURE: 1. Transcatheter aortic valve implantation with a 29 mm Core Valve Evolut Pro Plus via right percutaneous transfemoral approach 2. Temporary pacing wire placed via right subclavian venous percutaneous approach 3. Transesophageal echocardiogram performed by anesthesia 4. Ultrasound-guided access and repair of right femoral artery access site by Perclose closure device 5. Aortic root angiography 6. Pre-and post balloon aortic valvuloplasty with a 20 mm and 24 mm True balloon HISTORY OF PRESENT ILLNESS: This is a 80-year-old inactive obese female patient who follows with Dr Triana for primary care and Dr. Briscoe for cardiology. She has a known history of severe aortic stenosis, NYHA class III and has been symptomatic with increased exertional dyspnea and lightheadedness. She had been referred to the structural heart clinic for evaluation for transcatheter aortic valve replacement after heart catheterization and transesophageal echocardiogram were completed. Echocardiography demonstrated normal left ventricular systolic function with EF 55%, trileaflet calcified aortic valve with valve area 1.2 cm by planimetry, max velocity 4.4 m/s, and mean gradient 41 mmHg consistent with severe aortic stenosis. Heart catheterization showed mild CAD with only mild luminal irregularities and patent RCA stent, as well as severe aortic stenosis with peak/mean gradient 70/50 mmHg. After workup was completed STS risk score was calculated along with incremental risk and the patient was felt to be high risk for surgical aortic valve replacement, therefore transcatheter aortic valve replacement was recommended. The usual course of TAVR was discussed in detail with the patient, risks and benefits were reviewed, shared decision making between cardiology, surgery, and the patient/family took place, and the patient consented to proceed with the procedure. HOSPITAL COURSE: The patient was brought to the hospital on 01/25/21, taken to the extended stay area, prepared in the usual fashion, and subsequently taken to the cardiac catheterization laboratory where Dr. Middleton and Dr. Lagos completed TAVR procedure under general anesthesia with fluoroscopy and SAUL. The valve was deployed under rapid ventricular pacing and proceeded without event. At the end of the procedure the valve appeared to be seated well, peak/mean g radient was 10/5 mmHg, and there was trace aortic regurgitation seen. Upon completion of the procedure the patient was extubated and was transferred to the cardiovascular intensive care unit where she was recovered and monitored hemodynamically. She did experience some left arm weakness and dexterity issues, CT of the brain demonstrated no acute process, neurology was consulted, and her weakness was improved within a matter of hours. Her oxygen was titrated down, she was tolerating oral diet, her pain was controlled, follow-up TTE demonstrated normal left ventricular systolic function with EF 55-60%, no aortic regurgitation, peak/mean gradient across aortic valve 17.7/10.33 mmHg, normally functioning bioprosthetic valve, trace mitral regurgitation, and trace tricuspid regurgitation, and she was ready to be discharged to home with [facility] on postoperative day #2. She received written and verbal instruction regarding her medications, activity restrictions, signs and symptoms requiring physician notification, and follow-up appointments. The patient will not be discharged on beta dc as it is contraindicated due to bradycardia. Patient Condition at Discharge: Stable Plan - Discharge Summary Discharge Rx Participant: Yes New Discharge Prescriptions: New Clopidogrel [Plavix] 75 mg PO DAILY #30 tab Acetaminophen Tab [Tylenol] 650 mg PO Q4HR PRN tab PRN Reason: Fever And/ Or Mild Pain (1-3) Continue Multivitamins, Thera [Multivitamin (formulary)] 1 tab PO DAILY Magnesium Oxide [Mag-Ox] 250 mg PO BID Levothyroxine Sodium [Synthroid] 88 mcg PO DAILY Diclofenac Sodium [Voltaren Arthritis Pain 1% Gel] 2 gm TOPICAL DAILY PRN PRN Reason: Pain Gabapentin [Neurontin] 100 mg PO HS Atorvastatin [Lipitor] 40 mg PO HS lisinopriL [Zestril] 2.5 mg PO DAILY amLODIPine [Norvasc] 2.5 mg PO DAILY Furosemide [Lasix] 20 mg PO DAILY PRN PRN Reason: swelling Eye Drop For Allergies 1 drop BOTH EYES DIRECTED Warfarin [Coumadin] 2.5 mg PO SUTUWETHSA Cinnamon Bark [Cinnamon] 250 mg PO BID Clotrimazole Cream [Lotrimin Cream] 1 applic TOPICAL DAILY PRN PRN Reason: FUNGAL INFECTION Warfarin [Coumadin] 3.75 mg PO MOFR Discontinued Aspirin 81 mg PO DAILY Acetaminophen [Tylenol Arthritis] 1,300 mg PO DAILY PRN PRN Reason: Pain Discharge Medication List Magnesium Oxide [Mag-Ox] 250 mg PO BID 02/24/19 [History] Multivitamins, Thera [Multivitamin (formulary)] 1 tab PO DAILY 02/24/19 [History] Levothyroxine Sodium [Synthroid] 88 mcg PO DAILY 02/26/19 [History] Atorvastatin [Lipitor] 40 mg PO HS 07/21/20 [History] Cinnamon Bark [Cinnamon] 250 mg PO BID 07/21/20 [History] Diclofenac Sodium [Voltaren Arthritis Pain 1% Gel] 2 gm TOPICAL DAILY PRN 07/21/20 [History] Gabapentin [Neurontin] 100 mg PO HS 07/21/20 [History] Warfarin [Coumadin] 2.5 mg PO SUTUWETHSA 07/21/20 [History] Clotrimazole Cream [Lotrimin Cream] 1 applic TOPICAL DAILY PRN 11/17/20 [History] Warfarin [Coumadin] 3.75 mg PO MOFR 11/17/20 [History] lisinopriL [Zestril] 2.5 mg PO DAILY 11/17/20 [History] amLODIPine [Norvasc] 2.5 mg PO DAILY 11/18/20 [History] Eye Drop For Allergies 1 drop BOTH EYES DIRECTED 11/30/20 [History] Furosemide [Lasix] 20 mg PO DAILY PRN 11/30/20 [History] Acetaminophen Tab [Tylenol] 650 mg PO Q4HR PRN tab 01/27/21 [Rx] Clopidogrel [Plavix] 75 mg PO DAILY #30 tab 01/27/21 [Rx] Follow up Appointment(s)/Referral(s): Fantasma Briscoe MD [STAFF PHYSICIAN] - 02/03/21 3:00 pm (Appointment 02/03 @ [address] Briscoe for groin check will be at the [facility] office; you also have an appointment at the main cardiology office on [address] [place] [address] for a 30 day post TAVR echocardiogram, office will call with date and time before you leave for [place]) Flakita Gomez NPC [Nurse Practitioner] - 3 Weeks (We will call you with a date and time before you leave for [place]. This appointment will follow your 30 day echo appointment, it will be at the Valve clinic [facility], [address] [place] [address], [address]) Dennis Perla MD [STAFF PHYSICIAN] - 2 Weeks Julieth Triana MD [Primary Care Provider] - As Needed [facility], [NON-STAFF] - 1-2 Days Activity/Diet/Wound Care/Special Instructions: DISCHARGE INSTRUCTIONS: 1. No driving for 1 week, or until physician gives their ok. 2. No lifting, pushing, or pulling more than 5-10 pounds for 1 week. 3. Hold both groins when you cough or sneeze for the next 2 weeks. Bruising is common, but report increased swelling, pain or fever >101F 4. Shower daily. No pool, hot tub, or bathtub for 1 week 5. No powders, lotions, ointments on incisions. 6. No straining, including for bowel movements. Use stool softner if necessary 7. Stairs are not an issue. Go slowly, using handrail and take 1 step at a time. Ambulate several times daily 8. Continue pain control per as needed orders. 9. Take only the medications listed on your discharge form 10. Eat low salt (limited to 2 grams or 2000 milligrams) daily, avoid adding salt, avoid canned/processed foods 11. Take your weight daily in the morning and record, bring with you to your follow up appointments 12. Keep all follow up appointments. You will need a valve clinic appointment at 30 days and 1 year post procedure for follow up 13. You have been referred to and are expected to begin Cardiac Rehab in approximately 4 weeks. 14. You will need antibiotics prior to any dental work, including cleanings, and any surgeries to prevent Endocarditis (bacterial infection in your heart) For any questions or concerns please call your valve coordinators: Flakita or Miles @ Discharge Disposition: HOME WITH HOME HEALTH SERVICES
[2021-01-27] MEDS ORDERED: WARFARIN 3 MG TAB PO ONE (18:00)
[2021-01-27] MEDS ORDERED: WARFARIN 0.5 MG TAB PO ONE (18:00)
== END 2021-01-27 17:05 | disposition home health service (06) | DRG 267 ==
LOC: 2ORMAIN 05:46 → 2SICU 10:12 → 3SCARD 01-26 17:02
PROVIDERS: ADMIT Internal Medicine; ATTEND Internal Medicine
PROC: 04QK0ZZ Repair Right Femoral Artery, Open Approach (ICD-10-PCS; 2021-01-25)
PROC: 5A1223Z Performance of Cardiac Pacing, Continuous (ICD-10-PCS; 2021-01-25)
PROC: B3101ZZ Fluoroscopy of Thoracic Aorta using Low Osmolar Contrast (ICD-10-PCS; 2021-01-25)
PROC: B24BZZ4 Ultrasonography of Heart with Aorta, Transesophageal (ICD-10-PCS; 2021-01-25)
PROC: 02RF38Z Replacement of Aortic Valve with Zooplastic Tissue, Percutaneous Approach (ICD-10-PCS; principal; 2021-01-25 08:00)
DX: I35.2 Nonrheumatic aortic (valve) stenosis with insufficiency (principal); Z68.43 Body mass index [BMI] 50.0-59.9, adult; E03.9 Hypothyroidism, unspecified; E11.9 Type 2 diabetes mellitus without complications; E66.01 Morbid (severe) obesity due to excess calories; E78.5 Hyperlipidemia, unspecified; G47.33 Obstructive sleep apnea (adult) (pediatric); I10 Essential (primary) hypertension; I25.10 Atherosclerotic heart disease of native coronary artery without angina pectoris; I25.2 Old myocardial infarction; I44.0 Atrioventricular block, first degree; R53.1 Weakness; I48.0 Paroxysmal atrial fibrillation; J44.9 Chronic obstructive pulmonary disease, unspecified; M47.812 Spondylosis without myelopathy or radiculopathy, cervical region; Z79.01 Long term (current) use of anticoagulants; Z79.82 Long term (current) use of aspirin; Z79.890 Hormone replacement therapy; Z79.899 Other long term (current) drug therapy; Z20.822 Contact with and (suspected) exposure to COVID-19; Z82.49 Family history of ischemic heart disease and other diseases of the circulatory system; Z87.442 Personal history of urinary calculi; Z87.891 Personal history of nicotine dependence; Z90.710 Acquired absence of both cervix and uterus; Z95.5 Presence of coronary angioplasty implant and graft; Z98.1 Arthrodesis status; Z88.5 Allergy status to narcotic agent; Z88.0 Allergy status to penicillin; Z88.8 Allergy status to other drugs, medicaments and biological substances; Z91.040 Latex allergy status
CPT/HCPCS: 33361; 36415; 70450; 71045; 72125; 80053; 82330; 83735; 84439; 84443; 85025; 85027; 85610; 85730; 86850; 86900; 86901; 86920; 87635; 93005; 93306; 93312; 93320; 93325

== ENCOUNTER → 2021-02-17 | Outpatient (CLI) | payer MEDICARE ==
[2021-02-17 09:30] LABS: Basophils % (A) 0 %; Eosinophils # (A) 0.1 k/uL (0-0.7); Eosinophils % (A) 4 %; HCT 42.5 % (34.0-46.0); HGB 13.8 gm/dL (11.4-16.0); Lymphocytes # (A) 1.1 k/uL (1.0-4.8); Lymphocytes % (A) 32 %; MCH 31.2 pg (25.0-35.0); MCHC 32.4 g/dL (31.0-37.0); MCV 96.1 fL (80.0-100.0); Mean Platelet Volume 6.8; Monocytes # (A) 0.3 k/uL (0-1.0); Monocytes % (A) 7 %; Neutrophils # (A) 1.8 k/uL (1.3-7.7); Neutrophils % (A) 52 %; Platelet Count 225 k/uL (150-450); RBC 4.42 m/uL (3.80-5.40); RDW 13.3 % (11.5-15.5); WBC 3.4 k/uL (3.8-10.6)
[2021-02-17 09:44] LABS: African American GFR (CKD) 83 (>60 ml/min/1.73 sqM); Anion Gap 6 mmol/L; Blood Urea Nitrogen 19 mg/dL (7-17); Calcium 10.2 mg/dL (8.4-10.2); Carbon Dioxide 30 mmol/L (22-30); Chloride 103 mmol/L (98-107); Glucose 105 mg/dL (74-99); Non-African American GFR(CKD) 72 (>60 ml/min/1.73 sqM); Potassium 4.2 mmol/L (3.5-5.1); Sodium 139 mmol/L (137-145)
== END | disposition home or self-care (01) ==
LOC: LABWHC1 08:14
PROVIDERS: ATTEND Thoracic Surgery (Cardiothoracic Vascular Surgery)
DX: I35.1 Nonrheumatic aortic (valve) insufficiency (principal)
CPT/HCPCS: 36415; 80048; 85025